=== PATIENT | male | born 1975 | race Caucasian/White ===

== ENCOUNTER 2023-03-25 08:48 | Inpatient (IN) ==
[~2023-03-25 08:48] MED LIST: Patient's ALLERGY Info needs ENTERED SCH
--- NOTE | 2023-03-25 09:29 | Emergency Department Note ---
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 Patient history is provided by [id number]. Patient had a care in [facility] for his brain cancer. He had surgical resection with almost complete resolution of his cancer. He had an MRI that showed a small spot that could been scarring versus nonmalignant lesion previously. He is not had a seizure in 2+ years and is not on any antiseizure medications. Today he had a 8-minute tonic-clonic seizure as per [id number] who has medical training. He is now somewhat postictal, confused, does not member had a seizure. Unwitnessed fall, on apixaban. ROS: See above HPI for pertinent positives & negatives. A total of 10 systems reviewed and were otherwise negative. PAST MEDICAL HISTORY: See Below PAST SURGICAL HISTORY: See Below FAMILY HISTORY: See Below SOCIAL HISTORY: See Below HOME MEDICATIONS: See Below ALLERGIES: See Below VITALS: See Below PHYSICAL EXAMINATION: General: resting comfortably in no acute distress Head: Normocephalic and atraumatic Eyes: Normal inspection, extraocular muscles intact Ear, nose, throat: Normal external exam Neck: Normal range of motion Respiratory: lungs clear to auscultation bilaterally Cardiovascular: Regular rate/rhythm, no murmur GI: soft, nontender, no guarding or rebound Extremities: nontender, moves all extremities Neuro: The patient awake and alert, appropriately conversive, no focal deficits, symmetric faces, cranial nerves II through XII intact, no dysmetria Skin: Warm, dry, and intact MEDICAL DECISION MAKING: This is a 47-year-old male history as above presenting for seizure. Will do screening blood work, COVID-19 test (patient has been negative for COVID-19 in the last 2 weeks but both his brother and [id number] were symptomatic), and MRI of the brain to assess for his anaplastic astrocytoma. -Lab review showed no leukocytosis or anemia, electrolytes within normal limits, slight anion gap with low CO2, likely from seizure causing lactic acidosis, COVID/flu negative -I was alerted that patient was having aura sensation with right eye blurred vision and doubling of patient's words -Previously this is how patient had seizures -Given 2 mg of IV Ativan -Due to patient's unwitnessed fall and blood thinners, stat CT of the head was done. Transfer the patient to CT to evaluate for clinical instability -Patient had no recurrent seizure -Upon my wet read, I see no intracranial hemorrhage or signs of skull fracture -CT of the head reveals no acute cranial process on official radiology read -Patient loaded with 2 g of IV Keppra -Upon evaluation patient is much less confused, having no new neurodeficits -Patient will require admission at this time for medication management, further seizures/brain mass workup including MRI Differential diagnosis: Seizure, intracranial hemorrhage, brain mass ER treatment provided: See below Diagnostics interpreted by me: ECG: ECG independently interpreted by me with normal sinus rhythm, rate of 73, normal axis, normal MD, normal QRS, normal QTc, no ST segment elevations consistent with STEMI criteria Cardiac Monitoring: An order was placed for continuous cardiac monitoring. The monitor shows a rate of 74 with sinus rhythm. Laboratory studies: As stated above and show below. Imaging studies: See below. Critical Care Note: I have personally spent 30 minutes of critical care time in the direct management of this patient. This includes bedside care, interpretation of diagnostic studies, and testing, discussion with consultants, patient, and family members, and other required patient management activities. This 30 minutes is in excess of all separately billable procedures Past Med/Surg History Medical History (Updated 03/25/23 @ 16:44 by Le Ruth MD) History of pulmonary embolus (PE) Hyperlipidemia Tonic-clonic seizure Social History Smoking Status: Former smoker Preferred Language: Indian Beliefs That Will Affect Care: Hoahaoism Feels Safe at Home: Yes Allergies Allergies Allergy/AdvReac Type Severity Reaction Status Date / Time No Known Allergies Allergy Unverified 03/25/23 14:08 Home Meds Home Medications Medication Instructions Recorded Confirmed apixaban 5 mg tablet 5 mg PO BID 03/25/23 03/25/23 atorvastatin 10 mg tablet 10 mg PO HS 03/25/23 03/25/23 Results & Data (ED) Vital Signs Vital Signs - 24 hr 03/25/23 08:43 03/25/23 08:52 03/25/23 08:55 Temperature 36.6 C Temperature Source Oral Pulse Rate 97 H 92 H Pulse Rate from SpO2 Sensor Respiratory Rate 16 Blood Pressure 89/67 L Blood Pressure [Left Arm] Blood Pressure Mean 74 Blood Pressure Mean [Left Arm] Pulse Oximetry 96 Oxygen Delivery Method Room Air Sepsis Recent Fever Within 48 Hours No Sepsis New/Unexplained Change in Mental Status N/A Sepsis Action Taken by Nursing No Action Required 03/25/23 09:15 03/25/23 10:57 03/25/23 11:01 Temperature Temperature Source Pulse Rate 83 85 Pulse Rate from SpO2 Sensor 84 Respiratory Rate 15 15 Blood Pressure 140/80 137/86 Blood Pressure [Left Arm] 124/86 Blood Pressure Mean 100 103 Blood Pressure Mean [Left Arm] 98 Pulse Oximetry 94 94 Oxygen Delivery Method Room Air Sepsis Recent Fever Within 48 Hours Sepsis New/Unexplained Change in Mental Status Sepsis Action Taken by Nursing 03/25/23 11:30 Temperature Temperature Source Pulse Rate 86 Pulse Rate from SpO2 Sensor Respiratory Rate 24 Blood Pressure 125/95 Blood Pressure [Left Arm] Blood Pressure Mean 105 Blood Pressure Mean [Left Arm] Pulse Oximetry Oxygen Delivery Method Sepsis Recent Fever Within 48 Hours Sepsis New/Unexplained Change in Mental Status Sepsis Action Taken by Nursing Laboratory Data 03/25/23 09:03 03/25/23 09:03 Lab Results 03/25/23 03/25/23 03/25/23 Range/Units 09:03 09:09 09:25 WBC 8.73 (4.8-10.8) K/ul RBC 5.23 (4.70-6.10) M/uL Hgb 15.4 (14.0-18.0) g/dl POC Hgb 15.6 (14.0-18.0) g/dl Hct 46.7 (42.0-52.0) % POC Hct 46 (42-52) % MCV 89.3 (80.0-100.0) fL MCH 29.4 (25.0-34.0) pg MCHC 33.0 (32.0-36.0) g/dL RDW Std Deviation 42.2 (36.4-46.3) fL RDW Coeff of Aj 12.8 (11.5-14.5) % Plt Count 285 (130-400) K/uL MPV 9.7 (9.4-12.4) fL Immature Gran % (Auto) 0.2 % Neut % (Auto) 43.1 % Lymph % (Auto) 44.3 % [place] % (Auto) 9.2 % Eos % (Auto) 2.6 % Baso % (Auto) 0.6 % Neut # (Auto) 3.76 (1.40-6.50) K/uL Lymph # (Auto) 3.87 H (1.20-3.40) K/uL [place] # (Auto) 0.80 H (0.11-0.59) K/uL Eos # (Auto) 0.23 (0.00-0.50) K/uL Baso # (Auto) 0.05 (0.00-0.20) K/uL Immature Gran # (Auto) 0.02 (0.01-0.20) K/uL POC Sodium 140 (135-144) mmol/L Sodium 140 (136-145) mmol/L POC Potassium 3.8 (3.3-5.0) mmol/L Potassium 3.9 (3.5-5.1) mmol/L POC Chloride 103 (101-112) mmol/L Chloride 103 (98-107) mmol/L Carbon Dioxide 21 (21-32) mmol/L POC Total CO2 20 L (24-31) mmol/L Anion Gap 16 H (3-11) POC Anion Gap 22.0 (16-25) mmol/L POC BUN 14 (7-18) mg/dl BUN 15 (6-23) mg/dl Creatinine 0.88 (0.6-1.4) mg/dl POC Creatinine 0.9 (0.6-1.3) mg/dl Est Cr Clr Drug Dosing 132.5 ml/min Est GFR ( Amer) 117.7 ml/min Est GFR (Non-Af Amer) 101.6 ml/min BUN/Creatinine Ratio 17.0 (10-20) Glucose 128 H (70-99(Fasting)) mg/dl POC Glucose (other) 121 H (70-99) mg/dl Calcium 9.5 (8.6-10.3) mg/dl POC Ioniz Calcium Jignesh 1.21 (1.12-1.32) mmol/l Magnesium 2.0 (1.7-2.4) mg/dl Total Bilirubin 0.9 (0.2-1.0) mg/dl AST 16 (13-39) U/L ALT 22 (7-52) U/L Alkaline Phosphatase 50 (34-104) U/L Total Protein 6.9 (6.0-8.3) gm/dl Albumin 4.5 (3.4-5.0) gm/dl Globulin 2.4 L (2.5-4.0) gm/dl Albumin/Globulin Ratio 1.9 (0.9-2) SARS-CoV-2 (PCR) NEGATIVE (Negative) Influenza Type A (PCR) Negative (Neg) Influenza Type B (PCR) Negative (Neg) RSV (RT-PCR) Negative (Neg) Administered Medications Lorazepam 2 mg/ Syringe 2 mls @ 2 mls/min IV Q5M PRN PRN Reason: seizure Last Admin: 03/25/23 13:31 Dose: 2 mls/min Documented By: CPB Discontinued Medications Gadobutrol (Gadobutrol 30ml Vial) 10 ml IV ONCE ONE Stop: 03/25/23 14:30 Last Admin: 03/25/23 14:29 Dose: 10 ml Documented By: TONY Levetiracetam 2,000 mg/ Sodium (Chloride) 270 mls @ 999 mls/hr IV NOW STA Stop: 03/25/23 11:19 Last Infusion: 03/25/23 11:53 Dose: Infused Documented By: Admin: 03/25/23 11:26 Dose: 999 mls/hr Documented By: CPB Acetaminophen (Ofirmev) 1,000 mg in 100 mls @ 400 mls/hr IV NOW STA Stop: 03/25/23 14:18 Last Infusion: 03/25/23 15:08 Dose: Infused Documented By: Admin: 03/25/23 14:50 Dose: 400 mls/hr Documented By: CPB Lorazepam (Lorazepam 1 Mg/1 Ml Syr Ed Inj Use) Confirm Administered Dose 2 mg .ROUTE .STK-MED ONE Stop: 03/25/23 10:44 Last Admin: 03/25/23 10:59 Dose: 2 mg Documented By: ML Lorazepam (Lorazepam 1 Mg/1 Ml Syr Ed Inj Use) Confirm Administered Dose 2 mg .ROUTE .STK-MED ONE Stop: 03/25/23 13:28 Last Admin: 03/25/23 13:31 Dose: Not Given Documented By: CPB Imaging Data Radiologist's Impression: Brain MRI 03/25/23 09:19 MR brain wo/w con HISTORY: 47 years-old Male hx of anaplastic astrocytoma sx, now Seizure Acute seizure-like activity with prior intra-axial mass resection. COMPARISON: Head CT of same day. TECHNIQUE: Multiplanar and multisequence MRI of the brain was obtained both with and without the use of IV contrast. FINDINGS: Mildly motion degraded exam. Left parietal lobe of 4.5 cm resection cavity/encephalomalacia with adjacent craniotomy changes that are again noted. Punctate foci of susceptibility artifact are likely postsurgical. No acute or subacute infarct is identified. The midline structures appear unremarkable. There is no acute intracranial hemorrhage, midline shift, abnormal extra-axial collection or new intra-axial mass. There is a moderate amount of vasogenic edema within the left parietal lobe, which is most pronounced in the anterior and superior to the resection cavity with extension to the posterior corpus callosum. Within this distribution, there is no restricted diffusion, abnormal enhancement or discrete mass identified. No acute seizure focus is identified. No evidence of mesiotemporal sclerosis. The cerebral venous sinuses and major arterial flow voids appear patent. The skull, orbits and soft tissues are unremarkable. Minimal mucosal thickening of the paranasal sinuses. IMPRESSION: 1. No acute intracranial abnormality. No acute or subacute infarct. 2. No acute seizure focus or evidence of mesiotemporal sclerosis. 3. Left parietal lobe resection with craniotomy. Vasogenic edema within the left parietal lobe surrounding the resection cavity is nonspecific and may be on a post-treatment related basis. 4. No midline shift or hydrocephalus. ACT 112: Negative or not required by law. The above report was generated using voice recognition software. It may contain grammatical, syntax or spelling errors. Dictated: 03/25/2023 2:43 PM Transcribed: 03/25/2023 2:57 PM Matthew [id number] [email or web address] Electronically signed by: Nik Huddleston M.D. 03/25/2023 4:[address] 03/25/23 10:46 CT head/brain wo con CLINICAL HISTORY: 47 years-old Male with Seizure. Acute seizure like activity with altered mental status TECHNIQUE: Multiple axial CT images of the head were obtained without contrast. A dose lowering technique was utilized adhering to the principles of ALARA. CT DOSE: 625.8 mGy.cm COMPARISON: None. FINDINGS: No acute intracranial hemorrhage, midline shift, intracranial mass, hydrocephalus, territorial ischemia or abnormal extra-axial collection. 3.3 cm hypodense left periventricular parietal focus of encephalomalacia is noted with left parieto-occipital craniotomy. Additionally, there is a 1.3 cm hypodensity within the right lentiform nucleus/external capsule distribution. A well-defined low density within the left parietal white matter anterior to the focus of encephalomalacia is noted with preserved weston-white differentiation, likely posttreatment related basis. The calvarium is intact. Right optic nerve drusen. The paranasal sinuses, mastoid air cells, and middle ear cavities are clear. IMPRESSION: 1. No acute intracranial hemorrhage, midline shift or hydrocephalus. 2. Left parietal encephalomalacia with adjacent craniotomy changes. 3. Probable chronic lacunar infarct within the right lentiform nucleus/external capsule distribution. ACT 112: Negative or not required by law. The above report was generated using voice recognition software. It may contain grammatical, syntax or spelling errors. Electronically signed by: Nik Huddleston M.D. 03/25/2023 11:00 AM Discharge Plan Visit Data Chief Complaint: Seizure Stated Complaint: seizure ED Provider: Le Ruth Discharge Problem: Seizure Patient Disposition: Admitted As Inpatient Discharge Instructions Interventions: ED Discharge Assessment Last Done: 03/25/23 14:25
[2023-03-25 09:38] LABS: Basophils # (auto) 0.05 K/uL (0.00-0.20); Basophils % (auto) 0.6 %; Eosinophils # (auto) 0.23 K/uL (0.00-0.50); Eosinophils % (auto) 2.6 %; Hematocrit (blood only) 46.7 % (42.0-52.0); Hemoglobin 15.4 g/dl (14.0-18.0); Immature Granulocytes # (auto) 0.02 K/uL (0.01-0.20); Immature Granulocytes % (auto) 0.2 %; Lymphocytes # (auto) 3.87 K/uL (1.20-3.40); Lymphocytes % (auto) 44.3 %; Mean Corpuscular Hemoglobin 29.4 pg (25.0-34.0); Mean Corpuscular Volume 89.3 fL (80.0-100.0); Mean Platelet Volume 9.7 fL (9.4-12.4); Monocytes % (auto) 9.2 %; Neutrophils # (auto) 3.76 K/uL (1.40-6.50); Neutrophils % (auto) 43.1 %; Platelet Count 285 K/uL (130-400); RDW Coefficient of Variation 12.8 % (11.5-14.5); RDW Standard Deviation 42.2 fL (36.4-46.3); Red Blood Count 5.23 M/uL (4.70-6.10); White Blood Count 8.73 K/ul (4.8-10.8)
[2023-03-25 09:47] LABS: Albumin Globulin Ratio 1.9 (0.9-2); Albumin Level 4.5 gm/dl (3.4-5.0); Bilirubin,Total 0.9 mg/dl (0.2-1.0); Calcium 9.5 mg/dl (8.6-10.3); Creatinine Clr Calc Pharmacy 132.5 ml/min; Est GFR (African American) 117.7 ml/min; Est GFR (Non-African American) 101.6 ml/min; Globulin 2.4 gm/dl (2.5-4.0); Potassium 3.9 mmol/L (3.5-5.1); Total Protein 6.9 gm/dl (6.0-8.3)
--- OUTSIDE RECORDS SUMMARY | 2023-03-25 09:55 | External Medical Summary | Continuity of Care Document ---
Author Name Unknown Organization [facility] [place] [address] [place] [phone] Care Team Providers Care Landscape Manager Name Role Phone Lesley Melgoza Primary Care Physicia n [phone] [id number] Date(s): 03/17/[facility] - [facility]/17/[facility] [address] [place] [address] [place] [address] [phone] Encounter Diagnosis Encounter to establish care(Discharge Diagnosis) - 03/16/23 Annual physical exam(Discharge Diagnosis) - 03/16/23 Astrocytoma(Discharge Diagnosis) - 03/17/23 Memory impairment(Discharge Diagnosis) - 03/17/23 Urinary dysfunction(Discharge Diagnosis) - 03/17/23 Pre-diabetes(Discharge Diagnosis) - 03/17/23 Hyperlipidemia(Discharge Diagnosis) - 03/17/23 H/O blood clots(Discharge Diagnosis) - 03/17/23 Screening for colon cancer(Discharge Diagnosis) - 03/17/23 Discharge Disposition: Home or Self Care Attending Physician: DO Melgoza Gretchen Elizabeth Allergies, Adverse Reactions, Alerts No Known Allergies Medications atorvastatin 10 mg oral tablet Start: 09/28/21 13:13:00 EDT, 1 tab, PO, qhs Start Date: 09/28/21 Status: Ordered Eliquis 5 mg oral tablet Start: 02/02/21 8:23:00 EST, 1 tab, PO, bid Start Date: 02/02/21 Status: Ordered Medical Marijuana Start: 06/25/21 10:15:00 EDT, 1 inh, inhaled Start Date: 06/25/21 Status: Ordered Pepcid Start: 09/18/21 14:30:00 EDT Start Date: 09/18/21 Status: Ordered Tylenol Start: 04/10/20 14:14:00 EST, 1,000 mg =, PO, q8h, as needed, PRN: fever/mild pain Start Date: 04/10/20 Status: Ordered Vitamin B1 Start: 11/18/21 8:02:00 EDT, See Instructions Start Date: 11/18/21 Status: Ordered Vitamin D3 2000 intl units (50 mcg) oral capsule Start: 09/15/20 13:14:00 EDT, 1 cap, PO, Daily Start Date: 09/15/20 Status: Ordered Mental Status 03/17/23 Barriers to Learning one year None evide nt Mandatory Health Literacy Documentation Yes Health Literacy Communication Barriers N ever Primary Language Georgian Problem List Condition Confirmation Course Effective Dates Status H ealth Status Informant Carpal tunnel syndrome Confirmed Active Astrocytoma Confirmed Active H/O blood clots Confirmed Active Hyperlipidemia Confirmed Active Brain lesion Confirmed Active Pre-diabetes Confirmed Active Thyroid nodule Confirmed Active Diagnosis Diagnosis Type Effective Dates Health Status Clinical Service Informant Annual physical exam Discharge Diagnosis 03/16/23 Encounter to establish care Discharge Diagnosis 03/16/23 Astrocytoma Discharge Diagnosis 03/17/23 Memory impairment Discharge Diagnosis 03/17/23 Pre-diabetes Discharge Diagnosis 03/17/23 H/O blood clots Discharge Diagnosis 03/17/23 Urinary dysfunction Discharge Diagnosis 03/17/23 Hyperlipidemia Discharge Diagnosis 03/17/23 Screening for colon cancer Discharge Diagnosis 03/17/23 Non-Specified Procedures Procedure Date Related Diagnosis Body Site Status CTR - carpal tunnel release 1 05/2021 Completed Craniotomy 2 04/15/20 Completed fatty Lipoma removal from le ft shoulder surgery 2016 Completed 1Bilateral 2with tumor removal Vital Signs Most recent to oldest [Reference Range]: 1 Height 185 cm (03/17/23 12:50 PM) Patient Weight 103.9 kg (03/17/23 12:50 PM) Body Mass Index 30.36 kg/m2 (03/17/23 12:50 PM) Temperature [36.5-37.9 DegC] 36.6 DegC (03/17/23 12:50 PM) Respiratory Rate 18 br/min (03/17/23 12:50 PM) Blood Pressure 118/86mmHg (03/17/23 12:50 PM) Cuff Pulse Pressure 32 mmHg (03/17/23 12:50 PM) BP Location # 1 Left Arm (03/17/23 12:50 PM) Social History Social History Type Response Tobacco Former smoker, Cigar ettes Smoking Status Never smoked cigaret mita Sex Male Implantable Device List Procedure Provider Procedure Date Device Type Site Unknown Unknown 04/15/20 Unknown Unknown Device Identifier Serial Number Lot or Batch Number Manufacturing Date Expiration Date Distinct Identification Code MRI Safety Implantable Status Assigning Authority Unknown Unknown [id number] Unknown 11/04/22 Unknown Unknown Active Unk nown Unknown Unknown na Unknown Unknown Unknown Unknown Active Unkn own Unknown Unknown na Unknown Unknown Unknown Unknown Active Unkn own Unknown Unknown na Unknown Unknown Unknown Unknown Active Unkn own Patient Care team information Care Team Personnel Name: MD Shaheen, Herrera Cazares Position: Physician - Neurosurgery Member Role: Lifetime Relationship Address: Address: [address] [place] [address] [place] Name: West Reveles Kayla Position: Pharmacist Member Role: Pharmacy - Lifetime Name: DAIANA King Ashley Position: Physician Nailhead Puncher - Neurosurgery Member Role: Lifetime Relationship Address: Address: [address] [place] [address] [place] Name: MD Lucy, Timmy Shore Position: Resident Member Role: Lifetime Relationship Address: Address: [address] [place] [address] Name: DO Melgoza Gretchen Elizabeth Position: Physician - Family Med Member Role: Primary Care Provider Address: Address: [address] [place] [address] [place] Name: West Pool Jennifer Position: Pharmacist Driver Education Instructor Member Role: Pharmacy - Lifetime Name: West Glynn Kyle Position: Pharmacist Member Role: Pharmacy - Lifetime Address: Address: [address] [place] [address] [place] Care Team Related Persons Name: ISABEL CARRASCO Address: [place] Address: home [address] [facility], [place] [id number]
--- OUTSIDE RECORDS SUMMARY | 2023-03-25 09:55 | External Medical Summary | Continuity of Care Document ---
Author Name Unknown Organization [facility] [address] Address [address] [facility] [place] [id number] Care Team Providers Care Silviculture Professor Name Role Phone Lesley Melgoza Primary Care Physicia n [phone] En[facility] [id number] Date(s): 03/18/23 - 03/18/23 [facility] [address] [facility] [address], [address] [place], [place] [phone] Encounter Diagnosis Hyperlipidemia, unspecified(Final) - Prediabetes(Final) - Other difficulties with micturition(Final) - Discharge Disposition: Home or Self Care Attending Physician: DO Melgoza Gretchen Elizabeth Referring Physician: DO Melgoza Gretchen Elizabeth Allergies, Adverse [...] PO, Daily Start Date: 09/15/20 Status: Ordered Problem List Condition Confirmation Course Effective Dates Status H ealth Status Informant Carpal tunnel syndrome Confirmed Active Astrocytoma Confirmed Active H/O blood clots Confirmed Active Hyperlipidemia Confirmed Active Brain lesion Confirmed Active Pre-diabetes Confirmed Active Thyroid nodule Confirmed Active Procedures Procedure Date Related Diagnosis Body Site Status CTR - carpal tunnel release 1 05/2021 Completed Craniotomy 2 04/15/20 Completed fatty Lipoma removal from le ft shoulder surgery 2016 Completed 1Bilateral 2with tumor removal Results Laboratory List Name Date Comprehensive Metabolic Panel (COMP META B PANEL) 03/18/23 Hemoglobin A1C (HEMOGLOBIN, A1C) 03/18/23 Lipid Profile (LIPOPROTEINS) 03/18/23 PSA Reflex to FREE PSA (PSA REFLEX TO FR EEPSA) 03/18/23 Most recent to oldest [Reference Range]: 1 eGFR CKD-EPI [>60 mL/min/1.73 m2] >90 mL /min/1.73 m2 1 (03/18/23 9:34 AM) Estimated Average Glucose 117 mg/dL 2 (03/18/23 9:34 AM) Non-HDL 114 mg/dL 3 (03/18/23 9:34 AM) PSA Screen [<2.51 ng/mL] 0.54 ng/mL (03/18/23 9:34 AM) Estimated CrCl 142.59 mL/min (03/18/23 10:04 AM) Anion Gap [5-14 mmol/L] 6 mmol/L (03/18/23 9:34 AM) Alb [3.5-5.0 g/dL] 4.3 g/dL (03/18/23 9:34 AM) Alk Phos [38-126 unit/L] 42 unit/L (03/18/23 9:34 AM) ALT [<50 unit/L] 32 unit/L (03/18/23 9:34 AM) AST [15-46 unit/L] 23 unit/L (03/18/23 9:34 AM) BUN [7-20 mg/dL] 16 mg/dL (03/18/23 9:34 AM) Ca [8.4-10.2 mg/dL] 9.4 mg/dL (03/18/23 9:34 AM) Chol/HDL 3 (03/18/23 9:34 AM) Chol [125-200 mg/dL] 165 mg/dL (03/18/23 9:34 AM) Cl- [96-107 mmol/L] 103 mmol/L (03/18/23 9:34 AM) HCO3 [22-30 mmol/L] 30 mmol/L (03/18/23 9:34 AM) Cret [0.70-1.30 mg/dL] 0.80 mg/dL (03/18/23 9:34 AM) HbA1c [4.0-6.0 %] 5.7 % (03/18/23 9:34 AM) Glu [74-106 mg/dL] 98 mg/dL (03/18/23 9:34 AM) HDL [>35 mg/dL] 51 mg/dL (03/18/23 9:34 AM) K [3.5-5.1 mmol/L] 4.4 mmol/L (03/18/23 9:34 AM) LDL Chol, Calculated [50-130 mg/dL] 96 m g/dL (03/18/23 9:34 AM) Na [137-145 mmol/L] 139 mmol/L (03/18/23 9:34 AM) T Bili [0.2-1.3 mg/dL] 1.0 mg/dL (03/18/23 9:34 AM) Prot [6.3-8.2 g/dL] 7.1 g/dL (03/18/23 9:34 AM) TG [<200 mg/dL] 92 mg/dL (03/18/23 9:34 AM) 1Result Comment: Testing Performed By: Dept of Pathology [facility] [address], [address], [place] [address] 2Result Comment: Testing Performed By: Dept of Pathology [facility] [address], [address], [place] [address] 3Result Comment: Testing Performed By: Dept of Pathology [facility] [address], [address], [place] [address] Social History Social History Type Response Tobacco Former smoker, Cigar ettes Smoking Status Never smoked cigaret mita Sex Male Implantable Device List Procedure Provider Procedure Date Device Type Site Unknown Unknown 04/15/20 Unknown Unknown Device Identifier Serial Number Lot or Batch Number Manufacturing Date Expiration Date Distinct Identification Code MRI Safety Implantable Status Assigning Authority Unknown Unknown [id number] Unknown 11/04/22 Unknown Unknown Active Unk nown Unknown Unknown na Unknown Unknown Unknown Unknown Active Unkn own Unknown Unknown na Unknown Unknown Unknown Unknown Active Unkn own Unknown Unknown na Unknown Unknown Unknown Unknown Active Unkn own Patient Care team information Care Team Personnel Name: MD Shaheen, Herrera Cazares Position: Physician - Neurosurgery Member Role: Lifetime Relationship Address: Address: [address] [place] [address] [place] Name: West Reveles Kayla Position: Pharmacist Member Role: Pharmacy - Lifetime Name: DAIANA King Ashley Position: Physician Surveyor Hydrographic - Neurosurgery Member Role: Lifetime Relationship Address: Address: [address] [place] [address] [place] Name: MD Lucy, Timmy Shore Position: Resident Member Role: Lifetime Relationship Address: Address: [address] [place] [address] [place] Name: DO Melgoza Gretchen Elizabeth Position: Physician - Family Med Member Role: Primary Care Provider Address: Address: [address] [place] [id number] [place] Name: West Pool Jennifer Position: Pharmacist Management Manager Member Role: Pharmacy - Lifetime Name: West Glynn Kyle Position: Pharmacist Member Role: Pharmacy - Lifetime Address: Address: [address] [place] [address] Care Team Related Persons Name: ISABEL CARRASCO Address: [place] Address: home [address] [place], [place] [id number]
[2023-03-25 10:13] LABS: Influenza A virus by PCR Negative (Neg); Influenza B virus by PCR Negative (Neg); RSV by PCR Negative (Neg); SARS CoV2 RNA(COVID-19) Ceph NEGATIVE (Negative)
[2023-03-25] MEDS ORDERED: LORazepam 1 MG/1 ML SYR ED Inj Use ONE ×2 (10:43→13:27)
--- NOTE | 2023-03-25 11:02 | CT Scan Report ---
CT head/brain wo con CLINICAL HISTORY: 47 years-old Male with Seizure. Acute seizure like activity with altered mental st atus TECHNIQUE: Multiple axial CT images of the head were obtained without contrast. A dose lowering tech nique was utilized adhering to the principles of ALARA. CT DOSE: 625.8 mGy.cm COMPARISON: None. FINDINGS: No acute intracranial hemorrhage, midline shift, intracranial mass, hydrocephalus, territorial ischem ia or abnormal extra-axial collection. 3.3 cm hypodense left periventricular parietal focus of enceph alomalacia is noted with left parieto-occipital craniotomy. Additionally, there is a 1.3 cm hypodensi ty within the right lentiform nucleus/external capsule distribution. A well-defined low density withi n the left parietal white matter anterior to the focus of encephalomalacia is noted with preserved gr ay-white differentiation, likely posttreatment related basis. The calvarium is intact. Right optic nerve drusen. The paranasal sinuses, mastoid air cells, and midd le ear cavities are clear. IMPRESSION: 1. No acute intracranial hemorrhage, midline shift or hydrocephalus. 2. Left parietal encephalomalacia with adjacent craniotomy changes. 3. Probable chronic lacunar infarct within the right lentiform nucleus/external capsule distribution. ACT 112: Negative or not required by law. The above report was generated using voice recognition software. It may contain grammatical, syntax o r spelling errors. Electronically signed by: Nik Huddleston M.D. 03/25/2023 11:00 AM
--- NOTE | 2023-03-25 11:20 | History & Physical Report ---
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; patient had previously been on carbamazepine, which was discontinued over a year ago, and patient patient has not experienced a seizure since that time Head CT revealed no acute intracranial hemorrhage, but noted left parietal encephalomalacia, and chronic lacunar infarct within the right lentiform nucleus EKG NSR at 73 bpm; QTc 434 Patient received 2 mg Ativan and 2000 mg loading dose of Keppra in the ED No leukocytosis; afebrile COVID, flu, RSV negative Glucose WNL at 128 on arrival Elevated anion gap at 16 Seizure precautions Pad railing on the bed Fall precautions Neurochecks q4h Continuous telemetry monitoring Ativan 2mg IV q5m as needed for seizures x 3 max doses Keppra 750 mg p.o. BID while inpatient Neurology consulted to determine future course of antiepileptic treatment A.m. 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 Jamison) in February 2023 with repeat MRI with no new findings Brain MRI ordered, pending (3) Palliative care by specialist: Plan: Establish care with [facility] palliative care medicine in February 2023 (4) Hyperlipidemia: Plan: Continue atorvastatin (5) History of pulmonary embolus (PE): Plan: Hx of saddle PE in 2020 while undergoing chemotherapy (may also have been secondary to COVID at the time) Fam hx of PEs Continue apixaban Plan Disposition: Admit to PCU telemetry Full code Keep n.p.o. for now until patient becomes more oriented, then advance to regular diet as tolerated VTE PPx: On Eliquis History of Present Illness Chief Complaint: Seizure Primary Care Provider: NO PCP Talib is a 47-year-old male with PMH of anaplastic astrocytoma and tonic- clonic seizures. He presented via EMS for an 8-10 minute generalized tonic- clonic seizure on 03/25/2023. Seizure was witnessed by the patient's ygswmn-kh-cbs (Betty), who is at the bedside and provides most of the history. Gybngw-jx-scn reports that it was a normal morning, and that the patient had just awoken, grabbed coffee, and was sitting down to watch TV, and he fell from a seated position and began convulsing. Full LOC. Patient reported visual auras and spots just before seizing. According to hcirxh-mh-nqc, he was diaphoretic, cyanotic, and gasping for air, and the limzum-oi-ava rolled the patient onto his left side. Patient bit his tongue. No loss of urinary continence, however he had just use the bathroom beforehand. Patient reportedly hit his left forehead on the carpet just before seizing. Postictal state and amnesia following the event. Patient is on Eliquis for history of a saddle PE in 2020 while undergoing chemotherapy (likely secondary to COVID at the time). Kssemp-rv-cgh reports that he did not take his regular medication this morning, and that there have been no recent changes in medicine. He was previously on carbamazepine 300 mg, but was taken off of all seizure medications just over a year ago as he had not had any seizures in a couple years. No recent injuries/trauma to the head or neck. No slurred speech or unilateral deficits prior to event. 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 Patient denies recent smoking, tobacco use. Endorses mild social alcohol use. Patient lives with his brother/POA, Reid Gomez, who is also our [facility] rating specialist. Vital stable at time of admission. ED course: Ativan 2 mg injection Keppra 2000 mg IV Unable to obtain ROS given patient's current postictal state Home Medications Medication Instructions Recorded Confirmed Type apixaban 5 mg tablet 5 mg PO BID 03/25/23 03/25/23 History atorvastatin 10 mg tablet 10 mg PO HS 03/25/23 03/25/23 History Past Med/Surg History Medical History (Updated 03/25/23 @ 12:50 by Kaz Agarwal PA-C) History of pulmonary embolus (PE) Hyperlipidemia Tonic-clonic seizure Social History Smoking Status: Former smoker Preferred Language: Kyrgyz Beliefs That Will Affect Care: Mormonism Feels Safe at Home: Yes Review of Systems Review of Systems: See HPI above Physical Exam Physical Exam: General: no acute distress; lethargic; dazed; non-toxic appearing; well- nourished; cooperative HEENT: Superficial, erythematous, brush burn on the left forehead; no scleral icterus; PERRLA w/ EOMs intact; moist mucus membrane; dried blood surrounding the tongue; vision and hearing intact; negative hemotympanum b/l Neck: supple; no lymphadenopathy; trachea midline Skin: warm, dry without signs of tenting; no cyanosis; no rashes, bruising, les ions, or erythema noted CV: chest wall NTP; RRR; S1/S2 normal; no murmurs/rubs/gallops; pulses intact and symmetric at radial, DP, and PT Lungs: no acute respiratory distress; symmetrical chest wall expansion; clear breath sounds across all lung wade w/o adventitious sounds; no wheezing ABD: Soft, NTP; BS present; no rebound/guarding; no distention MSK: no tics or fasciculations; no edema noted in the LEs b/l, nonerythematous; 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; no unilateral deficits appreciated on exam Neuro: Patient is oriented to name/, not oriented to month or location; lethargic; flat mood and affect; fluent speech - no slurred speech; patient reports that sensation is intact in the LEs B/L Results & Data Results & Data Vital Signs (Past 12 Hours) Vital Signs Temp Pulse Resp BP BP Pulse Ox O2 Del Method 03/25/23 10:57 83 15 140/80 94 03/25/23 09:15 124/86 03/25/23 08:55 Room Air 03/25/23 08:52 92 H 03/25/23 08:43 36.6 C 97 H 16 89/67 L 96 Laboratory Results Abnormal lab results 03/25/23 Range/Units 09:03 Lymph # (Auto) 3.87 H (1.20-3.40) K/uL Archer # (Auto) 0.80 H (0.11-0.59) K/uL Anion Gap 16 H (3-11) Glucose 128 H (70-99(Fasting)) mg/dl Globulin 2.4 L (2.5-4.0) gm/dl Diagnostic Findings Head CT 03/25/23 10:46 CT head/brain wo con CLINICAL HISTORY: 47 years-old Male with Seizure. Acute seizure like activity with altered mental status TECHNIQUE: Multiple axial CT images of the head were obtained without contrast. A dose lowering technique was utilized adhering to the principles of ALARA. CT DOSE: 625.8 mGy.cm COMPARISON: None. FINDINGS: No acute intracranial hemorrhage, midline shift, intracranial mass, hydrocephalus, territorial ischemia or abnormal extra-axial collection. 3.3 cm hypodense left periventricular parietal focus of encephalomalacia is noted with left parieto-occipital craniotomy. Additionally, there is a 1.3 cm hypodensity within the right lentiform nucleus/external capsule distribution. A well-defined low density within the left parietal white matter anterior to the focus of encephalomalacia is noted with preserved weston-white differentiation, likely posttreatment related basis. The calvarium is intact. Right optic nerve drusen. The paranasal sinuses, mastoid air cells, and middle ear cavities are clear. IMPRESSION: 1. No acute intracranial hemorrhage, midline shift or hydrocephalus. 2. Left parietal encephalomalacia with adjacent craniotomy changes. 3. Probable chronic lacunar infarct within the right lentiform nucleus/external capsule distribution. ACT 112: Negative or not required by law. The above report was generated using voice recognition software. It may contain grammatical, syntax or spelling errors. Electronically signed by: Nik Huddleston M.D. 03/25/2023 11:00 AM Code Status & VTE Plan Code Status Full code VTE Prophylaxis Plan VTE Prophylaxis will be ordered: Yes Supervising Physician Co-Signing Physician Notes Talib is a 47-year-old male with a past medical history of anaplastic as trocytoma s/p surgical resection 04/15/2020, radiation and low-dose temozolomide treatment completed 07/03/2020, and adjuvant temozolomide completed 09/2021 who was previously on carbamazepine for seizure prophylaxis which was discontinued more than a year ago who presents with his first episode of seizure activity in the last 2 years. 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 He did not have any home abortive seizure medication and was brought to the ER. Patient received Ativan in the ER, and appeared postictal without focal weakness. He did have tongue lesions, he had used the bathroom shortly prior to his episode but did not have any bowel or bladder incontinence. At time of assessment he fatigues easily and has 4/5 strength in upper and lower extremities bilaterally without asymmetry with sensation soft touch intact in hands and feet. He is oriented to name but is disoriented to date and place and appears postictal but nontoxic. Last short interval MRI December 2022 with punctate area of new enhancement, patient was pending surveillance follow-[place] [facility] [place] and repeat serial imaging Family reports that he was recently on a cruise and returned last week. Family has been positive for COVID however they have been diligent with mask wearing and wiping down surfaces, patient has had several COVID tests including day of admission (flu/COVID/RSV quad screen (which is negative. He has not had any GI symptoms. Following development of second episode of aura concerning for seizure prodrome patient was loaded with Keppra in the ER. CThead is with chronic lacunar stroke, postsurgical changes, and no acute findings or changes. No evidence of intracranial bleed is present. Patient is on Eliquis for history of DVT/PE. Has a family history of thromboembolism, and patient developed a saddle PE in the setting of both COVID and chemotherapy in the past. Malignancy history: Anaplastic astrocytoma, grade 3 Resection 2020 Radiation and low-dose temozolomide completed 07/03/2020 Adjuvant temozolomide completed 09/2021. [place] [facility] [place], Dr. Jamison Last short interval MRI per [facility] [place] 12/2022 with a punctate new area of enhancement, patient was pending 2-month surveillance with follow-up in Keppra loaded, neuroconsulted. Keppra twice daily 750 continued for stroke prophylaxis, appreciate recommendations. no bleeding is appreciated, patient has high DVT/PE risk and can continue eliquis. Agree with assessment and management above PG Care Time/CCT Total # of Minutes Spent Total Time Spent with Patient: Total time spent is greater than 50% in coordination of care (as documented) at patient's floor/unit and/or counseling patient: [place] [address] INT INP/OBS CARE 3/75MIN Patient Type New Medical Decision Making High Complexity Diagnoses Tonic-clonic seizure G40.409 Anaplastic astrocytoma C71.9 Palliative care by specialist Z51.5 Hyperlipidemia E78.5 History of pulmonary embolus (PE) Z86.711
[2023-03-25] MEDS ORDERED: LORazepam 2 MG in SYRINGE 1 ML IV PRN (11:45)
[2023-03-25 12:00] LABS: iSTAT Creatinine 0.9 mg/dl (0.6-1.3); iSTAT Hemoglobin 15.6 g/dl (14.0-18.0); iSTAT Ionized Calcium 1.21 mmol/l (1.12-1.32); iSTAT Potassium 3.8 mmol/L (3.3-5.0)
[2023-03-25] MEDS ORDERED: ACETAMINOPHEN 1,000 MG/100 ML VIAL IV PRN (14:04)
[2023-03-25] MEDS ORDERED: ACETAMINOPHEN 1,000 MG/100 ML VIAL IV STA (14:04)
[2023-03-25] MEDS ORDERED: ONDANSETRON INJ 2 MG/ML 2 ML VIAL IV PRN (14:25)
[2023-03-25] MEDS ORDERED: GADOBUTROL 30ML VIAL IV ONE (14:29)
--- NOTE | 2023-03-25 16:14 | Magnetic Resonance Report ---
MR brain wo/w con HISTORY: 47 years-old Male hx of anaplastic astrocytoma sx, now Seizure Acute seizure-like activity with prior intra-axial mass resection. COMPARISON: Head CT of same day. TECHNIQUE: Multiplanar and multisequence MRI of the brain was obtained both with and without the use of IV contrast. FINDINGS: Mildly motion degraded exam. Left parietal lobe of 4.5 cm resection cavity/encephalomalacia with garland cent craniotomy changes that are again noted. Punctate foci of susceptibility artifact are likely pos tsurgical. No acute or subacute infarct is identified. The midline structures appear unremarkable. Th ere is no acute intracranial hemorrhage, midline shift, abnormal extra-axial collection or new intra- axial mass. There is a moderate amount of vasogenic edema within the left parietal lobe, which is mos t pronounced in the anterior and superior to the resection cavity with extension to the posterior cor pus callosum. Within this distribution, there is no restricted diffusion, abnormal enhancement or dis crete mass identified. No acute seizure focus is identified. No evidence of mesiotemporal sclerosis. The cerebral venous sinuses and major arterial flow voids appear patent. The skull, orbits and soft t issues are unremarkable. Minimal mucosal thickening of the paranasal sinuses. IMPRESSION: 1. No acute intracranial abnormality. No acute or subacute infarct. 2. No acute seizure focus or evidence of mesiotemporal sclerosis. 3. Left parietal lobe resection with craniotomy. Vasogenic edema within the left parietal lobe surrou nding the resection cavity is nonspecific and may be on a post-treatment related basis. 4. No midline shift or hydrocephalus. ACT 112: Negative or not required by law. The above report was generated using voice recognition software. It may contain grammatical, syntax o r spelling errors. Dictated: 03/25/2023 2:43 PM Transcribed: 03/25/2023 2:57 PM Matthew [id number] [email or web address] Electronically signed by: Nik Huddleston M.D. 03/25/2023 4:13 PM
--- NOTE | 2023-03-25 19:11 | Electrocardiogram Report ---
Test Reason : Blood Pressure : / mmHG Vent. Rate : 073 BPM Atrial Rate : 073 BPM P-R Int : 150 ms QRS Dur : 100 ms QT Int : 394 ms P-R-T Axes : 010 061 034 degrees QTc Int : 434 ms Normal sinus rhythm with sinus arrhythmia Normal ECG No previous ECGs available Confirmed by Bari Stark ([id number]) on 03/25/2023 7:11:06 PM Referred By: Confirmed By:Bari Stark
[2023-03-25] MEDS: ACETAMINOPHEN 325 MG TAB PO PRN (19:40)
[2023-03-25] MEDS: ATORVASTATIN 10 MG TAB PO SCH (19:40)
[2023-03-25] MEDS: APIXABAN 5 MG TABLET PO SCH (19:40)
--- NOTE | 2023-03-26 07:25 | Hospitalist Progress Note ---
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 BID while inpatient, continue as recommended by Neurology Neurology was consulted, recommendations as stated above CT-Brain, MRI-brain: consistent w/ left parietal lobe encephalomalacia, chronic lacunar infarct noted in r. lentiform nucleus CBC, BMP, mag AM labs Neurosurgery at [facility] contacted and awaiting their input (2) Anaplastic astrocytoma: Grade 3 S/p resection, chemo, and radiation in 2020 Initial dx in February 2020 after a GTC seizure Patient saw [facility] neurosurgery (Dr. Jamison) in February 2023 with repeat MRI with no new findings Brain MRI ordered, pending (3) Palliative care by specialist: Established care with [facility] palliative care medicine in February 2023 (4) Hyperlipidemia: Continue atorvastatin (5) History of pulmonary embolus (PE): Hx of saddle PE in 2020 while undergoing chemotherapy, while still with cancer and w/ COVID+ Dx at the time) Fam hx of PEs Continue apixaban Disposition: Admit to PCU telemetry Code status: Full code FEN/GI: Keep n.p.o. for now until patient becomes more oriented, then advance to regular diet as tolerated VTE PPx: On Eliquis Admission and Anticipated Discharge Date Admission Date: March 25, 2023 Supervising Physician Co-Signing Physician Notes I personally examined the patient and verified all torres points of history and exam, discussed case, and agree with decision making with Dr Butcher feeling better now no further seizures. d/w pt and family in depth. vitals noted nad heent nc at mmm breathing unlabored no accessory muscles good effort skin no rashes no pallor or icterus seizure - keppra. neuro eval -> low likelihood of anything beyond scar tissue. pt/family would much prefer we close the loop with his neurosurgeon at [facility] as well -> he is not command and control this weekend; given the value of peace of mind p articularly given such a delicate and concerning situation - will watch into tuesday, push images to [facility], contact neurosurgeon otherwise as above Subjective Talib is a 47-year-old male with PMH of anaplastic astrocytoma and tonic- clonic seizures. He presented via EMS for an 8-10 minute generalized tonic- clonic seizure on 03/25/2023. Seizure was witnessed by the patient's mzpjwu-pb-tgb (Betty), who is at the bedside and provides most of the history. Xcwyxh-cv-ajh reports that it was a normal morning, and that the patient had just awoken, grabbed coffee, and was sitting down to watch TV, and he fell from a seated position and began convulsing. Full LOC. Patient reported visual auras and spots just before seizing. According to ottqby-yr-kjk, he was diaphoretic, cyanotic, and gasping for air, and the mauasg-fv-ztf rolled the patient onto his left side. Patient bit his tongue. No loss of urinary continence, however he had just use the bathroom beforehand. Patient reportedly hit his left forehead on the carpet just before seizing. Postictal state and amnesia following the event. Patient is on Eliquis for history of a saddle PE in 2020 while undergoing chemotherapy (likely secondary to COVID at the time). Itxctn-yg-vlc reports that he did not take his regular medication this morning, and that there have been no recent changes in medicine. He was previously on carbamazepine 300 mg, but was taken off of all seizure medications just over a year ago as he had not had any seizures in a couple years. No recent injuries /trauma to the head or neck. No slurred speech or unilateral deficits prior to event. 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 Patient denies recent smoking, tobacco use. Endorses mild social alcohol use. 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 Vital stable at time of admission. ED course: Ativan 2 mg injection Keppra 2000 mg IV Review of Systems Constitutional: + fatigue; no fever and no chills Eyes: no diplopia, no eye pain, not seeing flashes (has not seen colored spots in peripheral vision since yesterday's seizure) and no worsening vision Ear, Nose, Mouth, Throat: + dizziness; no ear pain, no sore throat , no dysphagia and no pain with swallowing Respiratory: no cough and no dyspnea Cardiovascular: no chest pain and no palpitations Gastrointestinal: no abdominal pain, no nausea, no vomiting, no constipation and no diarrhea/loose stools Genitourinary: no difficulty urinating or no urinary hesitancy (patient has appt w urology for Sx of BPH) Musculoskeletal: no myalgia Neurologic: + headache(s); no localized weakness, no tingling, no numbness, no seizure-like activity (none since admission ), no abnormal speech and no confusion Physical Exam Constitutional: well nourished, cooperative, comfortable and + overweight Eyes: PERRL, conjunctivae normal, anicteric sclerae ENMT: Mouth: + tongue abnormality (evidence of recent tongue bite--anterior and l. lateral) Respiratory: normal respiratory effort, lungs clear to auscultation Cardiovascular: RRR, no murmur, no edema Gastrointestinal (Abdomen): normal bowel sounds, soft, nontender, no hepatosplenomegaly Neurologic: CN's II-XI intact bilaterally Speech / Cognition: normal speech and normal cognition Motor/Sensory: + abnormal movement; no sensory deficit Cranial Nerves: PERRL, normal accommodation, EOM intact bilaterally, normal facial strength, tongue midline, normal hearing, able to elevate shoulders bilaterally, no nystagmus and symmetric palate elevation Coordination: + abnormal bywyhj-ty-uwpl test (very slow, patient loses coordination when asked to speed up) Psychiatric: A+Ox3, euthymic affect Results & Data Results & Data Vital Signs (Past 12 Hours) Vital Signs Temp Pulse Pulse Resp BP BP Pulse Ox 03/26/23 03:34 36.6 C 76 18 108/71 95 03/25/23 22:43 37.1 C 94 H 18 128/92 98 03/25/23 21:58 72 03/25/23 20:00 03/25/23 19:59 37.1 C 83 18 136/88 97 O2 Del Method 03/26/23 03:34 Room Air 03/25/23 22:43 Room Air 03/25/23 21:58 03/25/23 20:00 Room Air 03/25/23 19:59 Room Air
[2023-03-26 08:04] LABS: Basophils # (auto) 0.02 K/uL (0.00-0.20); Basophils % (auto) 0.2 %; Eosinophils # (auto) 0.08 K/uL (0.00-0.50); Eosinophils % (auto) 0.8 %; Hemoglobin 13.9 g/dl (14.0-18.0); Immature Granulocytes # (auto) 0.03 K/uL (0.01-0.20); Immature Granulocytes % (auto) 0.3 %; Lymphocytes # (auto) 1.75 K/uL (1.20-3.40); Lymphocytes % (auto) 17.6 %; Mean Corpuscular Hemoglobin 29.9 pg (25.0-34.0); Mean Corpuscular Hgb Conc 34.8 g/dL (32.0-36.0); Mean Platelet Volume 9.5 fL (9.4-12.4); Monocytes # (auto) 1.04 K/uL (0.11-0.59); Monocytes % (auto) 10.4 %; Neutrophils # (auto) 7.05 K/uL (1.40-6.50); Neutrophils % (auto) 70.7 %; Platelet Count 251 K/uL (130-400); RDW Coefficient of Variation 12.6 % (11.5-14.5); RDW Standard Deviation 39.4 fL (36.4-46.3); Red Blood Count 4.65 M/uL (4.70-6.10); White Blood Count 9.97 K/ul (4.8-10.8)
[2023-03-26 08:13] LABS: BUN Creatinine Ratio 14.7 (10-20); Calcium 9.2 mg/dl (8.6-10.3); Creatinine Clr Calc Pharmacy 156.8 ml/min; Est GFR (African American) 125.7 ml/min; Est GFR (Non-African American) 108.5 ml/min; Magnesium 1.9 mg/dl (1.7-2.4); Potassium 3.5 mmol/L (3.5-5.1)
[2023-03-26] MEDS: ACETAMINOPHEN 325 MG TAB PO PRN (10:02)
[2023-03-26] MEDS: APIXABAN 5 MG TABLET PO SCH ×2 (10:02→19:26)
[2023-03-26] MEDS: levETIRAcetam 250 MG TAB PO SCH ×2 (10:02→19:25)
--- NOTE | 2023-03-26 10:08 | Neurology Consultation ---
Date of Consultation March 26, 2023 Assessment & Plan (1) Seizure: (2) Anaplastic astrocytoma: Plan 47-year-old male with a history of left posterior parietal anaplastic astrocytoma diagnosed in 2019, presenting with a new onset seizure, followed by surgical resection, radiation treatments, and chemotherapy. Patient had been treated with carbamazepine although was clinically stable and discontinued his antiseizure medication just over 1 year ago. He continues to follow periodically with his specialists at [facility], no tumor recurrence. He now presents with a second generalized tonic-clonic seizure, very similar to the first episode, preceded by an aura of flashing colored lights to the periphery of the far right visual field. He did bite the left lateral aspect of his tongue with this episode. He is currently neurologically intact although I do detect a subtle visual field deficit to the far right with confrontation testing. His speech is also somewhat slow although he is not aphasic. He does not have a hemiparesis or hemisensory deficit or sensory neglect syndrome. Patient's recent up-to-date imaging, MRI and CT of the brain did not reveal any evidence of tumor recurrence. There are chronic post treatment changes within the posterior left parietal lobe. There is no midline shift or mass effect. There is a prominent perivascular space within the right lentiform nucleus. Patient was given 2 g loading dose of Keppra during his initial emergency department evaluation. Would continue with Keppra 750 mg twice daily going forward. Does not require an EEG at this time. The patient informs me that he does not drive. He recently moved to the area to live with family. Patient may follow-up in neurology clinic. He will continue to follow with his oncology rep specialist at [facility] as well. History of Present Illness Reason for Consultation: seizure Requesting Physician: Stefano Attending Physician: Az Farias DO History of Present Illness The patient is a 47-year-old right-handed male with a history of of anaplastic astrocytoma within the left posterior parietal lobe diagnosed in 2019 in the context of a new onset seizure that had been preceded by persistent progressive headache for several months. Patient recalls that his initial seizure was characterized by an episode of flashing lights to the far right of the peripheral visual field, followed by loss of awareness/consciousness, and generalized tonic-clonic seizure, associated amnesia. He underwent surgical resection and has received radiation treatments and chemotherapy, follows with neurosurgery and oncology at [facility]. He was treated with carbamazepine for a while but had no further seizures and discontinued this treatment within a year or so. He continues to follow regularly with his specialist at [facility], his imaging has been stable. The patient presented to the emergency department yesterday morning after a witnessed generalized tonic-clonic seizure. He was sitting watching television when he again perceived flashing colored lights in the periphery of his right visual field. He collapsed and had a generalized tonic-clonic seizure at that time, he did bite the left side of his tongue. Patient is amnestic for these events, recalls awakening in the emergency department. He has been taking Eliquis in light of a history of pulmonary embolism diagnosed in 2020 in the context of COVID infection while receiving chemotherapy. A brain MRI was completed yesterday, I independently reviewed these images. No acute process. No mesial temporal sclerosis. Postsurgical changes within the left posterior parietal lobe noted with associated postsurgical change, element of vasogenic edema. No abnormal postcontrast enhancement or evidence of tumor recurrence. No midline shift or mass effect. Currently, the patient complains of a low-grade headache. Allergies Allergy/AdvReac Type Severity Reaction Status Date / Time No Known Allergies Allergy Unverified 03/25/23 14:08 Home Medications Medication Instructions Recorded Confirmed Type apixaban 5 mg tablet 5 mg PO BID 03/25/23 03/25/23 History atorvastatin 10 mg tablet 10 mg PO HS 03/25/23 03/25/23 History Patient History Medical History History of pulmonary embolus (PE) Hyperlipidemia Tonic-clonic seizure Social History Smoking Status: Former smoker Hx Alcohol Use: No Hx Substance Use: No Preferred Language: Cameroonian Communication Ability: Effective Windshield Technician Required: No Beliefs That Will Affect Care: Jew Feels Safe at Home: Yes Review of Systems Constitutional: no fever and no chills Eyes: as per Subjective / HPI; no blind spots and no diplopia Ear, Nose, Mouth, Throat: no hearing loss Respiratory: no cough and no dyspnea Cardiovascular: no chest pain and no palpitations Gastrointestinal: no nausea and no vomiting Genitourinary: no dysuria Musculoskeletal: no back pain, no neck pain and no myalgia Integumentary: no rash and no lesions Neurologic: as per Subjective / HPI and + headache(s); no localized weakness, no loss of sensation, no lack of coordination, no tremor(s) and no abnormal speech Psychiatric: no depression and no anxiety Hematologic / Lymphatic: no easy bleeding and no easy bruising Exam (Neuro) Constitutional: well developed and well nourished; no acute distress Eyes: PERRL and EOM intact bilaterally; + abnormal visual field confrontation (Mild visual field loss to the far right visual field with confrontation mita) and no nystagmus Neurologic: Oriented to:: Person, Place and Time Memory: Short Term Intact and Remote Intact Attention: Span Intact and Concentration Intact Speech Fluency: Slowed; negative Dysarthria or Dysfluency Speech Aphasia: negative Aphasia Fund of Knowledge: Current Events, Past History and Vocabulary Cranial Nerves: Normal III, IV, , V, VII, VIII, IX, X, XI and XII; Abnorm II Motor Strength: Normal Lower Extremities and Normal Upper Extremities Motor Tone: Normal Lower Extremities and Normal Upper Extremities Muscle Bulk/Involuntary Movements: No Involuntary Movements; negative Muscle Atrophy Sensation: Light Touch Intact, Pain/Temperature Intact and Proprioception Intact Coordination: Normal; negative Dysdiadochokinesia, Finger-Nose Abnormal or Heel-Baker Abnormal Deep Tendon Reflexes: Rt Triceps: 2+, Lt Triceps: 2+, Rt Biceps: 2+, Lt Biceps: 2+, Rt Brachioradialis: 2+, Lt Brachioradialis: 2+, Rt Patellar: 2+, Lt Patellar: 2+, Rt Ankle: 2+ and Lt Ankle: 2+ Special Tests: negative Babinski Present Details: Gait not tested, seizure precautions in place Results & Data Vital Signs (Past 12 Hours) Vital Signs Temp Pulse Pulse Resp BP BP Pulse Ox 03/26/23 08:33 70 03/26/23 07:40 36.5 C 77 18 116/72 94 03/26/23 07:22 03/26/23 03:34 36.6 C 76 18 108/71 95 03/25/23 22:43 37.1 C 94 H 18 128/92 98 03/25/23 21:58 72 O2 Del Method 03/26/23 08:33 03/26/23 07:40 Room Air 03/26/23 07:22 Room Air 03/26/23 03:34 Room Air 03/25/23 22:43 Room Air 03/25/23 21:58 Laboratory Results WBC 9.97, hemoglobin 13.9, hematocrit 40.0, platelet count 251, sodium 139, potassium 3.5, BUN 11, creatinine 0.75, glucose 98, calcium 9.2, magnesium 1.9, AST 16, ALT 22 Diagnostic Findings Brain MRI is as described in the HPI. Patient also had a CT of the head completed, no hemorrhage or acute process. There is a prominent perivascular space within the right lentiform nucleus. This finding was observed on the above brain MRI as well, there is no associated surrounding gliosis making a chronic lacunar infarct less likely. Electrocardiogram completed March 25, 2023 revealed a normal sinus rhythm, sinus arrhythmia, 73 bpm. Coding Level of Care Code 33894 INT INP/OBS CARE 3/75MIN Diagnoses Seizure R56.9 Anaplastic astrocytoma C71.9 Time Spent (min) 80
--- NOTE | 2023-03-26 16:48 | Billing Data ---
Date of Service March 26, 2023 Coding Level of Care Code 11103 SUB INP/OBS CARE MIN
[2023-03-26] MEDS: ATORVASTATIN 10 MG TAB PO SCH (19:26)
--- NOTE | 2023-03-27 07:01 | Hospitalist Progress Note ---
Date of Service March 27, 2023 Assessment & Plan (1) Seizure: (2) Anaplastic astrocytoma: (3) Tonic-clonic seizure: (4) Palliative care by specialist: Plan (1) Tonic-clonic seizure: Witnessed 8-min tonic-clonic seizure after falling on 03/25/2023 Postictal state in the ED with right eye blurriness, confusion, and memory lapses Hx of anaplastic astrocytoma 2 years ago with resection; patient had previously been on carbamazepine, which was discontinued over a year ago, and patient patient has not experienced a seizure since that time EKG NSR at 73 bpm; QTc 434 Patient received 2 mg Ativan and 2000 mg loading dose of Keppra in the ED No leukocytosis; afebrile; COVID, flu, RSV negative Glucose WNL at 128 on arrival, Elevated anion gap at 16 Seizure precautions, Pad railing on the bed, Fall precautions Neurochecks, daily; Continuous telemetry monitoring Ativan 2mg IV q5m as needed for seizures x 3 max doses Keppra 750 mg p.o. BID while inpatient, continue as recommended by Neurology Neurology was consulted, recommendations as stated above CT-Brain, MRI-brain: consistent w/ left parietal lobe encephalomalacia, chronic lacunar infarct noted in r. lentiform nucleus CBC, BMP, mag AM labs Neurosurgery at [facility] contacted and awaiting their input (2) Anaplastic astrocytoma: Grade 3 S/p resection, chemo, and radiation in 2020 Initial dx in February 2020 after a GTC seizure Patient saw [facility] neurosurgery (Dr. Jamison) in February 2023 with repeat MRI with no new findings Brain MRI: consistent w/ left parietal lobe encephalomalacia, chronic lacunar infarct noted in r. lentiform nucleus (3) Palliative care by specialist: Established care with [facility] palliative care medicine in February 2023 (4) Hyperlipidemia: Continue atorvastatin (5) History of pulmonary embolus (PE): Hx of saddle PE in 2020 while undergoing chemotherapy, while still with cancer and w/ COVID+ Dx at the time) Fam hx of PEs Continue apixaban Disposition: Admit to PCU telemetry Code status: Full code FEN/GI: Keep n.p.o. for now until patient becomes more oriented, then advance to regular diet as tolerated VTE PPx: On Eliquis Admission and Anticipated Discharge Date Admission Date: March 25, 2023 Supervising Physician Co-Signing Physician Notes I personally examined the patient and verified all torres points of history and exam, discussed case, and agree with decision making with Dr Butcher feels good. d/w pt and family in depth. vitals noted nad heent nc at mmm breathing unlabored no accessory muscles good effort skin no rashes no pallor or icterus seizure - keppra. neuro eval -> low likelihood of anything beyond scar tissue. pt/family would much prefer we close the loop with his neurosurgeon at [facility] as well -> he is not airways control specialist this weekend; given the value of peace of mind particularly given such a delicate and concerning situation - will watch into tuesday, push images to [facility] (done today), contact neurosurgeon tomorrow to get his input - then as long as no further testing/w/u warranted by neurosurgeon - then home tomorrow otherwise as above Subjective Talib is a 47-year-old male with PMHx of anaplastic astrocytoma and tonic- clonic seizures. He presented via EMS for an 8-10 minute generalized tonic- clonic seizure on 03/25/2023. Seizure was witnessed by the patient's tuhesk-kc-byk (Betty), who was at bedside and provided most of history. Uxyjwo-ew-dni reported that it was normal morning, patient had just awoken, grabbed coffee, sat down to watch TV, fell from a seated position and began convulsing. Full LOC. Patient reported visual auras and spots just before seizing. [id number] stated he was diaphoretic, cyanotic, and gasping for air; she rolled the patient onto his left side. Patient bit his tongue. No loss of urinary continence, however he had just use the bathroom beforehand. Patient reportedly hit his left forehead on the carpet just before seizing. Postictal state and amnesia following the event. Patient on Eliquis for history of a saddle PE in 2020 while undergoing chemotherapy and temporarily COVID+. He was previously on carbamazepine 300 mg, but was taken off of all seizure medications just over a year ago as he had not had any seizures in a couple years. No recent injuries/trauma to the head or neck. No slurred speech or unilateral deficits prior to event. 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 Patient denies recent smoking, tobacco use. Endorses mild social alcohol use. Patient lives with his brother/POA, Reid Gomez, who is also our [facility] freedom of information officer. Vitals stable at time of admission. This morning patient is feeling much better on this second day, post-seizure. Decreased headache, feels more alert, cognitive status closer to baseline, talking at more normal, conversational pace. Patient performing exam, following commands of exam at faster pace compared to yesterday; does not need anything repeated. Patient feels almost back to baseline and would be amenable to discharge when it's felt that he's medically ready. ED course: Ativan 2 mg injection Keppra 2000 mg IV Review of Systems Constitutional: + fatigue; no fever and no chills Eyes: no diplopia, no eye pain, not seeing flashes (has not seen colored spots in peripheral vision since yesterday's seizure) and no worsening vision Ear, Nose, Mouth, Throat: + dizziness; no ear pain, no sore throat , no dysphagia and no pain with swallowing Respiratory: no cough and no dyspnea Cardiovascular: no chest pain and no palpitations Gastrointestinal: no abdominal pain, no nausea, no vomiting, no constipation and no diarrhea/loose stools Genitourinary: no difficulty urinating or no urinary hesitancy (patient has appt w urology for Sx of BPH) Musculoskeletal: no myalgia Neurologic: no localized weakness, no tingling, no numbness, no seizure-like activity (none since admission ), no abnormal speech and no confusion Physical Exam Constitutional: well nourished, + obese, cooperative, comfortable and + overweight ENMT: Mouth: + tongue abnormality (evidence of recent tongue bite--anterior and l. lateral) Respiratory: normal respiratory effort, lungs clear to auscultation Cardiovascular: RRR, no murmur, no edema Gastrointestinal (Abdomen): normal bowel sounds, soft, nontender, no hepatosplenomegaly Neurologic: CN's II-XI intact bilaterally Speech / Cognition: normal speech and normal cognition Motor/Sensory: + abnormal movement; no sensory deficit Cranial Nerves: PERRL, normal accommodation, EOM intact bilaterally, normal facial strength, tongue midline, normal hearing, able to elevate shoulders bilaterally, no nystagmus and symmetric palate elevation Coordination: normal [id number] test and normal [id number]-jp-[id number] test Psychiatric: A+Ox3, euthymic affect Results & Data Results & Data Vital Signs (Past 12 Hours) Vital Signs Temp Pulse Pulse Resp BP BP Pulse Ox 03/27/23 03:11 36.7 C 56 L 18 103/69 96 03/26/23 23:34 58 L 03/26/23 22:15 36.7 C 54 L 18 108/70 96 03/26/23 19:14 36.8 C 60 18 110/72 97 O2 Del Method 03/27/23 03:11 Room Air 03/26/23 23:34 03/26/23 22:15 Room Air 03/26/23 19:14 Room Air Resident Activity Tracking Resident Involvement: Resident Care Provided Care Provided: Adult Hospital Medicine
[2023-03-27] MEDS: APIXABAN 5 MG TABLET PO SCH ×2 (07:37→19:53)
[2023-03-27] MEDS: levETIRAcetam 250 MG TAB PO SCH ×2 (07:37→19:53)
[2023-03-27 07:42] LABS: Basophils # (auto) 0.04 K/uL (0.00-0.20); Basophils % (auto) 0.6 %; Eosinophils # (auto) 0.18 K/uL (0.00-0.50); Eosinophils % (auto) 2.7 %; Hemoglobin 13.9 g/dl (14.0-18.0); Immature Granulocytes # (auto) 0.02 K/uL (0.01-0.20); Immature Granulocytes % (auto) 0.3 %; Lymphocytes # (auto) 2.62 K/uL (1.20-3.40); Lymphocytes % (auto) 39.9 %; Mean Corpuscular Hgb Conc 34.8 g/dL (32.0-36.0); Mean Corpuscular Volume 86.4 fL (80.0-100.0); Mean Platelet Volume 9.6 fL (9.4-12.4); Monocytes # (auto) 0.79 K/uL (0.11-0.59); Neutrophils # (auto) 2.91 K/uL (1.40-6.50); Neutrophils % (auto) 44.5 %; Platelet Count 243 K/uL (130-400); RDW Coefficient of Variation 12.8 % (11.5-14.5); RDW Standard Deviation 40.2 fL (36.4-46.3); Red Blood Count 4.63 M/uL (4.70-6.10); White Blood Count 6.56 K/ul (4.8-10.8)
[2023-03-27 07:51] LABS: BUN Creatinine Ratio 17.1 (10-20); Calcium 9.4 mg/dl (8.6-10.3); Creatinine Clr Calc Pharmacy 142.7 ml/min; Est GFR (African American) 121.2 ml/min; Est GFR (Non-African American) 104.6 ml/min; Potassium 4.1 mmol/L (3.5-5.1)
--- NOTE | 2023-03-27 18:43 | Billing Data ---
Date of Service March 27, 2023 Coding Level of Care Code 40807 SUB INP/OBS CARE
[2023-03-27] MEDS: ATORVASTATIN 10 MG TAB PO SCH (19:53)
[2023-03-28 06:57] LABS: Basophils # (auto) 0.04 K/uL (0.00-0.20); Basophils % (auto) 0.6 %; Eosinophils # (auto) 0.19 K/uL (0.00-0.50); Hematocrit (blood only) 42.7 % (42.0-52.0); Hemoglobin 14.8 g/dl (14.0-18.0); Immature Granulocytes # (auto) 0.03 K/uL (0.01-0.20); Immature Granulocytes % (auto) 0.5 %; Lymphocytes # (auto) 2.01 K/uL (1.20-3.40); Lymphocytes % (auto) 31.3 %; Mean Corpuscular Hemoglobin 29.8 pg (25.0-34.0); Mean Corpuscular Hgb Conc 34.7 g/dL (32.0-36.0); Mean Corpuscular Volume 86.1 fL (80.0-100.0); Monocytes # (auto) 0.66 K/uL (0.11-0.59); Monocytes % (auto) 10.3 %; Neutrophils % (auto) 54.3 %; Platelet Count 248 K/uL (130-400); RDW Coefficient of Variation 12.6 % (11.5-14.5); RDW Standard Deviation 39.8 fL (36.4-46.3); Red Blood Count 4.96 M/uL (4.70-6.10); White Blood Count 6.43 K/ul (4.8-10.8)
[2023-03-28 07:20] LABS: BUN Creatinine Ratio 17.6 (10-20); Calcium 9.7 mg/dl (8.6-10.3); Creatinine Clr Calc Pharmacy 137.1 ml/min; Est GFR (African American) 119.4 ml/min; Potassium 4.2 mmol/L (3.5-5.1)
[2023-03-28] MEDS: levETIRAcetam 250 MG TAB PO SCH (07:59)
[2023-03-28] MEDS: APIXABAN 5 MG TABLET PO SCH (07:59)
--- NOTE | 2023-03-28 08:21 | Hospitalist Progress Note ---
Date of Service March 28, 2023 Assessment & Plan (1) Seizure: (2) Anaplastic astrocytoma: (3) Tonic-clonic seizure: (4) Palliative care by specialist: Plan (1) Tonic-clonic seizure: Witnessed 8-min tonic-clonic seizure after falling on 03/25/2023 Postictal state in the ED with right eye blurriness, confusion, and memory lapses Hx of anaplastic astrocytoma 2 years ago with resection; patient had previously been on carbamazepine, which was discontinued over a year ago, and patient patient has not experienced a seizure since that time EKG NSR at 73 bpm; QTc 434 Patient received 2 mg Ativan and 2000 mg loading dose of Keppra in the ED No leukocytosis; afebrile; COVID, flu, RSV negative Glucose WNL at 128 on arrival, Elevated anion gap at 16 Seizure precautions, Pad railing on the bed, Fall precautions Neurochecks, daily; Continuous telemetry monitoring Ativan 2mg IV q5m as needed for seizures x 3 max doses Keppra 750 mg p.o. BID while inpatient, continue as recommended by Neurology Neurology was consulted, recommendations as stated above CT-Brain, MRI-brain: consistent w/ left parietal lobe encephalomalacia, chronic lacunar infarct noted in r. lentiform nucleus CBC, BMP, mag AM labs Neurosurgery at [facility] contacted and awaiting their input (2) Anaplastic astrocytoma: Grade 3 S/p resection, chemo, and radiation in 2020 Initial dx in February 2020 after a GTC seizure Patient saw [facility] neurosurgery (Dr. Jamison) in February 2023 with repeat MRI with no new findings Brain MRI: consistent w/ left parietal lobe encephalomalacia, chronic lacunar infarct noted in r. lentiform nucleus (3) Palliative care by specialist: Established care with [facility] palliative care medicine in February 2023 (4) Hyperlipidemia: Continue atorvastatin (5) History of pulmonary embolus (PE): Hx of saddle PE in 2020 while undergoing chemotherapy, while still with cancer and w/ COVID+ Dx at the time) Fam hx of PEs Continue apixaban Disposition: Admit to PCU telemetry Code status: Full code FEN/GI: Keep n.p.o. for now until patient becomes more oriented, then advance to regular diet as tolerated VTE PPx: On Eliquis Admission and Anticipated Discharge Date Admission Date: March 25, 2023 Results & Data Results & Data Vital Signs (Past 12 Hours) Vital Signs Temp Pulse Pulse Resp BP Pulse Ox O2 Del Method 03/28/23 07:03 36.4 C L 57 L 17 104/69 95 Room Air 03/28/23 03:21 36.3 C L 62 16 108/73 94 Room Air 03/27/23 23:24 36.7 C 66 18 115/74 96 Room Air 03/27/23 23:18 65
--- NOTE | 2023-03-28 14:30 | Discharge Summary ---
Date of Service March 28, 2023 Admission HPI Per Admitting Provider Talib is a 47-year-old male with PMH of anaplastic astrocytoma and tonic- clonic seizures. He presented via EMS for an 8-10 minute generalized tonic- clonic seizure on 03/25/2023. Seizure was witnessed by the patient's [id number] (Betty), who is at the bedside and provides most of the history. Medxdi-sc-djt reports that it was a normal morning, and that the patient had just awoken, grabbed coffee, and was sitting down to watch TV, and he fell from a seated position and began convulsing. Full LOC. Patient reported visual auras and spots just before seizing. According to [id number]-nz-[id number], he was diaphoretic, cyanotic, and gasping for air, and the [id number]-[id number] rolled the patient onto his left side. Patient bit his tongue. No loss of urinary continence, however he had just use the bathroom beforehand. Patient reportedly hit his left forehead on the carpet just before seizing. Postictal state and amnesia following the event. Patient is on Eliquis for history of a saddle PE in 2020 while undergoing chemotherapy (likely secondary to COVID at the time). [id number] reports that he did not take his regular medication this morning, and that there have been no recent changes in medicine. He was previously on carbamazepine 300 mg, but was taken off of all seizure medications just over a year ago as he had not had any seizures in a couple years. No recent injuries/trauma to the head or neck. No slurred speech or unilateral deficits prior to event. 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 Patient denies recent smoking, tobacco use. Endorses mild social alcohol use. Patient lives with his brother/POA, Reid Gomez, who is also our [facility] courtroom deputy. Vital stable at time of admission. ED course: Ativan 2 mg injection Keppra 2000 mg IV Unable to obtain ROS given patient's current postictal state Admission Exam Per Admitting Provider General: no acute distress; lethargic; dazed; non-toxic appearing; well- nourished; cooperative HEENT: Superficial, erythematous, brush burn on the left forehead; no scleral icterus; PERRLA w/ EOMs intact; moist mucus membrane; dried blood surrounding the tongue; vision and hearing intact; negative hemotympanum b/l Neck: supple; no lymphadenopathy; trachea midline Skin: warm, dry without signs of tenting; no cyanosis; no rashes, bruising, lesions, or erythema noted CV: chest wall NTP; RRR; S1/S2 normal; no murmurs/rubs/gallops; pulses intact and symmetric at radial, DP, and PT Lungs: no acute respiratory distress; symmetrical chest wall expansion; clear breath sounds across all lung wade w/o adventitious sounds; no wheezing ABD: Soft, NTP; BS present; no rebound/guarding; no distention MSK: no tics or fasciculations; no edema noted in the LEs b/l, nonerythematous; 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 Skin: warm, dry, intact HEENT: NC/AT, anicteric sclera, conjunctiva without injection, moist mucus membranes Heart: +S1/S2, regular, no m/r/g Lungs: equal air entry bilaterally, no rales/rhonchi/wheezes Abd: +BS, soft, NT/ND Ext: warm, no clubbing/cyanosis or edema Neuro: nonfocal, speech intact, no facial droop, moving all extremities on command. Discharge Data Allergies Allergy/AdvReac Type Severity Reaction Status Date / Time No Known Allergies Allergy Unverified 03/25/23 14:08 Consultations 03/25/23 11:21 ED Decision to Admit Stat 03/25/23 14:25 Consult Neurology Routine Ordered Studies 03/25/23 09:19 MRI Brain [MR brain wo/w con] Stat 03/25/23 10:46 CT head/brain wo con Stat Hospital Course (1) Seizure: (2) Anaplastic astrocytoma: (3) Tonic-clonic seizure: (4) Palliative care by specialist: Plan (1) Tonic-clonic seizure: Witnessed 8-min tonic-clonic seizure after falling on 03/25/2023 Postictal state in the ED with right eye blurriness, confusion, and memory lapses Hx of anaplastic astrocytoma 2 years ago with resection; patient had previously been on carbamazepine, which was discontinued over a year ago, and patient patient has not experienced a seizure since that time EKG NSR at 73 bpm; QTc 434 Patient received 2 mg Ativan and 2000 mg loading dose of Keppra in the ED No leukocytosis; afebrile; COVID, flu, RSV negative Glucose WNL at 128 on arrival, Elevated anion gap at 16 Seizure precautions, Pad railing on the bed, Fall precautions Neurochecks, daily; Continuous telemetry monitoring Ativan 2mg IV q5m as needed for seizures x 3 max doses Lacosamide 50mg BID Repeat MRI brain w/wo contrast in 8 weeks Neurology was consulted, recommendations as stated above CT-Brain, MRI-brain: consistent w/ left parietal lobe encephalomalacia, chronic lacunar infarct noted in r. lentiform nucleus CBC, BMP, mag AM labs Neurosurgery at [facility] contacted and awaiting their input (2) Anaplastic astrocytoma: Grade 3 S/p resection, chemo, and radiation in 2020 Initial dx in February 2020 after a GTC seizure Patient saw [facility] neurosurgery (Dr. Jamison) in February 2023 with repeat MRI with no new findings Brain MRI: consistent w/ left parietal lobe encephalomalacia, chronic lacunar infarct noted in r. lentiform nucleus (3) Palliative care by specialist: Established care with [facility] palliative care medicine in February 2023 (4) Hyperlipidemia: Continue atorvastatin (5) History of pulmonary embolus (PE): Hx of saddle PE in 2020 while undergoing chemotherapy, while still with cancer and w/ COVID+ Dx at the time) Fam hx of PEs Continue apixaban Disposition: Admit to PCU telemetry Code status: Full code FEN/GI: Keep n.p.o. for now until patient becomes more oriented, then advance to regular diet as tolerated VTE PPx: On Eliquis Total Time Total Time Spent Total Time Spent (In Minutes): see attending attestation Discharge Plan Discharge Items Patient Disposition: Home - Self-Care Reason For Visit: SEIZURE Discharge Diagnosis: Seizure Activity: Resume your previous activity Non-emergency contact: Primary Care Provider and Neurologist Call non-emergency contact if: you have any medication questions and your symptoms worsen Follow-up/Referrals: Amari Ayon DO [Resident] - 04/04/23 7:45 am () Diet: Regular Addtl Attending Provider Instructions: You were admitted to the hospital for seizures. You were treated with anti- seizure medications and monitored to be sure you did not have any more seizures. We talked to your neurosurgeon in [place] who made recommendations for medication management. Neurosurgery also recommended a follow up MRI in 8 weeks. A discharge summary will be sent to your primary care physician to ensure continuity of care. Please bring this discharge summary with you to your next office appointment so that your provider can review it at that time. Medications: Your medication list has been reviewed and reconciled upon discharge to ensure accuracy and continuity of care. An updated list of all your medications is included with your hospital discharge paperwork. Please review this list closely and make note of any changes to your medications. Lacosamide (Vimpat) 50mg twice daily Follow up appointments: - Make a follow up appointment with your PCP within the next week. It is very important that you follow up with them shortly after discharge from the hospital. - Keep all of your follow up appointments as already scheduled. If you cannot make an appointment, notify your provider. CONTACT YOUR PRIMARY CARE PROVIDER if you experience any of the following: -any further seizure-like activity - Difficulty following your treatment plan - Difficulty taking any of your medications CALL 911 OR GO TO THE EMERGENCY DEPARTMENT if you experience any of the following: - [related to reason for admission] - Sudden, severe abdominal pain or nausea/vomiting - Severe chest pain or chest pain that radiates to your jaw or arm - Sudden, severe shortness of breath or difficulty breathing Pending Studies at Discharge: Yes Studies:: Repeat MRI Brain w/&w/o Stand-Alone Forms: My [facility] [employer] Medications and DC Order Prescriptions: New lacosamide 50 mg tablet 50 mg PO BID 30 Days Qty: 60 0RF Continued atorvastatin 10 mg Tablet 10 mg PO HS apixaban 5 mg Tablet 5 mg PO BID Discharge Orders: Discharge Order (Routine); Ordered 03/28/23 Ordered By: Gilson Fraser Admission Data Admit Date/Time: 03/25/23 12:25 Attending Provider: Marvin Woodit Provider: Jose Manuel Longo Primary Care Provider: Lesley Melgoza Other Providers: Jose Manuel Longo; Silas Monterroso Other Interventions: Discharge Summary Assessment (RN) Last Done: 03/28/23 13:27 Supervising Physician Co-Signing Physician Notes Attending attestation Pt seen and examined in concert with Dr. Fraser. In agreement with the documented findings as noted in the resident documentation with any exceptions or additions as noted here. No acute complaints at this time, no repeat episodes. On examination, S1/S2 nl RRR no MCG. CTAB. Abd NT/ND BS+ve Tonic-clonic seizure w/ h/o anaplastic astrocytoma s/p resection/chemo/radiation - d/w neurosurgery and neurology today - will start Vimpat for prophylaxis and repeat MRI brain as noted. Else see resident documentation as noted. Total attending physician time spent with this patient's care on the day of discharge: 40 minutes.
[2023-03-28] MEDS ORDERED: LACOSAMIDE 50 MG TABLET PO SCH ×2 (21:00)
== END 2023-03-28 14:33 | disposition home or self-care (01) | DRG 101 ==
LOC: ED 08:48 → SUATTDRO 12:25 → EDINP 12:25 → 2S 17:02
DX: Z79.01 Long term (current) use of anticoagulants; G93.89 Other specified disorders of brain; Z92.21 Personal history of antineoplastic chemotherapy; R56.9 Unspecified convulsions; Z79.899 Other long term (current) drug therapy; Z87.891 Personal history of nicotine dependence; E87.20 Acidosis, unspecified; Z86.711 Personal history of pulmonary embolism; Z85.841 Personal history of malignant neoplasm of brain; Z20.822 Contact with and (suspected) exposure to COVID-19; Z86.73 Personal history of transient ischemic attack (TIA), and cerebral infarction without residual deficits; E78.5 Hyperlipidemia, unspecified; Z92.3 Personal history of irradiation

== ENCOUNTER 2023-10-13 15:20 | Inpatient (IN) ==
[2023-10-13] MEDS: OPTIRAY 320 125ml IV ONE (15:38)
--- NOTE | 2023-10-13 15:41 | Emergency Department Note ---
Impression & Plan Acute right-sided muscle weakness, Laceration of face, Fall, Brain mass, Cerebral edema ED Provider Note NAME: MARLEN CARRASCO AGE: 47 SEX: M : 1975 ARRIVES VIA: Walk-In INFORMANT: Patient ED PROVIDER(S): Az Kelsey DO CHIEF COMPLAINT: fall HPI: Patient is a 47-year-old male with a past medical history of anaplastic Desmond sarcoma with previous surgery at [facility] who presented here earlier today for possible seizures. He was discharged. He returns after getting out of the car to go to urinate and he fell to the ground. He did hit his head. He is taking apixaban. Patient complains of a right-sided headache. He denies any change or loss of vision. He notes his right arm and right leg do feel weak. This occurred just prior to arrival. No neck pain. No chest pain or shortness of breath. No dizziness or lightheadedness. ADDITIONAL HISTORY OBTAINED: Per HPI Chronic Medical/Social Conditions Affecting Care: Per HPI PAST MEDICAL HISTORY:See Below PAST SURGICAL HISTORY:See Below FAMILY HISTORY:See Below SOCIAL HISTORY:See Below HOME MEDICATIONS:See Below ALLERGIES:See Below VITALS:See Below PHYSICAL EXAMINATION: GENERAL: Sitting up in bed, alert, well appearing, well nourished, no distress, non-toxic HEAD: Contusion below right eyebrow with a small laceration 2 cm in length EYE EXAM: normal conjunctiva. PERRL and EOM's grossly intact. OROPHARYNX: no exudate, no erythema, lips, buccal mucosa, and tongue normal and mucous membranes are moist NECK: supple, no nuchal rigidity, no adenopathy, non-tender LUNGS: Clear to auscultation. Normal chest wall mechanics HEART: no murmurs, S1 normal and S2 normal ABDOMEN: abdomen soft, non-tender, normo-active bowel sounds, no masses, no rebound or guarding. UPPER EXTREMITIES: upper extremities are grossly normal. LOWER EXTREMITIES: No pitting edema. NEURO EXAM: Normal sensorium, cranial nerves II-XII intact, normal speech, weakness with grasp as well as flexion extension in the right upper extremity 4 out of 5. Right lower extremity was also weak 4 out of 5 with flexion extension of the right hip knee and ankle. No weakness throughout the left upper or left lower extremity. MEDICAL DECISION MAKING: Patient is a 47-year-old male who follows with [facility] neurosurgery and heme-onc who presents to the ER for his second visit today following having sudden onset of right upper and right lower extremity weakness. He did not pass out per the brother who is present at bedside. IV was established blood work was obtained. Trauma alert was called in triage due to the mechanism and the blood thinner. Upon my evaluation with the right-sided weakness a stroke alert was called. He is not a TNK candidate with the previous brain mass and apixaban but felt it was prudent to take him over as the weakness appears to have started before the fall. Labs show no significant leukocytosis or anemia. INR unremarkable. BMP low with LFTs bilirubin and troponin was negative. CT angios of the head neck and face show a new brain mass with vasogenic edema. This was reviewed and evaluated by [facility]. They recommended holding the blood thinner and did not believe that he need to be transferred down and could be managed here but recommended talking with neurosurgery after I requested. Spoke with neurosurgeon Dr. Hewitt following speaking with neurology Dr. Calderón. Dr. Hewitt after reviewing the images which were transferred down he offered to except the patient but if the patient preferred to stay at [facility] he felt that was very reasonable as the patient needs an MRI with and without high resolution and needs to be started on a Decadron taper of 4 mg every 6 x 24 hours, 3 mg 3 times daily x 26 hours, 2 mg 3 times daily x 24 hours and 2 mg twice daily. This was his recommended steroid taper following patient receiving Decadron 8 mg IV x 1 here in the ER. Patient already received 2 g of Keppra earlier today. Discussed with the patient and brother at bedside. He would prefer to stay here. Discussed with the hospitalist they were agreeable for admission. Her she would like to review the MRI once finished and that we will need to be transferred electronically for them and discussed with them. They will give any additional recommendations for steroids at that time if needed and any additional treatments. Again after discussion with neurosurgery they do not feel there is any added benefit to transferring to [facility] at this time and both patient and brother would prefer to stay here. Consults/Care Managements Discussions: Per MDM Triage Nursing notes reviewed. Limited review of prior medical records performed Vital Signs: reviewed and remarkable for no significant abnormalities Differential diagnosis: Differential Diagnosis includes but is not limited to ischemic Stroke, hemorrhagic stroke, bells palsy, mass, neoplasm, migraine headache, seizure, subarachnoid hemorrhage, TIA, and transient global amnesia. ER treatment provided: See below Diagnostics interpreted by me include EKG and cardiac monitoring as listed below: -Cardiac Monitoring: An order was placed for continuous cardiac monitoring. The monitor shows a rate of 60 with sinus rhythm. -ECG: Sinus rhythm rate 89 Normal axis No PVCs QTc 486 -Laboratory studies:Interpreted by me as stated above in MDM and shown below. Imaging studies: Xrays: As interpreted by me: Portable AP upright 1 view of the chest shows no focal M-Trate CTs show: CT images of the head and neck and face as described above showed recurrence of the mass with vasogenic edema Procedures: None Critical Care: I have personally spent 35 minutes of critical care time in the direct management of this patient. This includes bedside care, interpretation of diagnostic studies, and testing, discussion with consultants, patient, and family members, and other required patient management activities. This 35 minutes is in excess of all separately billable procedures. 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 treated at [facility] [place]. follows with Neurology at [facility] [place]. Hyperlipidemia no current medications Medical History (Updated 10/13/23 @ 19:17 by Az Kelsey DO) On anticoagulant therapy managed by pcp History of pulmonary embolus (PE) 2020 during chemotherapy and radiation treatments. no problems since starting anticoagulants. Tonic-clonic seizure last seizure was 03/25/23 (treated inpatient at [facility]) after having his seizure medication discontinued at the time. no problems since restarting medication. Surgical History History of carpal tunnel release bilateral S/P excision of lipoma History of craniotomy to resection brain tumor in 03/2020 at [facility] [place]. 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: No Beliefs That Will Affect Care: None Current Living Situation: Family Current Living Situation Comment: lives with brother Reid and sister in [place] Feels Safe at Home: Yes Assistive Devices: Glasses Allergies Allergies Allergy/AdvReac Type Severity Reaction Status Date / Time No Known Allergies Allergy Verified 10/13/23 16:16 Home Meds Home Medications Medication Instructions Recorded Confirmed apixaban 5 mg tablet 5 mg PO AMHS 03/25/23 10/13/23 Medical Thc 1 dose PO UD PRN Anxiety 04/12/23 10/13/23 multivitamin 1 tab PO QAM 04/12/23 10/13/23 atorvastatin 10 mg tablet 10 mg PO QAM 06/16/23 10/13/23 tamsulosin 0.4 mg capsule (Flomax) 0.4 mg PO QAM 06/16/23 10/13/23 divalproex 500 mg tablet,delayed 500 mg PO UD 10/13/23 10/13/23 release Previous Rx's Medication Instructions Recorded levetiracetam 750 mg tablet 750 mg PO BID #60 tabs 07/20/23 (Keppra) levetiracetam 1,000 mg tablet 1,000 mg PO BID #60 tabs 09/16/23 (Keppra) Results & Data (ED) Vital Signs Vital Signs - 24 hr 10/13/23 15:22 10/13/23 15:35 10/13/23 15:49 Temperature 36.4 C L Pulse Rate 61 66 90 Pulse Rate [Apical] Pulse Rhythm Regular Pulse Strength Normal Respiratory Rate 20 18 Respiratory Effort / Characteristics Non-Labored Spontaneous Respiratory Depth Normal Respiratory Pattern Regular Blood Pressure 157/73 H 171/114 H Blood Pressure [Right Arm] Blood Pressure Mean 101 Blood Pressure Mean [Right Arm] Blood Pressure Position Sitting Pulse Oximetry 95 95 Oxygen Delivery Method Room Air Room Air Sepsis Recent Fever Within 48 Hours No Sepsis New/Unexplained Change in Mental Status No Sepsis Action Taken by Nursing No Action Required 10/13/23 15:52 10/13/23 15:52 10/13/23 16:29 Temperature Pulse Rate Pulse Rate [Apical] 51 L 97 H Pulse Rhythm Pulse Strength Respiratory Rate 19 20 Respiratory Effort / Characteristics Respiratory Depth Respiratory Pattern Blood Pressure Blood Pressure [Right Arm] 150/92 H 118/66 Blood Pressure Mean Blood Pressure Mean [Right Arm] 111 83 Blood Pressure Position Pulse Oximetry 96 98 Oxygen Delivery Method Room Air Room Air Room Air Sepsis Recent Fever Within 48 Hours Sepsis New/Unexplained Change in Mental Status Sepsis Action Taken by Nursing 10/13/23 17:00 10/13/23 18:00 Temperature Pulse Rate Pulse Rate [Apical] 49 L 55 L Pulse Rhythm Pulse Strength Respiratory Rate 16 18 Respiratory Effort / Characteristics Respiratory Depth Respiratory Pattern Blood Pressure Blood Pressure [Right Arm] 118/66 127/78 Blood Pressure Mean Blood Pressure Mean [Right Arm] 83 94 Blood Pressure Position Pulse Oximetry 95 95 Oxygen Delivery Method Room Air Room Air Sepsis Recent Fever Within 48 Hours Sepsis New/Unexplained Change in Mental Status Sepsis Action Taken by Nursing Laboratory Data 10/13/23 15:35 10/13/23 15:35 Lab Results 10/13/23 10/13/23 Range/Units 15:35 15:40 WBC 9.65 (4.8-10.8) K/ul RBC 5.03 (4.70-6.10) M/uL Hgb 14.8 (14.0-18.0) g/dl POC Hgb 14.6 (14.0-18.0) g/dl Hct 44.9 (42.0-52.0) % POC Hct 43 (42-52) % MCV 89.3 (80.0-100.0) fL MCH 29.4 (25.0-34.0) pg MCHC 33.0 (32.0-36.0) g/dL RDW Std Deviation 42.5 (36.4-46.3) fL RDW Coeff of Aj 13.0 (11.5-14.5) % Plt Count 270 (130-400) K/uL MPV 9.6 (9.4-12.4) fL Immature Gran % (Auto) 0.3 % Neut % (Auto) 49.2 % Lymph % (Auto) 38.5 % [place] % (Auto) 9.4 % Eos % (Auto) 2.1 % Baso % (Auto) 0.5 % Neut # (Auto) 4.74 (1.40-6.50) K/uL Lymph # (Auto) 3.72 H (1.20-3.40) K/uL [place] # (Auto) 0.91 H (0.11-0.59) K/uL Eos # (Auto) 0.20 (0.00-0.50) K/uL Baso # (Auto) 0.05 (0.00-0.20) K/uL Immature Gran # (Auto) 0.03 (0.01-0.20) K/uL PT 11.1 (9.0-12.0) Seconds INR 1.0 (0.9-1.1) APTT 24 (21-31) Seconds PTT Ratio 0.9 POC Sodium 140 (135-144) mmol/L Sodium 139 (136-145) mmol/L POC Potassium 3.4 (3.3-5.0) mmol/L Potassium 3.5 (3.5-5.1) mmol/L POC Chloride 102 (101-112) mmol/L Chloride 103 (98-107) mmol/L Carbon Dioxide 28 (21-32) mmol/L POC Total CO2 26 (24-31) mmol/L Anion Gap 8 (3-11) POC Anion Gap 15.0 L (16-25) mmol/L POC BUN 14 (7-18) mg/dl BUN 16 (6-23) mg/dl Creatinine 0.65 (0.6-1.4) mg/dl POC Creatinine 0.8 (0.6-1.3) mg/dl Est Cr Clr Drug Dosing 177.2 ml/min Est GFR ( Amer) 133.3 ml/min Est GFR (Non-Af Amer) 115.0 ml/min BUN/Creatinine Ratio 24.6 H (10-20) Glucose 110 H (70-99(Fasting)) mg/dl POC Glucose (other) 105 H (70-99) mg/dl Estimat Average Glucose 111 mg/dl Hemoglobin A1c 5.5 (4.5-5.6) % Calcium 9.5 (8.6-10.3) mg/dl POC Ioniz Calcium Jignesh 1.19 (1.12-1.32) mmol/l Magnesium 1.7 (1.7-2.4) mg/dl Total Bilirubin 0.8 (0.2-1.0) mg/dl AST 17 (13-39) U/L ALT 21 (7-52) U/L Alkaline Phosphatase 44 (34-104) U/L Troponin I High Sens < 2.3 (0-20) pg/ml Total Protein 6.9 (6.0-8.3) gm/dl Albumin 4.4 (3.4-5.0) gm/dl Globulin 2.5 (2.5-4.0) gm/dl Albumin/Globulin Ratio 1.8 (0.9-2) Administered Medications Discontinued Medications Dexamethasone Sodium Phosphate (DexamethasonePf 10 Mg/Ml Vial) 8 mg IV NOW ONE Stop: 10/13/23 16:46 Last Admin: 10/13/23 16:56 Dose: 8 mg Documented By: SCOTT Ioversol (Optiray 320 125ml) 119 ml IV ONCE ONE Stop: 10/13/23 15:38 Last Admin: 10/13/23 15:38 Dose: 119 ml Documented By: ALYSA Lidocaine (Lidocaine/Epineph/Tetracaine 1 Ea Syr) 1 each EXT NOW STA Stop: 10/13/23 17:57 Last Admin: 10/13/23 18:34 Dose: Not Given Documented By: BRODIE Ondansetron HCl (Ondansetron Inj 2 Mg/Ml 2 Ml Vial) 4 mg IV NOW STA Stop: 10/13/23 15:47 Last Admin: 10/13/23 15:51 Dose: 4 mg Documented By: BRODIE Imaging Data Radiologist's Impression: Chest X-Ray 10/13/23 15:33 SINGLE VIEW CHEST CLINICAL HISTORY: Neurologic deficit. Stroke like symptoms. FINDINGS: An AP, portable, upright chest radiograph is obtained. No prior studies are available for comparison at the time of dictation. The cardiomediastinal silhouette is unremarkable. The lungs and pleural spaces are clear. No pneumothorax is seen. The bony thorax is grossly intact. IMPRESSION: No active disease in the chest. ACT 112: Negative or not required by law. Electronically signed by: Milad Rouse M.D. 10/13/2023 4:[address] 10/13/23 15:33 CT facial bones wo con CLINICAL HISTORY: fall hit faceeight sided weak TECHNIQUE: Multidetector row helical CT of the maxillofacial bones was performed without administration of intravenous contrast, and processed with bone and soft tissue algorithms. Coronal and sagittal reformations were obtained. Automated dose lowering techniques and/or adjustment according to patient size were utilized for this exam. Comparison: None available at the time of this dictation. FINDINGS: Nasal bones are normal. The mandible is intact. The temporomandibular joints are anatomically aligned. Pterygoid plates are intact. Zygomatic arches are intact. The globes are normal and symmetric, without proptosis, obvious disruption or lens dislocation. Soft tissue swelling is seen in the right periorbital region with some radiodensities noted. The orbital nuno are intact. The retrobulbar fat is without evidence of disruption. Extraocular muscles are normal and symmetric. Optic nerve sheath complexes are normal in course and caliber. Imaged portions of the paranasal sinuses and mastoid air cells are clear. IMPRESSION: Right periorbital soft tissue swelling is seen with some radiodensities which may represent foreign bodies. No evidence of acute fracture. ACT 112: Negative or not required by law. Electronically signed by: Jayce Joya M.D. 10/13/2023 3:[address] 10/13/23 15:33 CT OF THE HEAD WITHOUT CONTRAST CLINICAL HISTORY: neuro deficit, acute stroke suspected COMPARISON STUDY: Head CT and MRI of the brain March 25, 2023. MRI of the brain September 22, 2023. TECHNIQUE: Helical axial images of the head were obtained without IV contrast. Automated exposure control was utilized for the study. A dose lowering technique was utilized adhering to the principles of ALARA. FINDINGS: No acute intracranial hemorrhage is present. There are postoperative findings consistent with left parietal craniotomy. Left parietal volume loss was shown on prior exam. There is an adjacent left parietal 3.9 cm abnormality. This is centrally hypodense with peripheral hyperdensity. This has increased when compared to MRI of September 22, 2023. There is mild mass effect with minimal sulcal effacement. Adjacent hypodensity favors vasogenic edema. There is no evidence for herniation. Ventricular system is unremarkable. Basal cisterns are patent. There are no obstructive fluid collections. There are no calvarial fractures. IMPRESSION: 1. No acute intracranial hemorrhage. No CT evidence for acute infarct. 2. Status post left parietal craniotomy with redemonstration of a left parietal resection bed. Increase in an adjacent 3.9 cm abnormality within the left parietal lobe since MRI of September 22, 2023. 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 Adjacent vasogenic edema. ACT 112: Negative or not required by law. Electronically signed by: Aldo Candelaria M.D. 10/13/2023 4:16 PM Head CTA 10/13/23 15:33 CT ANGIOGRAM OF THE BRAIN CLINICAL HISTORY: Neurological deficit. Stroke like symptoms. History of astrocytoma. COMPARISON STUDY: Unenhanced CT of the brain performed concurrently on 10/13/2023. MRI of the brain dated 03/25/2023. TECHNIQUE: Following the IV administration of 118 cc of Optiray 320, CT angiogram of the brain was performed from the skull base to the vertex. Images are reviewed in the axial, sagittal, and coronal planes. 3-D MIPS images are created and assessed. IV contrast was administered without complication. A dose lowering technique was utilized adhering to the principles of ALARA. FINDINGS: Brain parenchyma: There is postsurgical change from left posterior parietal resection. There is a round 3 cm focus showing loss of weston-white matter differentiation in the left posterior parietal lobe on axial image #50 of 81. This does not show discernible postcontrast enhancement. There is no evidence of hemorrhage or midline shift. There is no evidence of acute territorial ischemia noting angiographic phase technique. No extra-axial fluid collection is seen. Ventricles, sulci, and cisterns: Normal in configuration. CT angiogram of the brain: The internal carotid arteries are widely patent, as are the anterior and middle cerebral arteries. The vertebrobasilar system and posterior cerebral arteries are widely patent. The right vertebral artery is dominant. There is a left posterior communicating artery. There is no aneurysm, high-grade stenosis, or focal vessel cutoff identified throughout the intracranial circulation. Dural sinuses: Clear as visualized. Orbits: The bony orbits are intact. The orbital contents are normal as visualized. Sinuses and mastoids: The paranasal sinuses are clear. The mastoid air cells are well pneumatized. Calvarium: There is postsurgical change from left posterior craniotomy. No destructive calvarial lesion is seen. IMPRESSION: 1. There is no evidence of hemorrhage, midline shift, or acute territorial ischemia noting angiographic phase technique. 2. There is postsurgical change from left parietal lobe resection. 3. There is an approximately 3 cm focus showing loss of weston-white matter differentiation in the left posterior parietal lobe in the region of the resection margin. This did not show discernible postcontrast enhancement. Although this could potentially represent a focus of ischemia, the appearance is more suspicious for recurrent/residual neoplasm. A contrast enhanced MRI of the brain is recommended for further assessment. 4. There is no aneurysm, high-grade stenosis or focal vessel cutoff seen throughout the intracranial circulation. ACT 112: Negative or not required by law. Electronically signed by: Milad Rouse M.D. 10/13/2023 4:21 PM Neck CTA 10/13/23 15:33 CT ANGIOGRAPHY OF THE NECK WITH CONTRAST CLINICAL HISTORY: neuro deficit, acute stroke suspected COMPARISON STUDY: None. Technique: CT angiography of the carotid and vertebral arteries was obtained using Optiray and 3D reconstruction on an independent workstation. NASCET criteria was utilized. Automated exposure control was utilized for the study. A dose lowering technique was utilized adhering to the principles of ALARA. CT DOSE: 2177.25 mGy.cm Findings: Visualized portions of the lung apices are unremarkable. Incidental note is made of a 6 x 3.6 cm heterogeneously enhancing right lobe thyroid nodule. There is no cervical lymphadenopathy. No cervical spinal fractures are present. The bilateral common carotid, cervical internal carotid and vertebral arteries are patent. There is no stenosis or dissection within the neck. There is no aneurysm within the neck. IMPRESSION: 1. No abnormalities within the bilateral common carotid, cervical internal carotid or vertebral arteries. 2. An indeterminate 6 x 3.6 cm right lobe thyroid nodule. ACT 112: Negative or not required by law. Electronically signed by: Aldo Candelaria M.D. 10/13/2023 4:23 PM Discharge Plan Visit Data Chief Complaint: Trauma Stated Complaint: SYNOCOPE ED Provider: Az Kelsey Discharge Problem: Acute right-sided muscle weakness, Laceration of face, Fall, Brain mass, Cerebral edema Patient Disposition: Transfer Acute Care Hospital Forms Stand Alone Forms: [facility] Prescriptions Prescriptions: No Action levetiracetam [Keppra] 1,000 mg tablet 1,000 mg PO BID Qty: 60 2RF atorvastatin 10 mg tablet 10 mg PO QAM tamsulosin [Flomax] 0.4 mg capsule 0.4 mg PO QAM levetiracetam [Keppra] 750 mg tablet 750 mg PO BID Qty: 60 3RF Medical Thc 1 dose PO UD PRN (Reason: Anxiety) multivitamin Tablet 1 tab PO QAM apixaban 5 mg Tablet 5 mg PO AMHS divalproex 500 mg tablet,delayed release (DR/EC) 500 mg PO UD Rx Instructions: pt is having trouble remembering dosage and times of taking this med Referrals Referrals: Lesley Melgoza, [Primary Care Provider] - Discharge Problem: Laceration of face Qualifiers: Encounter type: initial encounter Qualified Code(s): S01.81XA - Laceration without foreign body of other part of head, initial encounter Fall Qualifiers: Encounter type: initial encounter Qualified Code(s): W19.XXXA - Unspecified fall, initial encounter
[2023-10-13 15:46] LABS: Basophils # (auto) 0.05 K/uL (0.00-0.20); Basophils % (auto) 0.5 %; Eosinophils % (auto) 2.1 %; Hematocrit (blood only) 44.9 % (42.0-52.0); Hemoglobin 14.8 g/dl (14.0-18.0); Immature Granulocytes # (auto) 0.03 K/uL (0.01-0.20); Immature Granulocytes % (auto) 0.3 %; Lymphocytes # (auto) 3.72 K/uL (1.20-3.40); Lymphocytes % (auto) 38.5 %; Mean Corpuscular Hemoglobin 29.4 pg (25.0-34.0); Mean Corpuscular Volume 89.3 fL (80.0-100.0); Mean Platelet Volume 9.6 fL (9.4-12.4); Monocytes # (auto) 0.91 K/uL (0.11-0.59); Monocytes % (auto) 9.4 %; Neutrophils # (auto) 4.74 K/uL (1.40-6.50); Neutrophils % (auto) 49.2 %; Platelet Count 270 K/uL (130-400); RDW Standard Deviation 42.5 fL (36.4-46.3); Red Blood Count 5.03 M/uL (4.70-6.10); White Blood Count 9.65 K/ul (4.8-10.8)
[2023-10-13] MEDS: ONDANSETRON INJ 2 MG/ML 2 ML VIAL IV STA (15:51)
[2023-10-13 15:53] LABS: iSTAT Creatinine 0.8 mg/dl (0.6-1.3); iSTAT Hemoglobin 14.6 g/dl (14.0-18.0); iSTAT Ionized Calcium 1.19 mmol/l (1.12-1.32); iSTAT Potassium 3.4 mmol/L (3.3-5.0)
[2023-10-13 15:57] LABS: Partial Thromboplastin Ratio 0.9; Partial Thromboplastin Time 24 Seconds (21-31); Prothrombin Time 11.1 Seconds (9.0-12.0)
--- NOTE | 2023-10-13 15:59 | CT Scan Report ---
CT facial bones wo con CLINICAL HISTORY: fall hit faceeight sided weak TECHNIQUE: Multidetector row helical CT of the maxillofacial bones was performed without administrati on of intravenous contrast, and processed with bone and soft tissue algorithms. Coronal and sagittal reformations were obtained. Automated dose lowering techniques and/or adjustment according to patient size were utilized for this exam. Comparison: None available at the time of this dictation. FINDINGS: Nasal bones are normal. The mandible is intact. The temporomandibular joints are anatomically aligned . Pterygoid plates are intact. Zygomatic arches are intact. The globes are normal and symmetric, without proptosis, obvious disruption or lens dislocation. Soft tissue swelling is seen in the right periorbital region with some radiodensities noted. The orbital nuno are intact. The retrobulbar fat is without evidence of disruption. Extraocular muscles are nor mal and symmetric. Optic nerve sheath complexes are normal in course and caliber. Imaged portions of the paranasal sinuses and mastoid air cells are clear. IMPRESSION: Right periorbital soft tissue swelling is seen with some radiodensities which may represent foreign b odies. No evidence of acute fracture. ACT 112: Negative or not required by law. Electronically signed by: Jayec Joya M.D. 10/13/2023 3:57 PM
[2023-10-13 16:07] LABS: Alanine Aminotransferase 21 U/L (7-52); Albumin Globulin Ratio 1.8 (0.9-2); Albumin Level 4.4 gm/dl (3.4-5.0); Alkaline Phosphatase 44 U/L (34-104); Anion Gap 8 (3-11); Aspartate Aminotransferase 17 U/L (13-39); BUN Creatinine Ratio 24.6 (10-20); Bilirubin,Total 0.8 mg/dl (0.2-1.0); Blood Urea Nitrogen 16 mg/dl (6-23); Calcium 9.5 mg/dl (8.6-10.3); Carbon Dioxide 28 mmol/L (21-32); Chloride 103 mmol/L (98-107); Creatinine Clr Calc Pharmacy 177.2 ml/min; Est GFR (African American) 133.3 ml/min; Globulin 2.5 gm/dl (2.5-4.0); Glucose 110 mg/dl (70-99(Fasting)); Magnesium 1.7 mg/dl (1.7-2.4); Potassium 3.5 mmol/L (3.5-5.1); Sodium 139 mmol/L (136-145); Total Protein 6.9 gm/dl (6.0-8.3)
[2023-10-13 16:14] LABS: Troponin I High Sensitivity < 2.3 pg/ml (0-20)
--- NOTE | 2023-10-13 16:17 | CT Scan Report ---
CT OF THE HEAD WITHOUT CONTRAST CLINICAL HISTORY: neuro deficit, acute stroke suspected COMPARISON STUDY: Head CT and MRI of the brain March 25, 2023. MRI of the brain September 22, 2023. TECHNIQUE: Helical axial images of the head were obtained without IV contrast. Automated exposure con trol was utilized for the study. A dose lowering technique was utilized adhering to the principles o f ALARA. FINDINGS: No acute intracranial hemorrhage is present. There are postoperative findings consistent wi th left parietal craniotomy. Left parietal volume loss was shown on prior exam. There is an adjacent left parietal 3.9 cm abnormality. This is centrally hypodense with peripheral hyperdensity. This has increased when compared to MRI of September 22, 2023. There is mild mass effect with minimal sulcal efface ment. Adjacent hypodensity favors vasogenic edema. There is no evidence for herniation. Ventricular s ystem is unremarkable. Basal cisterns are patent. There are no obstructive fluid collections. There a re no calvarial fractures. IMPRESSION: 1. No acute intracranial hemorrhage. No CT evidence for acute infarct. 2. Status post left parietal craniotomy with redemonstration of a left parietal resection bed. Increa se in an adjacent 3.9 cm abnormality within the left parietal lobe since MRI of September 22, 2023. 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 Adjacent vasogenic edema. ACT 112: Negative or not required by law. Electronically signed by: Aldo Candelaria M.D. 10/13/2023 4:16 PM
--- NOTE | 2023-10-13 16:22 | CT Scan Report ---
CT ANGIOGRAM OF THE BRAIN CLINICAL HISTORY: Neurological deficit. Stroke like symptoms. History of astrocytoma. COMPARISON STUDY: Unenhanced CT of the brain performed concurrently on 10/13/2023. MRI of the brain da dillon 03/25/2023. TECHNIQUE: Following the IV administration of 118 cc of Optiray 320, CT angiogram of the brain was pe rformed from the skull base to the vertex. Images are reviewed in the axial, sagittal, and coronal pl anes. 3-D MIPS images are created and assessed. IV contrast was administered without complication. A dose lowering technique was utilized adhering to the principles of ALARA. FINDINGS: Brain parenchyma: There is postsurgical change from left posterior parietal resection. There is a rou nd 3 cm focus showing loss of weston-white matter differentiation in the left posterior parietal lobe o n axial image #50 of 81. This does not show discernible postcontrast enhancement. There is no evidenc e of hemorrhage or midline shift. There is no evidence of acute territorial ischemia noting angiograp hic phase technique. No extra-axial fluid collection is seen. Ventricles, sulci, and cisterns: Normal in configuration. CT angiogram of the brain: The internal carotid arteries are widely patent, as are the anterior and m iddle cerebral arteries. The vertebrobasilar system and posterior cerebral arteries are widely patent . The right vertebral artery is dominant. There is a left posterior communicating artery. There is no aneurysm, high-grade stenosis, or focal vessel cutoff identified throughout the intracranial circula tion. Dural sinuses: Clear as visualized. Orbits: The bony orbits are intact. The orbital contents are normal as visualized. Sinuses and mastoids: The paranasal sinuses are clear. The mastoid air cells are well pneumatized. Calvarium: There is postsurgical change from left posterior craniotomy. No destructive calvarial lesi on is seen. IMPRESSION: 1. There is no evidence of hemorrhage, midline shift, or acute territorial ischemia noting angiograph ic phase technique. 2. There is postsurgical change from left parietal lobe resection. 3. There is an approximately 3 cm focus showing loss of weston-white matter differentiation in the left posterior parietal lobe in the region of the resection margin. This did not show discernible postcon trast enhancement. Although this could potentially represent a focus of ischemia, the appearance is m ore suspicious for recurrent/residual neoplasm. A contrast enhanced MRI of the brain is recommended f or further assessment. 4. There is no aneurysm, high-grade stenosis or focal vessel cutoff seen throughout the intracranial circulation. ACT 112: Negative or not required by law. Electronically signed by: Milad Rouse M.D. 10/13/2023 4:21 PM
--- NOTE | 2023-10-13 16:24 | CT Scan Report ---
CT ANGIOGRAPHY OF THE NECK WITH CONTRAST CLINICAL HISTORY: neuro deficit, acute stroke suspected COMPARISON STUDY: None. Technique: CT angiography of the carotid and vertebral arteries was obtained using Optiray and 3D rec onstruction on an independent workstation. NASCET criteria was utilized. Automated exposure control was utilized for the study. A dose lowering technique was utilized adhering to the principles of ALA RA. CT DOSE: 2177.25 mGy.cm Findings: Visualized portions of the lung apices are unremarkable. Incidental note is made of a 6 x 3 .6 cm heterogeneously enhancing right lobe thyroid nodule. There is no cervical lymphadenopathy. No c ervical spinal fractures are present. The bilateral common carotid, cervical internal carotid and jose tebral arteries are patent. There is no stenosis or dissection within the neck. There is no aneurysm within the neck. IMPRESSION: 1. No abnormalities within the bilateral common carotid, cervical internal carotid or vertebral arter ies. 2. An indeterminate 6 x 3.6 cm right lobe thyroid nodule. ACT 112: Negative or not required by law. Electronically signed by: Aldo Candelaria M.D. 10/13/2023 4:23 PM
--- NOTE | 2023-10-13 16:36 | XRay Report ---
SINGLE VIEW CHEST CLINICAL HISTORY: Neurologic deficit. Stroke like symptoms. FINDINGS: An AP, portable, upright chest radiograph is obtained. No prior studies are available for c omparison at the time of dictation. The cardiomediastinal silhouette is unremarkable. The lungs and p leural spaces are clear. No pneumothorax is seen. The bony thorax is grossly intact. IMPRESSION: No active disease in the chest. ACT 112: Negative or not required by law. Electronically signed by: Milad Rouse M.D. 10/13/2023 4:35 PM
[2023-10-13] MEDS: dexAMETHasone**PF** 10 MG/ML VIAL IV ONE (16:56)
[2023-10-13] MEDS: LIDOCAINE/EPINEPH/TETRACAINE 1 EA SYR EXT STA (18:34)
--- NOTE | 2023-10-13 18:35 | History & Physical Report ---
Date of Service October 13, 2023 Assessment & Plan (1) Anaplastic astrocytoma: Plan: Assessment: 1. 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 With surrounding vasogenic edema. [facility] neurology and neurosurgery were consulted via our ER provider. Recommendations for steroid taper to include Decadron 4 mg IV every 6 hours x 24 hours followed by 3 mg IV every 8 hours x 24 hours followed by 2 mg IV every 8 hours x 24 hours followed by 2 mg IV every 8 hours. Orders have been written as such. He received an additional dose of 8 mg of Decadron IV once in the ER. 2. 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 Seizure precautions ordered. He is on Keppra which was increased from 750 mg twice daily to 1000 mg twice daily today. In addition he is on valproic acid. Will do a valproic acid level. Neurology consulted locally here. The patient is well-known to their office. I spoke personally with them. 3. Multiple skin wounds from his fall. With a small laceration of the right eyebrow region/orbital region. We have consulted wound care nurse. In addition he is got some abrasions on his hands and right shoulder. 4. History of pulmonary embolism on chronic Eliquis therapy. Per the ER provider neurosurgery and neurology is recommending to hold Eliquis at this time. His pulmonary embolism was back in 2020. If the patient is going to be off his anticoagulation therapy it should be entertained for an IVC filter placement for PE protection. This will need to be addressed on day shift to see if this service can be provided locally and if indicated. 5. Dyslipidemia continue statin therapy. 6. History of BPH. 7. CTA of the neck today demonstrated a 6 x 3.6 right thyroid lobe nodule. This needs followed up on an outpatient basis per standard of care with ultrasound. Plan: As described above. Please refer to orders for further planning. History of Present Illness Chief Complaint: Seizure, fall Primary Care Provider: Lesley Melgoza, This is a pleasant 47-year-old gentleman has a known history of a anaplastic astrocytoma. And a history of a seizure disorder. Early in the day had a breakthrough seizure. He presented to the ER. He was treated and discharged to home. On the way home he pulled his car to the side of the road to urinate and had a fall outside his car and was brought in as a trauma alert back to the ER today. Upon representation to the ER the patient had a CT of his brain which was grossly abnormal. Interpreted is status postcraniotomy with redemonstration of left parietal resection bed. 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 We are initially contacted for admission here at [facility]. We recommended making contact with [facility] neurology and neurosurgery. The ER provider made contact with subspecialist there. They are recommending admit to [facility] with a steroid taper. We have consulted local neurology and we spoke with local neurology personally by phone who will see the patient on consultation while here. Allergies Allergy/AdvReac Type Severity Reaction Status Date / Time No Known Allergies Allergy Verified 10/13/23 16:16 Home Medications Medication Instructions Recorded Confirmed Type apixaban 5 mg tablet 5 mg PO AMHS 03/25/23 10/13/23 History Medical Thc 1 dose PO UD PRN Anxiety 04/12/23 10/13/23 History multivitamin 1 tab PO QAM 04/12/23 10/13/23 History atorvastatin 10 mg tablet 10 mg PO QAM 06/16/23 10/13/23 History tamsulosin 0.4 mg capsule (Flomax) 0.4 mg PO QAM 06/16/23 10/13/23 History levetiracetam 750 mg tablet 750 mg PO BID #60 tabs 07/20/23 10/13/23 Rx (Keppra) levetiracetam 1,000 mg tablet 1,000 mg PO BID #60 tabs 09/16/23 10/13/23 Rx (Keppra) divalproex 500 mg tablet,delayed 500 mg PO UD 10/13/23 10/13/23 History release Past Med/Surg History Problem List (Updated 10/13/23 @ 14:02 by Le Ruth MD) Encounter for pre-operative examination Seizure (Acute) Visual changes Fatigue 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 treated at [facility]. follows with Neurology at [facility]. Hyperlipidemia no current medications Medical History (Updated 10/13/23 @ 14:02 by Le Ruth MD) On anticoagulant therapy managed by pcp History of pulmonary embolus (PE) 2020 during chemotherapy and radiation treatments. no problems since starting anticoagulants. Tonic-clonic seizure last seizure was 03/25/23 (treated inpatient at [facility]) after having his seizure medication discontinued at the time. no problems since restarting medication. Surgical History History of carpal tunnel release bilateral S/P excision of lipoma History of craniotomy to resection brain tumor in 03/2020 at [facility]. Family History Other No family history of adverse response to anesthesia Social History Smoking Status: Never smoker Tobacco Type: Cigarettes Second Hand Exposure: No; Do You Dip or Chew Tobacco: No; Hx Alcohol Use: Yes Alcohol type: beer and hard liquor Hx Substance Use: Yes (medical cannabis) Last Used Substance Other:: 04/13/23 Preferred Language: Lao Communication Ability: Effective Handicapper [employer] Required: No Beliefs That Will Affect Care: None Current Living Situation: Family Current Living Situation Comment: lives with brother Reid and sister in [place] Feels Safe at Home: Yes Assistive Devices: Glasses Review of Systems Review of Systems: A 10 point review of system was obtained and unless otherwise stated here or in history of present illness are negative and noncontributory to chief complaint. Physical Exam Physical Exam: In General: In general she is a pleasant 47-year-old gentleman. He is tired. But he interacts appropriately. He continues to have he is drained physically and emotionally from the day he has had. 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 The patient has no complaints except weakness. HEENT: Normocephalic. The patient does have a small skin laceration in the superior lateral orbit region on the right. With some surrounding edema. His pupils are equal round and react light bilaterally extraocular muscle intact bilaterally no scleral icterus. No conjunctival injection. NECK: Supple no rigidity no lymphadenopathy no thyromegaly no carotid bruits no JVD no masses. HEART: Regular rate and rhythm I do not appreciate any ectopy or rub. No murmur. LUNGS: Clear to auscultation bilaterally and anteriorly with no evidence of adventitious sounds/wheezes rales or rhonchi. ABDOMEN: Soft nontender, no rebound, no peritoneal signs, positive bowel sounds, no appreciable organomegaly. EXTREMITIES: Intact, no peripheral cyanosis, clubbing or edema. Strength is 5 out of 5 in extremities x4. The patient has abrasions over his hands on the palmar surfaces as well on his right shoulder region. NEUROLOGICAL: Grossly intact currently with no focal deficit on examination. Results & Data Results & Data Vital Signs (Past 12 Hours) Vital Signs Temp Pulse Pulse Resp BP BP Pulse Ox 10/13/23 17:00 49 L 16 118/66 95 10/13/23 16:29 97 H 20 118/66 98 10/13/23 15:52 51 L 19 150/92 H 96 10/13/23 15:52 10/13/23 15:49 36.4 C L 90 18 171/114 H 95 10/13/23 15:35 66 10/13/23 15:22 61 20 157/73 H 95 O2 Del Method 10/13/23 17:00 Room Air 10/13/23 16:29 Room Air 10/13/23 15:52 Room Air 10/13/23 15:52 Room Air 10/13/23 15:49 Room Air 10/13/23 15:35 10/13/23 15:22 Room Air Code Status & VTE Plan Code Status Full code. I personally discussed with patient at the bedside today as well as with his brother who is power of privacy attorney at the bedside. VTE Prophylaxis Plan VTE Prophylaxis will be ordered: Yes PG Care Time/CCT Total # of Minutes Spent Total Time Spent with Patient: Total time spent is greater than 50% in coordination of care (as documented) at patient's floor/unit and/or counseling patient: Coding Level of Care Code 21080 INT INP/OBS CARE 3/75MIN Diagnoses Anaplastic astrocytoma C71.9
[2023-10-13 18:52] LABS: Estimated Average Glucose 111 mg/dl; Hemoglobin A1C 5.5 % (4.5-5.6)
--- NOTE | 2023-10-13 19:11 | Emergency Department Note ---
ED Visit Note Laceration repair performed by myself Location: Just inferior to right eyebrow Description: Slightly irregular horizontal laceration extending just into the subcutaneous tissue. Minimal capillary bleeding Procedure: Wound was anesthetized with 2 mL lidocaine 1% with epinephrine. Copiously irrigated with sterile saline. Repaired with 4, 5-0 nylon simple interrupted sutures. Dressed with bacitracin ointment. Total laceration length 2 cm. - Education provided to patient and brother to keep a thin layer of bacitracin ointment applied to the wound until the sutures are removed in 5 to 6 days which can be performed by primary care or return to the emergency department if the patient is discharged by then. .
[2023-10-13] MEDS: LIDOCAINE 1%/EPINEPHRINE 1:100,000 50 ML VIAL INFIL ONE (19:20)
[2023-10-13] MEDS: levETIRAcetam 500 MG TAB PO SCH (21:21)
[2023-10-13] MEDS: ACETAMINOPHEN 325 MG TAB PO PRN (21:21)
[2023-10-13] MEDS: DIVALPROEX DELAY RELEASE 500 MG TAB PO SCH (21:22)
[2023-10-13] MEDS: dexAMETHasone 4 MG in SYRINGE 0 ML IV SCH (22:56)
[2023-10-14 05:23] LABS: Basophils # (auto) 0.01 K/uL (0.00-0.20); Basophils % (auto) 0.1 %; Hematocrit (blood only) 43.8 % (42.0-52.0); Hemoglobin 14.9 g/dl (14.0-18.0); Immature Granulocytes # (auto) 0.02 K/uL (0.01-0.20); Immature Granulocytes % (auto) 0.3 %; Lymphocytes # (auto) 1.13 K/uL (1.20-3.40); Lymphocytes % (auto) 14.3 %; Mean Corpuscular Volume 85.2 fL (80.0-100.0); Mean Platelet Volume 9.9 fL (9.4-12.4); Monocytes # (auto) 0.29 K/uL (0.11-0.59); Monocytes % (auto) 3.7 %; Neutrophils # (auto) 6.45 K/uL (1.40-6.50); Neutrophils % (auto) 81.6 %; Platelet Count 287 K/uL (130-400); RDW Coefficient of Variation 12.5 % (11.5-14.5); Red Blood Count 5.14 M/uL (4.70-6.10)
[2023-10-14 05:26] LABS: Albumin Globulin Ratio 1.9 (0.9-2); Albumin Level 4.4 gm/dl (3.4-5.0); BUN Creatinine Ratio 22.4 (10-20); Bilirubin,Total 0.8 mg/dl (0.2-1.0); Calcium 9.5 mg/dl (8.6-10.3); Creatinine Clr Calc Pharmacy 198.5 ml/min; Est GFR (African American) 139.7 ml/min; Est GFR (Non-African American) 120.6 ml/min; Globulin 2.3 gm/dl (2.5-4.0); Magnesium 1.7 mg/dl (1.7-2.4); Potassium 4.1 mmol/L (3.5-5.1); Total Protein 6.7 gm/dl (6.0-8.3)
[2023-10-14 05:39] LABS: Thyroid Stimulating Hormone 0.371 uIu/ml (0.300-4.500)
[2023-10-14] MEDS ORDERED: LORazepam 1 MG in SYRINGE 0.5 ML IV PRN (07:23)
[2023-10-14] MEDS: TAMSULOSIN HCL 0.4 MG CAP PO SCH (08:05)
[2023-10-14] MEDS: ATORVASTATIN 10 MG TAB PO SCH (08:05)
[2023-10-14] MEDS: GADOBUTROL 65ML VIAL IV ONE (09:27)
--- NOTE | 2023-10-14 09:36 | Neurology Consultation ---
Date of Consultation October 14, 2023 Assessment & Plan (1) Brain mass: (2) Seizure: History of Present Illness Attending Physician: Stefania Tamez MD History of Present Illness pt in Mri this morning. saw pt after the mri. noted for recurrence of his tumor and edema on left side and likely infiltration/edema to rt side also. pt is fully alert and doing ok without seizure. only mild headache this morning. talking well. coherent. admission HPI: This is a pleasant 47-year-old gentleman has a known history of a anaplastic astrocytoma. And a history of a seizure disorder. Early in the day had a breakthrough seizure. He presented to the ER. He was treated and discharged to home. On the way home he pulled his car to the side of the road to urinate and had a fall outside his car and was brought in as a trauma alert back to the ER today. Upon representation to the ER the patient had a CT of his brain which was grossly abnormal. Interpreted is status postcraniotomy with redemonstration of left parietal resection bed. 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 We are initially contacted for admission here at [facility]. We recommended making contact with [facility] neurology and neurosurgery. The ER provider made contact with subspecialist there. They are recommending admit to [facility] with a steroid taper. We have consulted local neurology and we spoke with local neurology personally by phone who will see the patient on consultation while here. Allergies Allergy/AdvReac Type Severity Reaction Status Date / Time No Known Allergies Allergy Verified 10/13/23 16:16 Home Medications Medication Instructions Recorded Confirmed Type apixaban 5 mg tablet 5 mg PO AMHS 03/25/23 10/13/23 History Medical Thc 1 dose PO UD PRN Anxiety 04/12/23 10/13/23 History multivitamin 1 tab PO QAM 04/12/23 10/13/23 History atorvastatin 10 mg tablet 10 mg PO QAM 06/16/23 10/13/23 History tamsulosin 0.4 mg capsule (Flomax) 0.4 mg PO QAM 06/16/23 10/13/23 History levetiracetam 750 mg tablet 750 mg PO BID #60 tabs 07/20/23 10/13/23 Rx (Keppra) levetiracetam 1,000 mg tablet 1,000 mg PO BID #60 tabs 09/16/23 10/13/23 Rx (Keppra) divalproex 500 mg tablet,delayed 500 mg PO UD 10/13/23 10/13/23 History release Patient History Medical History (Updated 10/13/23 @ 19:17 by Az Kelsey DO) On anticoagulant therapy managed by pcp History of pulmonary embolus (PE) 2020 during chemotherapy and radiation treatments. no problems since starting anticoagulants. Tonic-clonic seizure last seizure was 03/25/23 (treated inpatient at [facility]) after having his seizure medication discontinued at the time. no problems since restarting medication. Surgical History History of carpal tunnel release bilateral S/P excision of lipoma History of craniotomy to resection brain tumor in 03/2020 at [facility] [place]. Family History Other No family history of adverse response to anesthesia Social History Smoking Status: Former smoker Tobacco Type: Cigarettes Second Hand Exposure: No; Do You Dip or Chew Tobacco: No; Hx Alcohol Use: No Hx Substance Use: Yes Last Used Substance Other:: 04/13/23 Substance Use Type Other:: medical [facility] Preferred Language: Honduran Communication Ability: Effective Hot Saw Operator Required: No Beliefs That Will Affect Care: Synagogue Current Living Situation: Alone Current Living Situation Comment: pt states he plans to move in w/ his brother to assist w/ healthcare needs Feels Safe at Home: Yes Assistive Devices: Glasses Exam (Neuro) Physical Exam: Neuro: Mental: AOx4, fluent speech, normal comprehension, no apraxia, no L/R confusion, mild double simultagnosia. CN: PERRL, Full EOM, symmetric face, midline T/U/P, grossly full ROM neck Motor: No abnormal movements, normal tone, 5/5 t/o bilaterally Sens: intact to touch b/l grossly Coord: mild dysmetria with rt hand FNF. normal left FNF. DTR: 2+ sym b/l gait deferred. 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 He had mri done 09/22/2023, comparison appears there is progression of his edema (noted similar enhancing lesions that was noted last month). pt on decadron. His neurosurgeon from [facility] (Dr. Hewitt) accepted pt but he preferred to stay here at [facility]. pt known to neurology clinic, Dr. Monterroso (and our PA Jenna). Recommendations: continue decadron as planned. consider further discussion with his neurosurgeon at [facility] to consider transfer to [facility] for further definite care plan if pt declines. Pt wants to stay here for now. I had long discussion with his POA, , about the mri and pt's condition and prognosis. Pt has expressed in the past about not having further surgery/chemo if his tumor returns. pt currently intubate only code status. consider palliative care consult here. plan at this point is to finish the steroid and if he is well enough for discharge, have close f/u with [facility] neursurgery/oncology for future planning as outpt. continue increased dose of keppra 1000mg bid and depakote 500mg bid (level 49) as now. close eval for infection (check UA also) avoid hyponatremia and hypotonic solutions (try to keep sodium above 145) keep head of bed at 30 degree no need for EEG continue supportive care as now. Chart reviewed I have spent more than 50% educating patient about potential diagnosis and neurological evaluation and coordinating care with patient's treatment team. Total time spent (including chart review and coordination of care): 80 min (this includes chart review). Results & Data Vital Signs (Past 12 Hours) Vital Signs Temp Pulse Pulse Pulse Resp BP BP 10/14/23 08:08 71 18 132/76 10/14/23 07:57 64 10/14/23 02:47 36.8 C 66 16 103/62 10/13/23 23:00 36.5 C 61 18 117/70 10/13/23 21:57 67 Pulse Ox O2 Del Method 10/14/23 08:08 95 Room Air 10/14/23 07:57 10/14/23 02:47 94 Room Air 10/13/23 23:00 95 Room Air 10/13/23 21:57 PG Care Time/CCT Total # of Minutes Spent Total Time Spent with Patient: Total time spent is greater than 50% in coordination of care (as documented) at patient's floor/unit and/or counseling patient: Coding Level of Care Code 45183 IN/OBS CONSULT LVL 5,80M Diagnoses Brain mass G93.89 Seizure R56.9
--- NOTE | 2023-10-14 09:56 | Electrocardiogram Report ---
Test Reason : Blood Pressure : */* mmHG Vent. Rate : 89 BPM Atrial Rate : 89 BPM P-R Int : 172 ms QRS Dur : 102 ms QT Int : 400 ms P-R-T Axes : 50 50 4 degrees QTcB Int : 486 ms Normal sinus rhythm Prolonged QT Abnormal ECG When compared with ECG of 13-Oct-2023 11:33, Vent. rate has increased by 35 bpm Nonspecific T wave abnormality, improved in Anterior leads QT has lengthened Confirmed by Marvin Howard ([id number]) on 10/14/2023 9:55:59 AM Referred By: REFERRED SELF Confirmed By: Marvin Howard
--- NOTE | 2023-10-14 10:02 | Magnetic Resonance Report ---
MRI OF THE BRAIN COMBO CLINICAL HISTORY: Astrocytoma status post resection. COMPARISON STUDY: CT of the brain dated 10/13/2023. MRI of the brain dated 03/25/2023. TECHNIQUE: MRI of the brain was performed utilizing various T1 and T2-weighted sequences in the axial , sagittal, and coronal planes. Contrast-enhanced sequences were acquired following the administratio n of 10 cc of Gadavist. FINDINGS: Brain parenchyma: Left posterior parietal encephalomalacia is consistent with a site of prior surgica l resection. There is edema centered within the left posterior parietal lobe which contains 2 periphe ral enhancing lesions. The larger lesion measures 1.8 cm as seen on coronal postcontrast image #20 an d the smaller lesion measures 0.7 cm seen on coronal image #19. These findings are highly suggestive of tumor recurrence. There is extensive surrounding abnormal signal on the FLAIR sequences which cros ses the corpus callosum and also involves the right posterior parietal cortex. The overall region of edema within the left posterior hemisphere measures approximately 8 cm and extends into the temporal an occipital lobes. There is mild effacement of the overlying cortical sulci. No midline shift is obs erved. No hemorrhage is seen. There is no restricted diffusion typical for acute ischemia. Subcentime ter foci of faintly restricted diffusion within the region of edema are likely related to tumor. No e xtra-axial fluid collection is seen. The cerebellar tonsils are normal in configuration. Ventricles, sulci, and cisterns: Normal in configuration. See above. Pituitary and sella: Unremarkable. Intracranial vasculature: Normal flow voids are maintained at the skull base. Orbits: The bony orbits are grossly intact. Orbital contents are normal in appearance. Sinuses and mastoids: Clear. Calvarium: There is postsurgical change from left posterior parietal craniotomy. No destructive jeane rial lesion is seen. Cervical cord: Partially visualized cervical spinal cord is normal in morphology and signal intensity . IMPRESSION: 1. There is no hemorrhage, midline shift, or evidence of acute ischemia. 2. There is extensive signal abnormality and edema centered in the left posterior parietal lobe blair ex adjacent to the resection margin with 2 peripherally enhancing lesions identified. This is highly suggestive of tumor recurrence, and abnormal FLAIR signal involves the left temporal and occipital lo bes, and also involves/crosses the corpus callosum to involve the right parietal cortex. This likely represents diffuse infiltrative tumor. ACT 112: Negative or not required by law. Electronically signed by: Milad Rouse M.D. 10/14/2023 10:01 AM
--- NOTE | 2023-10-14 10:44 | Ultrasound Report ---
ULTRASOUND BILATERAL LOWER EXTREMITY VENOUS CLINICAL HISTORY: Cancer history. History of deep venous thrombosis. COMPARISON STUDY: No priors. TECHNIQUE: Real-time, grayscale, and color Doppler sonography of the deep veins of the right and left lower extremity was performed from the inguinal crease to the calf. Compression and augmentation wer e utilized. FINDINGS: Right lower extremity: There is no sonographic evidence of deep venous thrombosis in the right lower extremity. The common femoral, superficial femoral, and popliteal veins are patent and normally compr essible. The greater saphenous vein and the profunda femoris vein at the junction with the common fem oral vein are clear. The visualized calf veins are patent. There is age indeterminant nonocclusive mcghee perficial venous thrombosis in the profunda femoris vein extending from the mid thigh to the knee. Ag e indeterminate newly occlusive superficial thrombus is also seen in the lesser saphenous vein extend ing from the posterior knee to the mid calf. Left lower extremity: There is no sonographic evidence of deep venous thrombosis in the left lower ex tremity. The common femoral, superficial femoral, and popliteal veins are patent and normally hesham sible. The greater saphenous vein and the profunda femoris vein at the junction with the common femor al vein are clear. The visualized calf veins are patent. IMPRESSION: 1. There is no sonographic evidence of deep venous thrombosis in the right or left lower extremity. 2. There are long segments of age indeterminant superficial venous thrombosis in the right lower extr emity as above. ACT 112: Negative or not required by law. Electronically signed by: Milad Rouse M.D. 10/14/2023 10:43 AM
[2023-10-14] MEDS: BACITRACIN OINT 14 GM TUBE EXT SCH (13:56)
[2023-10-14 15:13] LABS: Appearance Urine Clear (Clear); Bilirubin Urine Negative (Negative); Blood Urine Negative (Negative); Color Urine Yellow; Glucose Urine UA Negative (Negative); Ketones Urine Trace (Negative); Leukocyte Esterase Urine Negative (Negative); Nitrite Urine Negative (Negative); Protein Urine Negative (Negative); Urobilinogen Urine Negative (Negative)
--- NOTE | 2023-10-14 17:10 | Hospitalist Progress Note ---
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 This would be the provoking factor for his increased seizures. [facility] neurology and neurosurgery were consulted via our ER provider. Recommendations for steroid taper, brain MRI - continue Decadron taper as ordered - seems improved with this he is alert and oriented to at least basic situation time and place today - obtained brain MRI with and without contrast, highly concerning for progression of astrocytoma - consulted palliative care - Dr. Garcia follows him in the office. in the past Talib has not wanted additional surgery or radiation. He met with Dr. Garcia from palliative care today who knows him well, his concerns are loss of functional status so he may be willing to consider further treatment depending on the expected quality of life following proposed treatments, he is willing for transfer to [place] at this time if that is necessary. transferring out of the local area does make it more difficult for his family to support him - discussed with neurosurgeon Dr. Hewitt at [place]. Dr Jamison also aware of situation - pushed to PACS images of brain MRI, he will review and let me know if there are any surgical options (2) Seizure: Plan: Recurrent seizures secondary to vasogenic edema and brain tumor. Seizure precautions ordered. He is on Keppra which was increased from 750 mg twice daily to 1000 mg twice daily today - his surgeon reports that he tolerates increased Keppra poorly and has anger and other side effects - if no other further seizures we can try decreasing his Keppra back to baseline dosing, after expected improvement in vasogenic edema from the Decadron continue valproic acid, with low therapeutic level - appreciate neurology consultation by Dr. Brady. reviewed recommendations, ordered UA which is negative for UTI (3) History of pulmonary embolus (PE): Plan: he had a PE in 2020 when he was under chemo therapy and radiation for his astrocytoma apixaban was held on advice of neurosurgery at [facility] no signs or symptoms of DVT or PE at this time, obtained a lower extremity duplex which shows no active DVTs there are some superficial venous thrombosis with chronicity - potentially may need IVC filter however, it is safe to defer this for this weekend and reassess once the treatment plan and goals of care become more clarified Plan right forehead lacerationlateral eyebrow sutures placed in ED on 10/12, remove in 5 days ordered bacitracin daily to suture line Multiple skin wounds from his fall. We have consulted wound care nurse. Dyslipidemia continue statin therapy. History of BPH - cont tamsulosin CTA of the neck demonstrated a 6 x 3.6 right thyroid lobe nodule. This needs followed up on an outpatient basis per standard of care with ultrasound. DVT prophylaxis: See above, apixaban held because of brain tumor, will start DVT prophylaxis with enoxaparin Admission and Anticipated Discharge Date Admission Date: October 13, 2023 Subjective Talib is awake and alert this morning he is oriented to his situation he knows he is in the hospital after seizures and a fall he cannot remember much from yesterday no further seizures overnight Physical Exam 2 Physical Exam: PHYSICAL EXAMINATION Last 24h vital signs reviewed, see documentation in flowsheet General: comfortable appearing, no distress, eating breakfast HEENT: Normocephalic, atraumatic, pupils round and equal, sclerae anicteric, no conjunctival injection, moist mucus membranes laceration right lateral eyebrow with sutures in place well opposed no drainage Lungs: Normal respiratory effort. Clear to auscultation bilaterally. No RRW Heart: Regular rate and rhythm, no murmurs. No JVD Abdomen: Soft, nontender, nondistended. Bowel sounds present. Extremities: Warm, dry, well-perfused. No extremity edema. Neuro: Alert and oriented x 4, face symmetric, moves 4 extremities well, right upper extremity and right lower extremity weakness. baseline right visual field deficit Psych: Normal affect and behavior Results & Data Results & Data Vital Signs (Past 12 Hours) Vital Signs Temp Pulse Pulse Resp BP Pulse Ox O2 Del Method 10/14/23 16:01 36.4 C L 78 18 122/70 95 Room Air 10/14/23 13:52 86 10/14/23 11:41 36.4 C L 77 20 122/82 95 Room Air 10/14/23 08:08 71 18 132/76 95 Room Air 10/14/23 07:57 64 Laboratory Results 10/14/23 04:37 10/14/23 04:37 I reviewed all the labs which are not very remarkable. Valproic acid level is 49 very low end of therapeutic range. Urinalysis was negative for infection only trace ketones Diagnostic Findings Brain MRI 10/14/23 08:16 MRI OF THE BRAIN COMBO CLINICAL HISTORY: Astrocytoma status post resection. COMPARISON STUDY: CT of the brain dated 10/13/2023. MRI of the brain dated 03/25/2023. TECHNIQUE: MRI of the brain was performed utilizing various T1 and T2-weighted sequences in the axial, sagittal, and coronal planes. Contrast-enhanced sequences were acquired following the administration of 10 cc of Gadavist. FINDINGS: Brain parenchyma: Left posterior parietal encephalomalacia is consistent with a site of prior surgical resection. There is edema centered within the left posterior parietal lobe which contains 2 peripheral enhancing lesions. The larger lesion measures 1.8 cm as seen on coronal postcontrast image #20 and the smaller lesion measures 0.7 cm seen on coronal image #19. These findings are highly suggestive of tumor recurrence. There is extensive surrounding abnormal signal on the FLAIR sequences which crosses the corpus callosum and also involves the right posterior parietal cortex. The overall region of edema within the left posterior hemisphere measures approximately 8 cm and extends into the temporal an occipital lobes. There is mild effacement of the overlying cortical sulci. No midline shift is observed. No hemorrhage is seen. There is no restricted diffusion typical for acute ischemia. Subcentimeter foci of faintly restricted diffusion within the region of edema are likely related to tumor. No extra-axial fluid collection is seen. The cerebellar tonsils are normal in configuration. Ventricles, sulci, and cisterns: Normal in configuration. See above. Pituitary and sella: Unremarkable. Intracranial vasculature: Normal flow voids are maintained at the skull base. Orbits: The bony orbits are grossly intact. Orbital contents are normal in appearance. Sinuses and mastoids: Clear. Calvarium: There is postsurgical change from left posterior parietal craniotomy. No destructive calvarial lesion is seen. Cervical cord: Partially visualized cervical spinal cord is normal in morphology and signal intensity. IMPRESSION: 1. There is no hemorrhage, midline shift, or evidence of acute ischemia. 2. There is extensive signal abnormality and edema centered in the left posterior parietal lobe cortex adjacent to the resection margin with 2 peripherally enhancing lesions identified. This is highly suggestive of tumor recurrence, and abnormal FLAIR signal involves the left temporal and occipital lobes, and also involves/crosses the corpus callosum to involve the right parietal cortex. This likely represents diffuse infiltrative tumor. ACT 112: Negative or not required by law. Electronically signed by: Milad Rouse M.D. 10/14/2023 10:01 AM Venous Doppler Study 10/14/23 08:16 ULTRASOUND BILATERAL LOWER EXTREMITY VENOUS CLINICAL HISTORY: Cancer history. History of deep venous thrombosis. COMPARISON STUDY: No priors. TECHNIQUE: Real-time, grayscale, and color Doppler sonography of the deep veins of the right and left lower extremity was performed from the inguinal crease to the calf. Compression and augmentation were utilized. FINDINGS: Right lower extremity: There is no sonographic evidence of deep venous thrombosis in the right lower extremity. The common femoral, superficial femoral, and popliteal veins are patent and normally compressible. The greater saphenous vein and the profunda femoris vein at the junction with the common femoral vein are clear. The visualized calf veins are patent. There is age indeterminant nonocclusive superficial venous thrombosis in the profunda femoris vein extending from the mid thigh to the knee. Age indeterminate newly occlusive superficial thrombus is also seen in the lesser saphenous vein extending from the posterior knee to the mid calf. Left lower extremity: There is no sonographic evidence of deep venous thrombosis in the left lower extremity. The common femoral, superficial femoral, and popliteal veins are patent and normally compressible. The greater saphenous vein and the profunda femoris vein at the junction with the common femoral vein are clear. The visualized calf veins are patent. IMPRESSION: 1. There is no sonographic evidence of deep venous thrombosis in the right or left lower extremity. 2. There are long segments of age indeterminant superficial venous thrombosis in the right lower extremity as above. ACT 112: Negative or not required by law. Electronically signed by: Milad Rouse M.D. 10/14/2023 10:43 AM PG Care Time/CCT Total # of Minutes Spent Total Time Spent with Patient: I personally spent: 55 minutes today on clinical care activities including: reviewing chart notes and vital signs reviewing labs reviewing studies discussion with internet marketing consultant(s) examining and counseling the patient contacting his neurosurgery team at [facility] writing orders documentation Coding Level of Care Code 12220 SUB INP/OBS CARE 3/50MIN Diagnoses Anaplastic astrocytoma C71.9 Seizure R56.9 History of pulmonary embolus (PE) Z86.711
--- NOTE | 2023-10-14 19:11 | Palliative Care Consultation ---
Date of Consultation October 14, 2023 Assessment & Plan (1) Fatigue: Fatigue type: chronic, unspecified Qualified Code(s): R53.82 - Chronic fatigue, unspecified (2) Fall: Encounter type: initial encounter Qualified Code(s): W19.XXXA - Unspecified fall, initial encounter (3) Palliative care by specialist: (4) Advanced care planning/counseling discussion: ACP meetings x 2 held with pt/brother Reid richmond patient for total ACP time of 45min Ernesto tells me he is aware of the findings,he knows that the brain cancer is back, multiple lesions and causing swelling and for this he has been started on steroids. He wants to know what options he may have. He has reconnected with his sons and daughter though he tearfully states the relationship with daughter is "complicated by my ex who hates me" He wants to consider options that may offer him more QOL and time with family but he is clear he does not want to risk losing more of his cognitive ability or memories. He is firm on not wanting to lose memories, shefali of his children. Imaging dropped to PACS for [facility] neuro-onc team to review They will contact primary team with recc/?decision for transfer Ernesto states he would accept transfer if that is fastest way to get the care he needs and not risk losing his cognitive and memory function. There is some family disagreement re goals noted but this can be further explored once we have formal reccs from [place] Plan As above Await [facility] Neuro Onc feedback from Doug Jamison and Kash Thank you for allowing us to participate in the ongoing care of this patient. Please page with any additional concerns. Ammon Garcia DNP Director, Palliative Medicine History of Present Illness Reason for Consultation: ongoing care Attending Physician: Stefania Tamez MD History of Present Illness Mukund is a 47yo male with a recurrent anaplastic astrocytoma. and seizure disorder. ADmitted from home with report of breakthrough seizure s/p fall outside his car and was brought in as a trauma alert back to the ER. 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 Ernesto is well known to me from OP Pall med clinic. He is the brother of our [facility] Pharmacy Grad Intern Reid Gomez who is also pt's POA Ernesto recently returned from a trip to [place] to visit his brother and consider options to relocate there to be closer to 3 of his 4 children While in [place], he had 2 grand mal seizures and was admitted to ICU He chose to return to [place] by train then had another seizure within a day of his return He si seen today at bedside with his brother Reid present Allergies Allergy/AdvReac Type Severity Reaction Status Date / Time No Known Allergies Allergy Verified 10/13/23 16:16 Home Medications Medication Instructions Recorded Confirmed Type apixaban 5 mg tablet 5 mg PO AMHS 03/25/23 10/13/23 History Medical Thc 1 dose PO UD PRN Anxiety 04/12/23 10/13/23 History multivitamin 1 tab PO QAM 04/12/23 10/13/23 History atorvastatin 10 mg tablet 10 mg PO QAM 06/16/23 10/13/23 History tamsulosin 0.4 mg capsule (Flomax) 0.4 mg PO QAM 06/16/23 10/13/23 History levetiracetam 750 mg tablet 750 mg PO BID #60 tabs 07/20/23 10/13/23 Rx (Keppra) levetiracetam 1,000 mg tablet 1,000 mg PO BID #60 tabs 09/16/23 10/13/23 Rx (Keppra) divalproex 500 mg tablet,delayed 500 mg PO UD 10/13/23 10/13/23 History release Patient History Medical History (Updated 10/14/23 @ 19:18 by Christina Garcia DNP) On anticoagulant therapy managed by pcp History of pulmonary embolus (PE) 2020 during chemotherapy and radiation treatments. no problems since starting anticoagulants. Tonic-clonic seizure last seizure was 03/25/23 (treated inpatient at [facility]) after having his seizure medication discontinued at the time. no problems since restarting medication. Surgical History History of carpal tunnel release bilateral S/P excision of lipoma History of craniotomy to resection brain tumor in 03/2020 at [facility] [place]. Family History Other No family history of adverse response to anesthesia Social History Smoking Status: Former smoker Tobacco Type: Cigarettes Second Hand Exposure: No; Do You Dip or Chew Tobacco: No; Hx Alcohol Use: No Hx Substance Use: Yes Last Used Substance Other:: 04/13/23 Substance Use Type Other:: medical [facility] Preferred Language: Cymro Communication Ability: Effective [employer] Supervisor Required: No Beliefs That Will Affect Care: Gnosticist Current Living Situation: Alone Current Living Situation Comment: pt states he plans to move in w/ his brother to assist w/ healthcare needs Feels Safe at Home: Yes Assistive Devices: None Review of Systems Review of Systems: All systems reviewed & are unremarkable except as noted in Subjective Physical Exam Physical Exam: chronically ill appearing laceration above right eye mild bitemp wasting, healed crani scar AAOx3 able to follow simple commands neck supple no stridor resp even no wheeze or rales abd soft, NTP, BS+ strength mild diminished overall following commands Delirium screen is negative Alert to person, place and time (year = 2023) Results & Data Vital Signs (Past 12 Hours) Vital Signs Temp Pulse Pulse Resp BP Pulse Ox O2 Del Method 10/14/23 16:01 36.4 C L 78 18 122/70 95 Room Air 10/14/23 13:52 86 10/14/23 11:41 36.4 C L 77 20 122/82 95 Room Air 10/14/23 08:08 71 18 132/76 95 Room Air 10/14/23 07:57 64 Laboratory Results 10/14/23 10/14/23 10/13/23 Range/Units Unknown 04:37 19:18 WBC 7.90 (4.8-10.8) K/ul RBC 5.14 (4.70-6.10) M/uL Hgb 14.9 (14.0-18.0) g/dl POC Hgb (14.0-18.0) g/dl Hct 43.8 (42.0-52.0) % POC Hct (42-52) % MCV 85.2 (80.0-100.0) fL MCH 29.0 (25.0-34.0) pg MCHC 34.0 (32.0-36.0) g/dL RDW Std Deviation 39.0 (36.4-46.3) fL RDW Coeff of Aj 12.5 (11.5-14.5) % Plt Count 287 (130-400) K/uL MPV 9.9 (9.4-12.4) fL Immature Gran % (Auto) 0.3 % Neut % (Auto) 81.6 % Lymph % (Auto) 14.3 % Lawrence % (Auto) 3.7 % Eos % (Auto) 0.0 % Baso % (Auto) 0.1 % Neut # (Auto) 6.45 (1.40-6.50) K/uL Lymph # (Auto) 1.13 L (1.20-3.40) K/uL Lawrence # (Auto) 0.29 (0.11-0.59) K/uL Eos # (Auto) 0.00 (0.00-0.50) K/uL Baso # (Auto) 0.01 (0.00-0.20) K/uL Immature Gran # (Auto) 0.02 (0.01-0.20) K/uL PT (9.0-12.0) Seconds INR (0.9-1.1) APTT (21-31) Seconds PTT Ratio POC Sodium (135-144) mmol/L Sodium 137 (136-145) mmol/L POC Potassium (3.3-5.0) mmol/L Potassium 4.1 (3.5-5.1) mmol/L POC Chloride (101-112) mmol/L Chloride 103 (98-107) mmol/L Carbon Dioxide 25 (21-32) mmol/L POC Total CO2 (24-31) mmol/L Anion Gap 9 (3-11) POC Anion Gap (16-25) mmol/L POC BUN (7-18) mg/dl BUN 13 (6-23) mg/dl Creatinine 0.58 L (0.6-1.4) mg/dl POC Creatinine (0.6-1.3) mg/dl Est Cr Clr Drug Dosing 198.5 ml/min Est GFR ( Amer) 139.7 ml/min Est GFR (Non-Af Amer) 120.6 ml/min BUN/Creatinine Ratio 22.4 H (10-20) Glucose 142 H (70-99(Fasting)) mg/dl POC Glucose (other) (70-99) mg/dl Estimat Average Glucose mg/dl Hemoglobin A1c (4.5-5.6) % Calcium 9.5 (8.6-10.3) mg/dl POC Ioniz Calcium Jignesh (1.12-1.32) mmol/l Magnesium 1.7 (1.7-2.4) mg/dl Total Bilirubin 0.8 (0.2-1.0) mg/dl AST 15 (13-39) U/L ALT 18 (7-52) U/L Alkaline Phosphatase 46 (34-104) U/L Troponin I High Sens (0-20) pg/ml Total Protein 6.7 (6.0-8.3) gm/dl Albumin 4.4 (3.4-5.0) gm/dl Globulin 2.3 L (2.5-4.0) gm/dl Albumin/Globulin Ratio 1.9 (0.9-2) Triglycerides 58 (0-150) mg/dl Cholesterol 181 (0-200) mg/dl LDL Cholesterol, Calc 109 mg/dl VLDL Cholesterol, Calc 12 (0-30) mg/dl HDL Cholesterol 60 mg/dl Cholesterol/HDL Ratio 3.0 (0-5) TSH 0.371 (0.300-4.500) uIu/ml Urine Color Yellow Urine Appearance Clear (Clear) Urine pH 6.0 (4.5-7.5) Ur Specific Bro[place] 1.010 (1.000-1.030) Urine Protein Negative (Negative) Urine Glucose (UA) Negative (Negative) Urine Ketones Trace H (Negative) Urine Blood Negative (Negative) Urine Nitrite Negative (Negative) Urine Bilirubin Negative (Negative) Urine Urobilinogen Negative (Negative) Ur Leukocyte Esterase Negative (Negative) Valproic Acid 49 L (50-100) mcg/ml 10/13/23 10/13/23 Range/Units 15:40 15:35 WBC 9.65 (4.8-10.8) K/ul RBC 5.03 (4.70-6.10) M/uL Hgb 14.8 (14.0-18.0) g/dl POC Hgb 14.6 (14.0-18.0) g/dl Hct 44.9 (42.0-52.0) % POC Hct 43 (42-52) % MCV 89.3 (80.0-100.0) fL MCH 29.4 (25.0-34.0) pg MCHC 33.0 (32.0-36.0) g/dL RDW Std Deviation 42.5 (36.4-46.3) fL RDW Coeff of Aj 13.0 (11.5-14.5) % Plt Count 270 (130-400) K/uL MPV 9.6 (9.4-12.4) fL Immature Gran % (Auto) 0.3 % Neut % (Auto) 49.2 % Lymph % (Auto) 38.5 % Lawrence % (Auto) 9.4 % Eos % (Auto) 2.1 % Baso % (Auto) 0.5 % Neut # (Auto) 4.74 (1.40-6.50) K/uL Lymph # (Auto) 3.72 H (1.20-3.40) K/uL Lawrence # (Auto) 0.91 H (0.11-0.59) K/uL Eos # (Auto) 0.20 (0.00-0.50) K/uL Baso # (Auto) 0.05 (0.00-0.20) K/uL Immature Gran # (Auto) 0.03 (0.01-0.20) K/uL PT 11.1 (9.0-12.0) Seconds INR 1.0 (0.9-1.1) APTT 24 (21-31) Seconds PTT Ratio 0.9 POC Sodium 140 (135-144) mmol/L Sodium 139 (136-145) mmol/L POC Potassium 3.4 (3.3-5.0) mmol/L Potassium 3.5 (3.5-5.1) mmol/L POC Chloride 102 (101-112) mmol/L Chloride 103 (98-107) mmol/L Carbon Dioxide 28 (21-32) mmol/L POC Total CO2 26 (24-31) mmol/L Anion Gap 8 (3-11) POC Anion Gap 15.0 L (16-25) mmol/L POC BUN 14 (7-18) mg/dl BUN 16 (6-23) mg/dl Creatinine 0.65 (0.6-1.4) mg/dl POC Creatinine 0.8 (0.6-1.3) mg/dl Est Cr Clr Drug Dosing 177.2 ml/min Est GFR ( Amer) 133.3 ml/min Est GFR (Non-Af Amer) 115.0 ml/min BUN/Creatinine Ratio 24.6 H (10-20) Glucose 110 H (70-99(Fasting)) mg/dl POC Glucose (other) 105 H (70-99) mg/dl Estimat Average Glucose 111 mg/dl Hemoglobin A1c 5.5 (4.5-5.6) % Calcium 9.5 (8.6-10.3) mg/dl POC Ioniz Calcium Jignesh 1.19 (1.12-1.32) mmol/l Magnesium 1.7 (1.7-2.4) mg/dl Total Bilirubin 0.8 (0.2-1.0) mg/dl AST 17 (13-39) U/L ALT 21 (7-52) U/L Alkaline Phosphatase 44 (34-104) U/L Troponin I High Sens < 2.3 (0-20) pg/ml Total Protein 6.9 (6.0-8.3) gm/dl Albumin 4.4 (3.4-5.0) gm/dl Globulin 2.5 (2.5-4.0) gm/dl Albumin/Globulin Ratio 1.8 (0.9-2) Triglycerides (0-150) mg/dl Cholesterol (0-200) mg/dl LDL Cholesterol, Calc mg/dl VLDL Cholesterol, Calc (0-30) mg/dl HDL Cholesterol mg/dl Cholesterol/HDL Ratio (0-5) TSH (0.300-4.500) uIu/ml Urine Color Urine Appearance (Clear) Urine pH (4.5-7.5) Ur Specific Brokaw (1.000-1.030) Urine Protein (Negative) Urine Glucose (UA) (Negative) Urine Ketones (Negative) Urine Blood (Negative) Urine Nitrite (Negative) Urine Bilirubin (Negative) Urine Urobilinogen (Negative) Ur Leukocyte Esterase (Negative) Valproic Acid (50-100) mcg/ml Diagnostic Findings Chest X-Ray 10/13/23 15:33 SINGLE VIEW CHEST CLINICAL HISTORY: Neurologic deficit. Stroke like symptoms. FINDINGS: An AP, portable, upright chest radiograph is obtained. No prior studies are available for comparison at the time of dictation. The cardiomediastinal silhouette is unremarkable. The lungs and pleural spaces are clear. No pneumothorax is seen. The bony thorax is grossly intact. IMPRESSION: No active disease in the chest. ACT 112: Negative or not required by law. Electronically signed by: Milad Rouse M.D. 10/13/2023 4:[address] 10/13/23 15:33 CT facial bones wo con CLINICAL HISTORY: fall hit faceeight sided weak TECHNIQUE: Multidetector row helical CT of the maxillofacial bones was performed without administration of intravenous contrast, and processed with bone and soft tissue algorithms. Coronal and sagittal reformations were obtained. Automated dose lowering techniques and/or adjustment according to patient size were utilized for this exam. Comparison: None available at the time of this dictation. FINDINGS: Nasal bones are normal. The mandible is intact. The temporomandibular joints are anatomically aligned. Pterygoid plates are intact. Zygomatic arches are intact. The globes are normal and symmetric, without proptosis, obvious disruption or lens dislocation. Soft tissue swelling is seen in the right periorbital region with some radiodensities noted. The orbital nuno are intact. The retrobulbar fat is without evidence of disruption. Extraocular muscles are normal and symmetric. Optic nerve sheath complexes are normal in course and caliber. Imaged portions of the paranasal sinuses and mastoid air cells are clear. IMPRESSION: Right periorbital soft tissue swelling is seen with some radiodensities which may represent foreign bodies. No evidence of acute fracture. ACT 112: Negative or not required by law. Electronically signed by: Jayce Joya M.D. 10/13/2023 3:[address] 10/13/23 15:33 CT OF THE HEAD WITHOUT CONTRAST CLINICAL HISTORY: neuro deficit, acute stroke suspected COMPARISON STUDY: Head CT and MRI of the brain March 25, 2023. MRI of the brain September 22, 2023. TECHNIQUE: Helical axial images of the head were obtained without IV contrast. Automated exposure control was utilized for the study. A dose lowering technique was utilized adhering to the principles of ALARA. FINDINGS: No acute intracranial hemorrhage is present. There are postoperative findings consistent with left parietal craniotomy. Left parietal volume loss was shown on prior exam. There is an adjacent left parietal 3.9 cm abnormality. This is centrally hypodense with peripheral hyperdensity. This has increased when compared to MRI of September 22, 2023. There is mild mass effect with minimal sulcal effacement. Adjacent hypodensity favors vasogenic edema. There is no evidence for herniation. Ventricular system is unremarkable. Basal cisterns are patent. There are no obstructive fluid collections. There are no calvarial fractures. IMPRESSION: 1. No acute intracranial hemorrhage. No CT evidence for acute infarct. 2. Status post left parietal craniotomy with redemonstration of a left parietal resection bed. Increase in an adjacent 3.9 cm abnormality within the left parietal lobe since MRI of September 22, 2023. 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 Adjacent vasogenic edema. ACT 112: Negative or not required by law. Electronically signed by: Aldo Candelaria M.D. 10/13/2023 4:16 PM Head CTA 10/13/23 15:33 CT ANGIOGRAM OF THE BRAIN CLINICAL HISTORY: Neurological deficit. Stroke like symptoms. History of astrocytoma. COMPARISON STUDY: Unenhanced CT of the brain performed concurrently on 10/13/2023. MRI of the brain dated 03/25/2023. TECHNIQUE: Following the IV administration of 118 cc of Optiray 320, CT jovani ogram of the brain was performed from the skull base to the vertex. Images are reviewed in the axial, sagittal, and coronal planes. 3-D MIPS images are created and assessed. IV contrast was administered without complication. A dose lowering technique was utilized adhering to the principles of ALARA. FINDINGS: Brain parenchyma: There is postsurgical change from left posterior parietal resection. There is a round 3 cm focus showing loss of weston-white matter differentiation in the left posterior parietal lobe on axial image #50 of 81. This does not show discernible postcontrast enhancement. There is no evidence of hemorrhage or midline shift. There is no evidence of acute territorial ischemia noting angiographic phase technique. No extra-axial fluid collection is seen. Ventricles, sulci, and cisterns: Normal in configuration. CT angiogram of the brain: The internal carotid arteries are widely patent, as are the anterior and middle cerebral arteries. The vertebrobasilar system and posterior cerebral arteries are widely patent. The right vertebral artery is dominant. There is a left posterior communicating artery. There is no aneurysm, high-grade stenosis, or focal vessel cutoff identified throughout the intracranial circulation. Dural sinuses: Clear as visualized. Orbits: The bony orbits are intact. The orbital contents are normal as visualized. Sinuses and mastoids: The paranasal sinuses are clear. The mastoid air cells are well pneumatized. Calvarium: There is postsurgical change from left posterior craniotomy. No destructive calvarial lesion is seen. IMPRESSION: 1. There is no evidence of hemorrhage, midline shift, or acute territorial ischemia noting angiographic phase technique. 2. There is postsurgical change from left parietal lobe resection. 3. There is an approximately 3 cm focus showing loss of weston-white matter differentiation in the left posterior parietal lobe in the region of the resection margin. This did not show discernible postcontrast enhancement. Although this could potentially represent a focus of ischemia, the appearance is more suspicious for recurrent/residual neoplasm. A contrast enhanced MRI of the brain is recommended for further assessment. 4. There is no aneurysm, high-grade stenosis or focal vessel cutoff seen throughout the intracranial circulation. ACT 112: Negative or not required by law. Electronically signed by: Milad Rouse M.D. 10/13/2023 4:21 PM Neck CTA 10/13/23 15:33 CT ANGIOGRAPHY OF THE NECK WITH CONTRAST CLINICAL HISTORY: neuro deficit, acute stroke suspected COMPARISON STUDY: None. Technique: CT angiography of the carotid and vertebral arteries was obtained using Optiray and 3D reconstruction on an independent workstation. NASCET criteria was utilized. Automated exposure control was utilized for the study. A dose lowering technique was utilized adhering to the principles of ALARA. CT DOSE: 2177.25 mGy.cm Findings: Visualized portions of the lung apices are unremarkable. Incidental note is made of a 6 x 3.6 cm heterogeneously enhancing right lobe thyroid nodule. There is no cervical lymphadenopathy. No cervical spinal fractures are present. The bilateral common carotid, cervical internal carotid and vertebral arteries are patent. There is no stenosis or dissection within the neck. There is no aneurysm within the neck. IMPRESSION: 1. No abnormalities within the bilateral common carotid, cervical internal carotid or vertebral arteries. 2. An indeterminate 6 x 3.6 cm right lobe thyroid nodule. ACT 112: Negative or not required by law. Electronically signed by: Aldo Candelaria M.D. 10/13/2023 4:23 PM Brain MRI 10/14/23 08:16 MRI OF THE BRAIN COMBO CLINICAL HISTORY: Astrocytoma status post resection. COMPARISON STUDY: CT of the brain dated 10/13/2023. MRI of the brain dated 03/25/2023. TECHNIQUE: MRI of the brain was performed utilizing various T1 and T2-weighted sequences in the axial, sagittal, and coronal planes. Contrast-enhanced sequences were acquired following the administration of 10 cc of Gadavist. FINDINGS: Brain parenchyma: Left posterior parietal encephalomalacia is consistent with a site of prior surgical resection. There is edema centered within the left posterior parietal lobe which contains 2 peripheral enhancing lesions. The la rger lesion measures 1.8 cm as seen on coronal postcontrast image #20 and the smaller lesion measures 0.7 cm seen on coronal image #19. These findings are highly suggestive of tumor recurrence. There is extensive surrounding abnormal signal on the FLAIR sequences which crosses the corpus callosum and also involves the right posterior parietal cortex. The overall region of edema within the left posterior hemisphere measures approximately 8 cm and extends into the temporal an occipital lobes. There is mild effacement of the overlying cortical sulci. No midline shift is observed. No hemorrhage is seen. There is no restricted diffusion typical for acute ischemia. Subcentimeter foci of faintly restricted diffusion within the region of edema are likely related to tumor. No extra-axial fluid collection is seen. The cerebellar tonsils are normal in configuration. Ventricles, sulci, and cisterns: Normal in configuration. See above. Pituitary and sella: Unremarkable. Intracranial vasculature: Normal flow voids are maintained at the skull base. Orbits: The bony orbits are grossly intact. Orbital contents are normal in appearance. Sinuses and mastoids: Clear. Calvarium: There is postsurgical change from left posterior parietal craniotomy. No destructive calvarial lesion is seen. Cervical cord: Partially visualized cervical spinal cord is normal in morphology and signal intensity. IMPRESSION: 1. There is no hemorrhage, midline shift, or evidence of acute ischemia. 2. There is extensive signal abnormality and edema centered in the left posterior parietal lobe cortex adjacent to the resection margin with 2 peripherally enhancing lesions identified. This is highly suggestive of tumor recurrence, and abnormal FLAIR signal involves the left temporal and occipital lobes, and also involves/crosses the corpus callosum to involve the right parietal cortex. This likely represents diffuse infiltrative tumor. ACT 112: Negative or not required by law. Electronically signed by: Milad Rouse M.D. 10/14/2023 10:01 AM Venous Doppler Study 10/14/23 08:16 ULTRASOUND BILATERAL LOWER EXTREMITY VENOUS CLINICAL HISTORY: Cancer history. History of deep venous thrombosis. COMPARISON STUDY: No priors. TECHNIQUE: Real-time, grayscale, and color Doppler sonography of the deep veins of the right and left lower extremity was performed from the inguinal crease to the calf. Compression and augmentation were utilized. FINDINGS: Right lower extremity: There is no sonographic evidence of deep venous thrombosis in the right lower extremity. The common femoral, superficial femoral, and popliteal veins are patent and normally compressible. The greater saphenous vein and the profunda femoris vein at the junction with the common femoral vein are clear. The visualized calf veins are patent. There is age indeterminant nonocclusive superficial venous thrombosis in the profunda femoris vein extending from the mid thigh to the knee. Age indeterminate newly occlusive superficial thrombus is also seen in the lesser saphenous vein extending from the posterior knee to the mid calf. Left lower extremity: There is no sonographic evidence of deep venous thrombosis in the left lower extremity. The common femoral, superficial femoral, and popliteal veins are patent and normally compressible. The greater saphenous vein and the profunda femoris vein at the junction with the common femoral vein are clear. The visualized calf veins are patent. IMPRESSION: 1. There is no sonographic evidence of deep venous thrombosis in the right or left lower extremity. 2. There are long segments of age indeterminant superficial venous thrombosis in the right lower extremity as above. ACT 112: Negative or not required by law. Electronically signed by: Milad Rouse M.D. 10/14/2023 10:43 AM PG Care Time/CCT Total # of Minutes Spent Total Time Spent with Patient: Total time spent is greater than 50% in coordination of care (as documented) at patient's floor/unit and/or counseling patient: I spent 135 minutes overall addressing this very complex case: 25 min in medical data review/discussion with referring provider(s) and/or preparation for the visit incl OSH data 25 min in direct interaction with the patient/exam 45 min in Advance Care Planning/Goals of Care discussions as detailed above in note (must be >16min) 15 min in subsequent review and synthesis of assessment and plan 25 min communicating with other providers regarding the patient's case: nursing, primary team, rad onc, PSH, POA Advanced Care Planning 09139 Advanced Care Planning 30 Min 88340 Advanced Care Planning Additional 30 [place] [address] IN/OBS CONSULT LVL 5,80M (25 - SIGNIFICANT, SEPARATELY IDENTIFIABLE ) Patient Type New Medical Decision Making High Complexity Diagnoses Chronic fatigue R53.82 Fatigue type: chronic, unspecified Fall W19.XXXA Encounter type: initial encounter Palliative care by specialist Z51.5 Advanced care planning/counseling discussion Z71.89 Additional Codes Advanced Care Planning - 71105 Advanced Care Planning 30 Min: 33384 Advanced Care Planning 30 Min ([id number]) Advanced Care Planning - 77649 Advanced Care Planning Additional 30 Min: 64469 Advanced Care Planning Additional 30 Min ([id number])
[2023-10-14] MEDS: dexAMETHasone 3 MG in SYRINGE 0 ML IV SCH (19:53)
--- NOTE | 2023-10-15 09:33 | Neurology Progress Note ---
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 no more headache. mood stable. Results & Data Vital Signs (Past 12 Hours) Vital Signs Temp Pulse Pulse Resp BP Pulse Ox O2 Del Method 10/15/23 08:00 59 L 10/15/23 07:00 36.9 C 60 16 119/76 95 Room Air 10/15/23 03:26 36.7 C 71 18 100/63 94 Room Air 10/14/23 23:49 36.8 C 85 18 112/71 95 Room Air 10/14/23 22:04 74 Exam (Neuro) Physical Exam: Neuro: Mental: AOx4, fluent speech, normal comprehension, no apraxia, no L/R confusion, mild double simultagnosia. mood much improved. CN: PERRL, Full EOM, symmetric face, Motor: No abnormal movements, Coord: mild dysmetria with rt hand FNF. normal left FNF. gait ; normal. 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 He had mri done 09/22/2023, comparison appears there is progression of his edema (noted similar enhancing lesions that was noted last month). pt on decadron tapering schedule. His neurosurgeon from [place] (Dr. Hewitt) accepted pt but he preferred to stay here at [facility]. pt overall doing better and stable. Recommendations: continue decadron as planned. continue increased dose of keppra 1000mg bid and depakote 500mg bid (level 49) as now. his Neurosurgeon mentioned that he has hx of being irritable on higher dose of keppra but currently pt doing well without side effect and also being on depakote likely helps with mood. At this point, no need to change med dosing. continue supportive care as now. Chart reviewed I have spent more than 50% educating patient about potential diagnosis and neurological evaluation and coordinating care with patient's treatment team. Total time spent (including chart review and coordination of care): 35 min (this includes chart review). PG Care Time/CCT Total # of Minutes Spent Total Time Spent with Patient: Total time spent is greater than 50% in coordination of care (as documented) at patient's floor/unit and/or counseling patient: Coding Level of Care Code 82230 SUB INP/OBS CARE MIN Diagnoses Anaplastic astrocytoma C71.9
--- NOTE | 2023-10-15 18:04 | Hospitalist Progress Note ---
Date of Service October 15, 2023 Assessment & Plan (1) Anaplastic astrocytoma: Plan: 47-year-old man with history of anaplastic astrocytoma and seizure disorder admitted with seizures and a fall. 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 This would be the provoking factor for his increased seizures. [facility] neurology and neurosurgery were consulted via our ER provider. Recommendations for steroid taper, brain MRI - continue Decadron taper as ordered - currently 2 mg IV every 8 hours, will reduce to every 12 hours tomorrow, seems he could transition to oral after that - cognition headache right-sided weakness all improved on dexamethasone - obtained brain MRI with and without contrast, highly concerning for progression of astrocytoma - consulted palliative care - Dr. Garcia follows him in the office. in the past Talib has not wanted additional surgery or radiation. He met with Dr. Guille sosa from palliative care today who knows him well, his concerns are loss of functional status so he may be willing to consider further treatment depending on the expected quality of life following proposed treatments, he is willing for transfer to [place] at this time if that is necessary. transferring out of the local area does make it more difficult for his family to support him - discussed with neurosurgeon Dr. Hewitt at [place]. Dr Jamison also aware of situation - pushed to PACS images of brain MRI, they will review and let me know if there are any surgical options - got messages from neurosurgery they are not able to see the images the images in their PACS, I called [place] transfer center RN today who was able to put me through to someone at [facility] radi[facility], the problem is the physicians on [facility] need to make a request with [facility]ology to bring our images into the [facility] PACS. This can be done with a phone call, I communicated the details to the neurosurgeon - went back for second visit with Charly terry and updated him and his family in the room (2) Seizure: Plan: Recurrent seizures secondary to vasogenic edema and brain tumor. Seizure precautions ordered. He is on Keppra which was increased from 750 mg twice daily to 1000 mg twice daily today - his surgeon reports that he tolerates increased Keppra poorly and has anger and other side effects - if no other further seizures we can try decreasing his Keppra back to baseline dosing, after expected improvement in vasogenic edema from the Decadron continue valproic acid, with low therapeutic level - appreciate neurology consultation by Dr. Brady. reviewed recommendations, ordered UA which is negative for UTI - continue same medications (3) History of pulmonary embolus (PE): Plan: he had a PE in 2020 when he was under chemo therapy and radiation for his astrocytoma apixaban was held on advice of neurosurgery at [facility] no signs or symptoms of DVT or PE at this time, obtained a lower extremity duplex which shows no active DVTs there are some superficial venous thrombosis with chronicity - potentially may need IVC filter however, it is safe to defer this for this weekend and reassess once the treatment plan and goals of care become more c larified Plan right forehead lacerationlateral eyebrow sutures placed in ED on 10/12, remove in 5 days ordered bacitracin daily to suture line Multiple skin wounds from his fall. We have consulted wound care nurse. Dyslipidemia continue statin therapy. History of BPH - cont tamsulosin CTA of the neck demonstrated a 6 x 3.6 right thyroid lobe nodule. This needs followed up on an outpatient basis per standard of care with ultrasound. DVT prophylaxis: See above, apixaban held because of brain tumor, cont DVT prophylaxis with enoxaparin Admission and Anticipated Discharge Date Admission Date: October 13, 2023 Subjective Talib is feeling better, he no longer has the pressure-like headache and his right-sided weakness has improved he has not really been out of bed to test it yet no further seizures seen in a.m. and again in afternoon, large family gathered at the bedside including his brother and [id number], 2 other brothers visiting from [place] Physical Exam Physical Exam: PHYSICAL EXAMINATION Last 24h vital signs reviewed, see documentation in flowsheet General: comfortable appearing, no distress, eating breakfast HEENT: mild periorbital ecchymosis on right with some eyelid puffiness pupils round and equal, sclerae anicteric, no conjunctival injection, moist mucus membranes laceration right lateral eyebrow with sutures in place well opposed no drainage - continues to look good Lungs: Normal respiratory effort. Clear to auscultation bilaterally. No RRW Heart: Regular rate and rhythm, no murmurs. No JVD Abdomen: Soft, nontender, nondistended. Bowel sounds present. Extremities: Warm, dry, well-perfused. No extremity edema. Neuro: Alert and oriented x 4, face symmetric, moves 4 extremities well, right upper extremity and right lower extremity weakness - subtle now 4/5. baseline right visual field deficit Psych: Normal affect and behavior Results & Data Results & Data Vital Signs (Past 12 Hours) Vital Signs Temp Pulse Pulse Resp BP BP Pulse Ox 10/15/23 14:56 36.6 C 67 18 122/78 95 10/15/23 14:42 77 10/15/23 11:00 36.4 C L 76 16 128/76 97 10/15/23 08:00 59 L 10/15/23 07:00 36.9 C 60 16 119/76 95 O2 Del Method 10/15/23 14:56 Room Air 10/15/23 14:42 10/15/23 11:00 Room Air 10/15/23 08:00 10/15/23 07:00 Room Air PG Care Time/CCT Total # of Minutes Spent Total Time Spent with Patient: I personally spent 35 minutes on clinical care today, I spent an additional 40 minutes on coordination of care including multiple conversations with staff at [facility] and updating Dwyer family Prolonged Care Time 40 minutes as above [id number] [place] [address] SUB INP/OBS CARE 2/35MIN Patient Type Established History Expanded Problem Focused Exam Expanded Problem Focused Medical Decision Making Moderate Complexity Diagnoses Anaplastic astrocytoma C71.9 Seizure R56.9 History of pulmonary embolus (PE) Z86.711
[2023-10-15] MEDS: dexAMETHasone 2 MG in SYRINGE 0 ML IV SCH (19:41)
--- NOTE | 2023-10-16 08:29 | Neurology Progress Note ---
Date of Service October 16, 2023 Assessment & Plan (1) Anaplastic astrocytoma: Admission and Anticipated Discharge Date Admission Date: October 13, 2023 Subjective pt this morning doing well. no headache. no new deficits. Results & Data Vital Signs (Past 12 Hours) Vital Signs Temp Pulse Pulse Resp BP Pulse Ox O2 Del Method 10/16/23 07:38 49 L 10/16/23 07:00 36.6 C 53 L 16 116/73 98 Room Air 10/16/23 03:05 36.8 C 50 L 18 102/63 96 Room Air 10/15/23 22:59 36.7 C 67 18 128/78 95 Room Air 10/15/23 21:47 90 Neuro: Mental: AOx4, fluent speech, normal comprehension, no apraxia, no L/R confusion, mild double simultagnosia. mood much improved. CN: Full EOM, symmetric face, Motor: No abnormal movements, Coord: mild dysmetria with rt hand FNF. normal left FNF. gait ; normal. 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 He had mri done 09/22/2023, comparison appears there is progression of his edema (noted similar enhancing lesions that was noted last month). pt on decadron tapering schedule and showing good response to it. His neurosurgeon from [place] (Dr. Hewitt) accepted pt but he preferred to stay here at [facility]. pt overall doing better and stable. Recommendations: continue decadron taper, i agree that after today, he can likely transition to oral steroid, prednisone, 80mg daily x3 days, 60mg daily x3 days, 40mg daily x 3 days, 20mg daily. he would need to discuss with [facility] oncology/neurosurgeon as to how long to continue steroid and will need repeat imaging near future. plan is to have him f/u with [facility] neurosurgeon as outpt when discharged. continue increased dose of keppra 1000mg bid and depakote 500mg bid (level 49) as now. his Neurosurgeon mentioned that he has hx of being irritable on higher dose of keppra but currently pt doing well without side effect and also being on depakote likely helps with mood. At this point, no need to change med dosing. continue supportive care as now. he can have routine f/u with Neurology clinic (Jenna and Dr. Monterroso). Chart reviewed I have spent more than 50% educating patient about potential diagnosis and neurological evaluation and coordinating care with patient's treatment team. Total time spent (including chart review and coordination of care): 35 min (this includes chart review). PG Care Time/CCT Total # of Minutes Spent Total Time Spent with Patient: Total time spent is greater than 50% in coordination of care (as documented) at patient's floor/unit and/or counseling patient: Coding Level of Care Code 53584 SUB INP/OBS CARE 2/35MIN Diagnoses Anaplastic astrocytoma C71.9
[2023-10-16 10:48] VITALS: RESP 18
--- NOTE | 2023-10-16 15:01 | Hospitalist Progress Note ---
Date of Service October 16, 2023 Assessment & Plan (1) Anaplastic astrocytoma: Plan: 47-year-old man with history of anaplastic astrocytoma and seizure disorder admitted with seizures and a fall. 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 This would be the provoking factor for his increased seizures. [facility] neurology and neurosurgery were consulted via our ER provider. Recommendations for steroid taper, brain MRI - continue Decadron taper as ordered - now down to 2 mg every 12 hours, discussed with neurology should be able to change on to oral - cognition headache right-sided weakness all improved on dexamethasone, no further seizures - obtained brain MRI with and without contrast, highly concerning for progression of astrocytoma - consulted palliative care - Dr. Garcia follows him in the office. in the past Talib has not wanted additional surgery or radiation. He met with Dr. Garcia from palliative care today who knows him well, his concerns are loss of functional status so he may be willing to consider further treatment depending on the expected quality of life following proposed treatments, he is willing for transfer to [place] at this time if that is necessary. transferring out of the local area does make it more difficult for his family to support him - will contact his neurosurgery team at [place] Dr. Hewitt, Dr Jamison tomorrow after weekend, I did not receive any updates today - same plan of care today, continue working on mobility (2) Seizure: Plan: Recurrent seizures secondary to vasogenic edema and brain tumor. Seizure precautions ordered. He is on Keppra which was increased from 750 mg twice daily to 1000 mg twice daily today - his surgeon reports that he tolerates increased Keppra poorly and has anger and other side effects - doing well so far continue valproic acid, with low therapeutic level - appreciate neurology consultation by Dr. Brady. reviewed recommendations, ordered UA which is negative for UTI - continue same medications (3) History of pulmonary embolus (PE): Plan: he had a PE in 2020 when he was under chemo therapy and radiation for his astrocytoma apixaban was held on advice of neurosurgery at [facility] no signs or symptoms of DVT or PE at this time, obtained a lower extremity duplex which shows no active DVTs there are some superficial venous thrombosis with chronicity - potentially may need IVC filter however, it is safe to defer this for this weekend and reassess once the treatment plan and goals of care become more clarified Plan right forehead lacerationlateral eyebrow sutures placed in ED on 10/12, has been 5 days May remove in next 24 hours ordered bacitracin daily to suture line Multiple skin wounds from his fall. We have consulted wound care nurse. Dyslipidemia continue statin therapy. History of BPH - cont tamsulosin CTA of the neck demonstrated a 6 x 3.6 right thyroid lobe nodule. This needs followed up on an outpatient basis per standard of care with ultrasound. DVT prophylaxis: See above, apixaban held because of brain tumor, cont DVT prophylaxis with enoxaparin Admission and Anticipated Discharge Date Admission Date: October 13, 2023 Subjective has continued to slowly improve no further headaches or head pressure right visual field deficit has improved probably back at baseline right-sided weakness has improved, he has been able to walk around and get in the chair no seizures since admission Physical Exam Physical Exam: PHYSICAL EXAMINATION Last 24h vital signs reviewed, see documentation in flowsheet General: sitting in bed awake HEENT: mild periorbital ecchymosis on right with some eyelid puffiness pupils round and equal, sclerae anicteric, no conjunctival injection, moist mucus membranes laceration right lateral eyebrow with sutures in place well opposed no drainage - unchanged Lungs: Normal respiratory effort. Heart: deferred Abdomen: nondistended Extremities: Warm, dry, well-perfused. No extremity edema. Neuro: Alert and oriented x 4, face symmetric, moves 4 extremities well, mild right-sided visual field deficit tested by confrontation, mild right upper extremity and right lower extremity weakness - both improved today. no pronator drift and no lower extremity drift Psych: Normal affect and behavior Results & Data Results & Data Vital Signs (Past 12 Hours) Vital Signs Temp Pulse Pulse Resp BP Pulse Ox O2 Del Method 10/16/23 14:34 36.6 C 56 L 18 123/74 96 Room Air 10/16/23 10:48 36.5 C 57 L 18 120/78 96 Room Air 10/16/23 07:38 49 L 10/16/23 07:00 36.6 C 53 L 16 116/73 98 Room Air 10/16/23 03:05 36.8 C 50 L 18 102/63 96 Room Air PG Care Time/CCT Total # of Minutes Spent Total Time Spent with Patient: Total time spent is greater than 50% in coordination of care (as documented) at patient's floor/unit and/or counseling patient: Coding Level of Care Code 76404 SUB INP/OBS CARE Diagnoses Anaplastic astrocytoma C71.9 Seizure R56.9 History of pulmonary embolus (PE) Z86.711
[2023-10-17] MEDS: dexAMETHasone 2 MG in SYRINGE 0 ML IV SCH (00:11)
[2023-10-17 07:27] VITALS: TEMP 97.7; O2SAT 99
[2023-10-17] MEDS: predniSONE 20 MG TAB PO SCH (08:44)
[2023-10-17 14:48] VITALS: BP 116/67; PULSE 61
--- NOTE | 2023-10-17 18:43 | Discharge Summary ---
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 This would be the provoking factor for his increased seizures. [facility] neurology and neurosurgery were consulted via our ER provider. Recommendations for steroid taper, brain MRI - obtained brain MRI with and without contrast, highly concerning for progression of astrocytoma - treated with Decadron IV tapering dosehad significant resolution of his symptoms with this. No further seizures after admission, right-sided weakness significantly improved now minimal, headache resolved, worsened right visual field deficit improved to previous baseline, cognition significantly improved - PT and OT in the hospital, independent at discharge without ongoing therapies needs - consulted palliative care - Dr. Garcia follows him in the office. in the past Talib has not wanted additional surgery or radiation. He met with Dr. Garcia from palliative care who knows him well, his concerns are loss of functional status so he may be willing to consider further treatment depending on the expected quality of life following proposed treatments - discussed with Dr. Jamison at [facility] today who had an opportunity to review the brain MRI films with the neurosurgeon. They propose minimally invasive t reatment with thermotherapy as well as biopsy to define future treatment options. They will schedule follow-up with him as outpatient. - recommended continuing oral dexamethasone 4 mg p.o. twice daily and not tapering further. They do prefer dexamethasone over other steroids. Discharged home with his family, he will stay at his brother's house temporarily and well and they are arranging his apartment to be moved to a ground-floor unit at his building. they are also obtaining a life alert which has the capability to detect seizures. he does not drive. (2) Seizure: Recurrent seizures secondary to vasogenic edema and brain tumor. Seizure precautions ordered. He is on Keppra which was increased from 750 mg twice daily to 1000 mg twice daily today - his surgeon reports that he tolerates increased Keppra poorly and has anger and other side effects - doing well so far, VPA recently started and will provide some mood stabilization continue valproic acid, with low therapeutic level - neurologist consulted this admission, he will continue to follow-up with [facility] [place] (3) History of pulmonary embolus (PE): he had a PE in 2020 when he was under chemo therapy and radiation for his astrocytoma apixaban was held on advice of neurosurgery at [facility] based on ED conversation no signs or symptoms of DVT or PE at this time, obtained a lower extremity duplex which shows no active DVTs there are some superficial venous thrombosis with chronicity -discussed with Dr. Jamison recommended resuming apixaban Plan right forehead lacerationlateral eyebrow sutures placed in ED on 10/12, has been 5 days healing well removed prior to discharge Dyslipidemia continue statin therapy. History of BPH - cont tamsulosin CTA of the neck demonstrated a 6 x 3.6 right thyroid lobe nodule. This needs followed up on an outpatient basis per standard of care with ultrasound. Notes For Next Care Provider [facility] will be contacting him to schedule follow up appointment for recurrent brain tumor CTA of the neck demonstrated a 6 x 3.6 right thyroid lobe nodule. This needs followed up on an outpatient basis per standard of care with ultrasound. Decision whether to pursue this based on overall prognosis. Medication Changes From Visit dexamethasone 4 mg po bid and increased dose of keppra Admission HPI Per Admitting Provider This is a pleasant 47-year-old gentleman has a known history of a anaplastic astrocytoma. And a history of a seizure disorder. Early in the day had a breakthrough seizure. He presented to the ER. He was treated and discharged to home. On the way home he pulled his car to the side of the road to urinate and had a fall outside his car and was brought in as a trauma alert back to the ER today. Upon representation to the ER the patient had a CT of his brain which was grossly abnormal. Interpreted is status postcraniotomy with redemonstration of left parietal resection bed. 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 We are initially contacted for admission here at [facility]. We recommended making contact with [facility] neurology and neurosurgery. The ER provider made contact with subspecialist there. They are recommending admit to [facility] with a steroid taper. We have consulted local neurology and we spoke with local neurology personally by phone who will see the patient on consultation while here. Discharge Exam PHYSICAL EXAMINATION Last 24h vital signs reviewed, see documentation in flowsheet General: sitting in bed awake HEENT: mild periorbital ecchymosis on right with some eyelid puffiness resolving, laceration healing well Lungs: Normal respiratory effort. Heart: deferred Abdomen: nondistended Extremities: Warm, dry, well-perfused. No extremity edema. Neuro: Alert and oriented x 4, face symmetric, moves 4 extremities well, detailed exam from 10/15: mild right-sided visual field deficit tested by confrontation, mild right upper extremity and right lower extremity weakness 4+/5. no pronator drift and no lower extremity drift Psych: Normal affect and behavior Updated Medication List Medication Instructions Recorded Confirmed Type apixaban 5 mg tablet 5 mg PO AMHS 03/25/23 10/13/23 History Medical Thc 1 dose PO UD PRN Anxiety 04/12/23 10/13/23 History multivitamin 1 tab PO QAM 04/12/23 10/13/23 History atorvastatin 10 mg tablet 10 mg PO QAM 06/16/23 10/13/23 History tamsulosin 0.4 mg capsule (Flomax) 0.4 mg PO QAM 06/16/23 10/13/23 History dexamethasone 4 mg tablet 4 mg PO BID17 #60 tabs 10/17/23 Rx divalproex 500 mg tablet,delayed 500 mg PO BID #0 tabs 10/17/23 10/13/23 Rx release levetiracetam 500 mg tablet 1,000 mg (2 x 500 mg) PO BID #120 10/17/23 Rx (Keppra) tabs Hospital Stay Data Consultations 10/13/23 17:26 ED Decision to Admit Stat 10/13/23 18:14 Consult Neurology Routine 10/13/23 20:08 Consult Palliative Care Stat Diagnostic Imagining Performed 10/13/23 15:33 CT angio head w con Stat CT angio neck with con Stat CT face [CT facial bones wo con] Stat CT head/brain wo con Stat 10/14/23 08:16 MRI Brain [MR brain wo/w con] Urgent US venous duplex leg [US venous doppler LE BI] Routine Chest X-Ray 10/13/23 15:33 SINGLE VIEW CHEST CLINICAL HISTORY: Neurologic deficit. Stroke like symptoms. FINDINGS: An AP, portable, upright chest radiograph is obtained. No prior studies are available for comparison at the time of dictation. The cardiomediastinal silhouette is unremarkable. The lungs and pleural spaces are clear. No pneumothorax is seen. The bony thorax is grossly intact. IMPRESSION: No active disease in the chest. ACT 112: Negative or not required by law. Electronically signed by: Milad Rouse M.D. 10/13/2023 4:[address] 10/13/23 15:33 CT facial bones wo con CLINICAL HISTORY: fall hit faceeight sided weak TECHNIQUE: Multidetector row helical CT of the maxillofacial bones was performed without administration of intravenous contrast, and processed with bone and soft tissue algorithms. Coronal and sagittal reformations were obtained. Automated dose lowering techniques and/or adjustment according to patient size were utilized for this exam. Comparison: None available at the time of this dictation. FINDINGS: Nasal bones are normal. The mandible is intact. The temporomandibular joints are anatomically aligned. Pterygoid plates are intact. Zygomatic arches are intact. The globes are normal and symmetric, without proptosis, obvious disruption or lens dislocation. Soft tissue swelling is seen in the right periorbital region with some radiodensities noted. The orbital nuno are intact. The retrobulbar fat is without evidence of disruption. Extraocular muscles are normal and symmetric. Optic nerve sheath complexes are normal in course and caliber. Imaged portions of the paranasal sinuses and mastoid air cells are clear. IMPRESSION: Right periorbital soft tissue swelling is seen with some radiodensities which may represent foreign bodies. No evidence of acute fracture. ACT 112: Negative or not required by law. Electronically signed by: Jayce Joya M.D. 10/13/2023 3:[address] 10/13/23 15:33 CT OF THE HEAD WITHOUT CONTRAST CLINICAL HISTORY: neuro deficit, acute stroke suspected COMPARISON STUDY: Head CT and MRI of the brain March 25, 2023. MRI of the brain September 22, 2023. TECHNIQUE: Helical axial images of the head were obtained without IV contrast. Automated exposure control was utilized for the study. A dose lowering technique was utilized adhering to the principles of ALARA. FINDINGS: No acute intracranial hemorrhage is present. There are postoperative findings consistent with left parietal craniotomy. Left parietal volume loss was shown on prior exam. There is an adjacent left parietal 3.9 cm abnormality. This is centrally hypodense with peripheral hyperdensity. This has increased when compared to MRI of September 22, 2023. There is mild mass effect with minimal sulcal effacement. Adjacent hypodensity favors vasogenic edema. There is no evidence for herniation. Ventricular system is unremarkable. Basal cisterns are patent. There are no obstructive fluid collections. There are no calvarial fractures. IMPRESSION: 1. No acute intracranial hemorrhage. No CT evidence for acute infarct. 2. Status post left parietal craniotomy with redemonstration of a left parietal resection bed. Increase in an adjacent 3.9 cm abnormality within the left parietal lobe since MRI of September 22, 2023. 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 Adjacent vasogenic edema. ACT 112: Negative or not required by law. Electronically signed by: Aldo Candelaria M.D. 10/13/2023 4:16 PM Head CTA 10/13/23 15:33 CT ANGIOGRAM OF THE BRAIN CLINICAL HISTORY: Neurological deficit. Stroke like symptoms. History of astrocytoma. COMPARISON STUDY: Unenhanced CT of the brain performed concurrently on 10/13/2023 . MRI of the brain dated 03/25/2023. TECHNIQUE: Following the IV administration of 118 cc of Optiray 320, CT angiogram of the brain was performed from the skull base to the vertex. Images are reviewed in the axial, sagittal, and coronal planes. 3-D MIPS images are created and assessed. IV contrast was administered without complication. A dose lowering technique was utilized adhering to the principles of ALARA. FINDINGS: Brain parenchyma: There is postsurgical change from left posterior parietal resection. There is a round 3 cm focus showing loss of weston-white matter differentiation in the left posterior parietal lobe on axial image #50 of 81. This does not show discernible postcontrast enhancement. There is no evidence of hemorrhage or midline shift. There is no evidence of acute territorial ischemia noting angiographic phase technique. No extra-axial fluid collection is seen. Ventricles, sulci, and cisterns: Normal in configuration. CT angiogram of the brain: The internal carotid arteries are widely patent, as are the anterior and middle cerebral arteries. The vertebrobasilar system and posterior cerebral arteries are widely patent. The right vertebral artery is dominant. There is a left posterior communicating artery. There is no aneurysm, high-grade stenosis, or focal vessel cutoff identified throughout the intracranial circulation. Dural sinuses: Clear as visualized. Orbits: The bony orbits are intact. The orbital contents are normal as visualized. Sinuses and mastoids: The paranasal sinuses are clear. The mastoid air cells are well pneumatized. Calvarium: There is postsurgical change from left posterior craniotomy. No destructive calvarial lesion is seen. IMPRESSION: 1. There is no evidence of hemorrhage, midline shift, or acute territorial ischemia noting angiographic phase technique. 2. There is postsurgical change from left parietal lobe resection. 3. There is an approximately 3 cm focus showing loss of weston-white matter diffe rentiation in the left posterior parietal lobe in the region of the resection margin. This did not show discernible postcontrast enhancement. Although this could potentially represent a focus of ischemia, the appearance is more suspicious for recurrent/residual neoplasm. A contrast enhanced MRI of the brain is recommended for further assessment. 4. There is no aneurysm, high-grade stenosis or focal vessel cutoff seen throughout the intracranial circulation. ACT 112: Negative or not required by law. Electronically signed by: Milad Rouse M.D. 10/13/2023 4:21 PM Neck CTA 10/13/23 15:33 CT ANGIOGRAPHY OF THE NECK WITH CONTRAST CLINICAL HISTORY: neuro deficit, acute stroke suspected COMPARISON STUDY: None. Technique: CT angiography of the carotid and vertebral arteries was obtained using Optiray and 3D reconstruction on an independent workstation. NASCET criteria was utilized. Automated exposure control was utilized for the study. A dose lowering technique was utilized adhering to the principles of ALARA. CT DOSE: 2177.25 mGy.cm Findings: Visualized portions of the lung apices are unremarkable. Incidental note is made of a 6 x 3.6 cm heterogeneously enhancing right lobe thyroid nodule. There is no cervical lymphadenopathy. No cervical spinal fractures are present. The bilateral common carotid, cervical internal carotid and vertebral arteries are patent. There is no stenosis or dissection within the neck. There is no aneurysm within the neck. IMPRESSION: 1. No abnormalities within the bilateral common carotid, cervical internal carotid or vertebral arteries. 2. An indeterminate 6 x 3.6 cm right lobe thyroid nodule. ACT 112: Negative or not required by law. Electronically signed by: Aldo Candelaria M.D. 10/13/2023 4:23 PM Brain MRI 10/14/23 08:16 MRI OF THE BRAIN COMBO CLINICAL HISTORY: Astrocytoma status post resection. COMPARISON STUDY: CT of the brain dated 10/13/2023. MRI of the brain dated 03/25/2023. TECHNIQUE: MRI of the brain was performed utilizing various T1 and T2-weighted sequences in the axial, sagittal, and coronal planes. Contrast-enhanced sequen oswaldo were acquired following the administration of 10 cc of Gadavist. FINDINGS: Brain parenchyma: Left posterior parietal encephalomalacia is consistent with a site of prior surgical resection. There is edema centered within the left posterior parietal lobe which contains 2 peripheral enhancing lesions. The larger lesion measures 1.8 cm as seen on coronal postcontrast image #20 and the smaller lesion measures 0.7 cm seen on coronal image #19. These findings are highly suggestive of tumor recurrence. There is extensive surrounding abnormal signal on the FLAIR sequences which crosses the corpus callosum and also involves the right posterior parietal cortex. The overall region of edema within the left posterior hemisphere measures approximately 8 cm and extends into the temporal an occipital lobes. There is mild effacement of the overlying cortical sulci. No midline shift is observed. No hemorrhage is seen. There is no restricted diffusion typical for acute ischemia. Subcentimeter foci of faintly restricted diffusion within the region of edema are likely related to tumor. No extra-axial fluid collection is seen. The cerebellar tonsils are normal in configuration. Ventricles, sulci, and cisterns: Normal in configuration. See above. Pituitary and sella: Unremarkable. Intracranial vasculature: Normal flow voids are maintained at the skull base. Orbits: The bony orbits are grossly intact. Orbital contents are normal in appearance. Sinuses and mastoids: Clear. Calvarium: There is postsurgical change from left posterior parietal craniotomy. No destructive calvarial lesion is seen. Cervical cord: Partially visualized cervical spinal cord is normal in morphology and signal intensity. IMPRESSION: 1. There is no hemorrhage, midline shift, or evidence of acute ischemia. 2. There is extensive signal abnormality and edema centered in the left posterior parietal lobe cortex adjacent to the resection margin with 2 peripherally enhancing lesions identified. This is highly suggestive of tumor recurrence, and abnormal FLAIR signal involves the left temporal and occipital lobes, and also involves/crosses the corpus callosum to involve the right parietal cortex. This likely represents diffuse infiltrative tumor. ACT 112: Negative or not required by law. Electronically signed by: Milad Rouse M.D. 10/14/2023 10:01 AM Venous Doppler Study 10/14/23 08:16 ULTRASOUND BILATERAL LOWER EXTREMITY VENOUS CLINICAL HISTORY: Cancer history. History of deep venous thrombosis. COMPARISON STUDY: No priors. TECHNIQUE: Real-time, grayscale, and color Doppler sonography of the deep veins of the right and left lower extremity was performed from the inguinal crease to the calf. Compression and augmentation were utilized. FINDINGS: Right lower extremity: There is no sonographic evidence of deep venous thrombosis in the right lower extremity. The common femoral, superficial femoral, and popliteal veins are patent and normally compressible. The greater saphenous vein and the profunda femoris vein at the junction with the common femoral vein are clear. The visualized calf veins are patent. There is age indeterminant nonocclusive superficial venous thrombosis in the profunda femoris vein extending from the mid thigh to the knee. Age indeterminate newly occlusive superficial thrombus is also seen in the lesser saphenous vein extending from the posterior knee to the mid calf. Left lower extremity: There is no sonographic evidence of deep venous thrombosis in the left lower extremity. The common femoral, superficial femoral, and popliteal veins are patent and normally compressible. The greater saphenous vein and the profunda femoris vein at the junction with the common femoral vein are clear. The visualized calf veins are patent. IMPRESSION: 1. There is no sonographic evidence of deep venous thrombosis in the right or left lower extremity. 2. There are long segments of age indeterminant superficial venous thrombosis in the right lower extremity as above. ACT 112: Negative or not required by law. Electronically signed by: Milad Rouse M.D. 10/14/2023 10:43 AM Pending Results Patient Have Any Pending Studies at Discharge: No Discharge Instructions Given to Patient (Per Discharging Provider) You were evaluated for increased seizures. Unfortunately it appears that you have brain tumor recurrence. Brain swelling around the tumor caused a lot of the symptoms like increased seizures, increased right sided weakness, headache. Fortunately these symptoms responded well to steroids -take dexamethasone 4 mg bid to reduce the brain swelling - there is no plan to taper the dose right now -you already got a big dose of steroid this morning so its ok to start the decadron tomorrow morning -we increased the keppra to 1000 mg bid -[facility] said it is safe to resume your eliquis - you can start it tonight -neurosurgery at [facility] should be calling you soon to schedule follow up to discuss thermotherapy - a minimally invasive treatment - and biopsy -continue following up with neurology locally It was a pleasure taking care of you in the hospital, Stefania Tamez MD Total Time Total Time Spent Total Time Spent (In Minutes): I personally spent: 40 minutes today on clinical care activities including: reviewing chart notes and vital signs discussion with bank consultant(s) examining and counseling the patient counseling the patient's family writing orders, discharge instructions documentation Coding Level of Care Code 76872 INP/OBS DISCH >30 MIN Diagnoses Anaplastic astrocytoma C71.9 Seizure R56.9 History of pulmonary embolus (PE) Z86.711
[2023-10-17] MEDS ORDERED: APIXABAN 5 MG TABLET PO SCH (21:00)
[2023-10-18] MEDS ORDERED: dexAMETHasone 4 MG TAB PO SCH (09:00)
[2023-10-20] MEDS ORDERED: predniSONE 20 MG TAB PO SCH (09:00)
[2023-10-23] MEDS ORDERED: predniSONE 20 MG TAB PO SCH (09:00)
[2023-10-26] MEDS ORDERED: predniSONE 20 MG TAB PO SCH (09:00)
== END 2023-10-17 14:48 | disposition home or self-care (01) | DRG 54 ==
LOC: ED 15:20 → 4W 18:17 → SUATTDRO 18:17 → 4W 19:59

== ENCOUNTER 2023-11-19 15:07 | Observation (INO) ==
--- NOTE | 2023-11-19 15:21 | Emergency Department Note ---
Impression & Plan Brain mass, Cerebral edema, Slurred speech, Ambulatory dysfunction ED Provider Note NAME: MARLEN CARRASCO AGE: 47 SEX: M : 1975 ARRIVES VIA: Ambulance INFORMANT: Patient ED PROVIDER(S): Az Kelsey DO CHIEF COMPLAINT: Trouble with his speech HPI: Patient is a 47-year-old male with a past medical history of anaplastic astrocytoma, seizures, cerebral edema who presents to the ER as he has had a decline in his speech since last night as well as his ability to get around. Patient denies any headache or change in vision. He notes he was unable to get down the stairs today. No chest pain or shortness of breath. He denies any focal weakness or numbness but he believes his speech is improving currently. Additional history obtained by family who is present at bedside who notes that he has been paranoid today. ADDITIONAL HISTORY OBTAINED: Per HPI Chronic Medical/Social Conditions Affecting Care: Per HPI PAST MEDICAL HISTORY:See Below PAST SURGICAL HISTORY:See Below FAMILY HISTORY:See Below SOCIAL HISTORY:See Below HOME MEDICATIONS:See Below ALLERGIES:See Below VITALS:See Below PHYSICAL EXAMINATION: GENERAL: Sitting up in bed, alert, well appearing, well nourished, no distress, non-toxic EYE EXAM: normal conjunctiva. PERRL and EOM's intact. OROPHARYNX: no exudate, no erythema, lips, buccal mucosa, and tongue normal and mucous membranes are moist NECK: supple, no nuchal rigidity, no adenopathy, non-tender LUNGS: Clear to auscultation. Normal chest wall mechanics HEART: no murmurs, S1 normal and S2 normal ABDOMEN: abdomen soft, non-tender, normo-active bowel sounds, no masses, no rebound or guarding. UPPER EXTREMITIES: upper extremities are grossly normal. LOWER EXTREMITIES: No pitting edema. NEURO EXAM: Normal sensorium, cranial nerves II-XII intact, slurred speech, no weakness of arms, no weakness of legs. No drift. Finger to nose intact. Gross sensation intact MEDICAL DECISION MAKING: Patient is a 47-year-old male who presents to the ER with a past medical history of brain mass with anaplastic astrocytoma who presents to the ER for slurred speech and trouble ambulating. IV was established blood work is obtained. Labs show mild leukocytosis of 13.8. No significant anemia. BMP with a mild hypokalemia 3.3. LFTs and bilirubin were unremarkable. Lipase was normal. UA was ordered but not obtained prior to admission. CT of the head actually shows improvement of edema/mass. Discussed with Dr. Brady from neurology who worked with him last time upon admission and and was agreeable to having him admitted here at [facility] for additional workup. His slurred speech has been improving. CT angios were not obtained as he just recently had these and this was discussed with neurology and they agreed as well. Discussed case with the hospitalist for further evaluation management treatment. Of note patient also appears to be slightly paranoid as he feels as though people are trying to find information about his medical care and he hears people talking in the room. Consults/Care Managements Discussions: Per MDM Triage Nursing notes reviewed. Limited review of prior medical records performed Vital Signs: reviewed and remarkable for no significant abnormalities Differential diagnosis: Differential Diagnosis includes but is not limited to ischemic Stroke, hemorrhagic stroke, bells palsy, mass, neoplasm, migraine headache, seizure, subarachnoid hemorrhage, TIA, and transient global amnesia. ER treatment provided: See below Diagnostics interpreted by me include EKG and cardiac monitoring as listed below: -Cardiac Monitoring: An order was placed for continuous cardiac monitoring. The monitor shows a rate of 90 with sinus rhythm. -ECG: none -Laboratory studies:Interpreted by me as stated above in MDM and shown below. 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 treated at [facility] [place]. follows with Neurology at [facility] [place]. Hyperlipidemia no current medications Medical History (Updated 11/19/23 @ 18:47 by Az Kelsey DO) On anticoagulant therapy managed by pcp Tonic-clonic seizure last seizure was 03/25/23 (treated inpatient at [facility]) after having his seizure medication discontinued at the time. no problems since restarting medication. Surgical History History of carpal tunnel release bilateral S/P excision of lipoma History of craniotomy to resection brain tumor in 03/2020 at [facility] [place]. Family History Other No family history of adverse response to anesthesia Social History Smoking Status: Never smoker Tobacco Type: Cigarettes Second Hand Exposure: No; Do You Dip or Chew Tobacco: No; Hx Alcohol Use: No Hx Substance Use: Yes Last Used Substance Other:: 04/13/23 Substance Use Type Other:: [facility] Preferred Language: Liberian Communication Ability: Effective Jacqu[employer]oom Card Changer Required: No Beliefs That Will Affect Care: Evangelical Current Living Situation: Alone Current Living Situation Comment: pt states he plans to move in w/ his brother to assist w/ healthcare needs Feels Safe at Home: Yes Assistive Devices: None Allergies Allergies Allergy/AdvReac Type Severity Reaction Status Date / Time No Known Allergies Allergy Verified 11/09/23 16:13 Home Meds Home Medications Medication Instructions Recorded Confirmed apixaban 5 mg tablet 5 mg PO AMHS 03/25/23 11/19/23 Medical Thc 1 dose PO UD PRN Anxiety 04/12/23 11/19/23 multivitamin 1 tab PO QAM 04/12/23 11/19/23 atorvastatin 10 mg tablet 10 mg PO QAM 06/16/23 11/19/23 tamsulosin 0.4 mg capsule (Flomax) 0.4 mg PO UD 06/16/23 11/19/23 dexamethasone 4 mg tablet 4 mg PO UD 11/19/23 11/19/23 divalproex 500 mg tablet,delayed 500 mg PO UD 11/19/23 11/19/23 release levetiracetam 1,000 mg tablet 1,000 mg PO BID 11/19/23 11/19/23 Results & Data (ED) Vital Signs Vital Signs - 24 hr 11/19/23 15:21 11/19/23 15:21 11/19/23 15:21 Temperature 36.9 C Temperature Source Oral Pulse Rate 96 H Pulse Rate [Apical] Respiratory Rate 20 Respiratory Effort / Characteristics Non-Labored Respiratory Depth Normal Blood Pressure 131/88 Blood Pressure [Right Arm] Blood Pressure Mean 102 Blood Pressure Mean [Right Arm] Pulse Oximetry 98 98 98 Oxygen Delivery Method Room Air Room Air Room Air Sepsis Recent Fever Within 48 Hours No Sepsis New/Unexplained Change in Mental Status Yes Sepsis Action Taken by Nursing No Action Required 11/19/23 16:13 11/19/23 16:58 Temperature Temperature Source Pulse Rate 82 Pulse Rate [Apical] 88 Respiratory Rate 20 Respiratory Effort / Characteristics Non-Labored Respiratory Depth Normal Blood Pressure Blood Pressure [Right Arm] 159/100 H Blood Pressure Mean Blood Pressure Mean [Right Arm] 119 Pulse Oximetry 100 Oxygen Delivery Method Room Air Sepsis Recent Fever Within 48 Hours Sepsis New/Unexplained Change in Mental Status Sepsis Action Taken by Nursing Laboratory Data 11/19/23 15:13 11/19/23 15:13 Lab Results 11/19/23 Range/Units 15:13 WBC 13.85 H (4.8-10.8) K/ul RBC 4.66 L (4.70-6.10) M/uL Hgb 14.4 (14.0-18.0) g/dl Hct 40.7 L (42.0-52.0) % MCV 87.3 (80.0-100.0) fL MCH 30.9 (25.0-34.0) pg MCHC 35.4 (32.0-36.0) g/dL RDW Std Deviation 43.1 (36.4-46.3) fL RDW Coeff of Aj 13.7 (11.5-14.5) % Plt Count 242 (130-400) K/uL MPV 9.1 L (9.4-12.4) fL Immature Gran % (Auto) 0.6 % Neut % (Auto) 68.8 % Lymph % (Auto) 20.4 % [place] % (Auto) 9.2 % Eos % (Auto) 0.9 % Baso % (Auto) 0.1 % Neut # (Auto) 9.52 H (1.40-6.50) K/uL Lymph # (Auto) 2.83 (1.20-3.40) K/uL [place] # (Auto) 1.28 H (0.11-0.59) K/uL Eos # (Auto) 0.12 (0.00-0.50) K/uL Baso # (Auto) 0.02 (0.00-0.20) K/uL Immature Gran # (Auto) 0.08 (0.01-0.20) K/uL Sodium 137 (136-145) mmol/L Potassium 3.3 L (3.5-5.1) mmol/L Chloride 101 (98-107) mmol/L Carbon Dioxide 27 (21-32) mmol/L Anion Gap 9 (3-11) BUN 20 (6-23) mg/dl Creatinine 0.69 (0.6-1.4) mg/dl Est Cr Clr Drug Dosing Not Reportable Est GFR ( Amer) 130.1 ml/min Est GFR (Non-Af Amer) 112.3 ml/min BUN/Creatinine Ratio 29.0 H (10-20) Glucose 94 (70-99(Fasting)) mg/dl Calcium 9.1 (8.6-10.3) mg/dl Magnesium 1.8 (1.7-2.4) mg/dl Total Bilirubin 1.0 (0.2-1.0) mg/dl AST 71 H (13-39) U/L ALT 57 H (7-52) U/L Alkaline Phosphatase 32 L (34-104) U/L Total Protein 6.2 (6.0-8.3) gm/dl Albumin 4.1 (3.4-5.0) gm/dl Globulin 2.1 L (2.5-4.0) gm/dl Albumin/Globulin Ratio 2.0 (0.9-2) Lipase 33 (11-82) U/L Procalcitonin Cancelled Prolactin 11.75 ng/ml Anaplasma Smear See Comment Babesia Smear See Comment Lyme Disease Screen Negative (Negative) Administered Medications Discontinued Medications Acetaminophen (Ofirmev) 1,000 mg in 100 mls @ 400 mls/hr IV NOW STA Stop: 11/19/23 17:32 Last Infusion: 11/19/23 18:17 Dose: Infused Documented By: Admin: 11/19/23 17:41 Dose: 400 mls/hr Documented By: JAZ Imaging Data Radiologist's Impression: Chest X-Ray 11/19/23 15:19 XR chest 1V portable CLINICAL HISTORY: Chest pain, nonspecific TECHNIQUE: Single frontal radiograph of the chest was obtained. Comparison: Comparison is made to chest radiograph 10/13/2023 FINDINGS: No lines and tubes are seen. The cardiomediastinal silhouette is normal. The lungs are clear. No evidence of pleural effusion or pneumothorax. IMPRESSION: No acute chest disease. ACT 112: Negative or not required by law. Electronically signed by: Jayce Joya M.D. 11/19/2023 4:[address] 11/19/23 15:19 CT head/brain wo con CLINICAL HISTORY: brain mass trouble talking Technique: Contiguous axial CT images of the head were acquired from the base of the skull to the vertex without intravenous contrast administration. Images were viewed in brain, subdural and bone windows. Automated dose lowering techniques and/or adjustment according to patient size were utilized for this exam. Comparison: Comparison is made to CT head 10/13/2023 Findings: Postsurgical changes of prior left parietal craniotomy. Previously noted mass lesion is possibly slightly decreased in size. Imaged portions of the paranasal sinuses and mastoid air cells are clear. The orbits appear normal. There are no acute fractures of the calvaria or scalp swelling. Impression: No acute abnormalities. Postsurgical changes of left parietal craniotomy with possibly slightly decreased soft tissue mass compared to prior exam. ACT 112: Negative or not required by law. Electronically signed by: Jayce Joya M.D. 11/19/2023 4:08 PM Discharge Plan Visit Data Chief Complaint: Seizure Stated Complaint: POSSIBLE SEIZURE, MH ISSUES ED Provider: Az Kelsey Discharge Problem: Brain mass, Cerebral edema, Slurred speech, Ambulatory dysfunction Forms Stand Alone Forms: [facility] Prescriptions Prescriptions: No Action atorvastatin 10 mg tablet 10 mg PO QAM tamsulosin [Flomax] 0.4 mg capsule 0.4 mg PO UD Rx Instructions: 0.4 mg po qam last filled 07/04 30 day supply Medical Thc 1 dose PO UD PRN (Reason: Anxiety) multivitamin Tablet 1 tab PO QAM apixaban 5 mg Tablet 5 mg PO AMHS dexamethasone 4 mg tablet 4 mg PO UD Rx Instructions: 4 mg po bid filled 11/15 3 day supply. divalproex 500 mg tablet,delayed release (DR/EC) 500 mg PO UD Rx Instructions: 500 mg po bid last filled 09/24 60 day supply levetiracetam 1,000 mg tablet 1,000 mg PO BID Referrals Referrals: Lesley Melgoza, DO [Primary Care Provider] -
[2023-11-19 15:47] LABS: Basophils # (auto) 0.02 K/uL (0.00-0.20); Basophils % (auto) 0.1 %; Eosinophils # (auto) 0.12 K/uL (0.00-0.50); Eosinophils % (auto) 0.9 %; Hematocrit (blood only) 40.7 % (42.0-52.0); Hemoglobin 14.4 g/dl (14.0-18.0); Immature Granulocytes # (auto) 0.08 K/uL (0.01-0.20); Immature Granulocytes % (auto) 0.6 %; Lymphocytes # (auto) 2.83 K/uL (1.20-3.40); Lymphocytes % (auto) 20.4 %; Mean Corpuscular Hemoglobin 30.9 pg (25.0-34.0); Mean Corpuscular Hgb Conc 35.4 g/dL (32.0-36.0); Mean Corpuscular Volume 87.3 fL (80.0-100.0); Mean Platelet Volume 9.1 fL (9.4-12.4); Monocytes # (auto) 1.28 K/uL (0.11-0.59); Monocytes % (auto) 9.2 %; Neutrophils # (auto) 9.52 K/uL (1.40-6.50); Neutrophils % (auto) 68.8 %; Platelet Count 242 K/uL (130-400); RDW Coefficient of Variation 13.7 % (11.5-14.5); RDW Standard Deviation 43.1 fL (36.4-46.3); Red Blood Count 4.66 M/uL (4.70-6.10); White Blood Count 13.85 K/ul (4.8-10.8)
[2023-11-19 15:55] LABS: Alanine Aminotransferase 57 U/L (7-52); Albumin Level 4.1 gm/dl (3.4-5.0); Alkaline Phosphatase 32 U/L (34-104); Anion Gap 9 (3-11); Aspartate Aminotransferase 71 U/L (13-39); Blood Urea Nitrogen 20 mg/dl (6-23); Calcium 9.1 mg/dl (8.6-10.3); Carbon Dioxide 27 mmol/L (21-32); Chloride 101 mmol/L (98-107); Est GFR (African American) 130.1 ml/min; Est GFR (Non-African American) 112.3 ml/min; Globulin 2.1 gm/dl (2.5-4.0); Glucose 94 mg/dl (70-99(Fasting)); Lipase 33 U/L (11-82); Potassium 3.3 mmol/L (3.5-5.1); Sodium 137 mmol/L (136-145); Total Protein 6.2 gm/dl (6.0-8.3)
--- NOTE | 2023-11-19 16:02 | XRay Report ---
XR chest 1V portable CLINICAL HISTORY: Chest pain, nonspecific TECHNIQUE: Single frontal radiograph of the chest was obtained. Comparison: Comparison is made to chest radiograph 10/13/2023 FINDINGS: No lines and tubes are seen. The cardiomediastinal silhouette is normal. The lungs are clear. No evid ence of pleural effusion or pneumothorax. IMPRESSION: No acute chest disease. ACT 112: Negative or not required by law. Electronically signed by: Jayce Joya M.D. 11/19/2023 4:00 PM
--- NOTE | 2023-11-19 16:09 | CT Scan Report ---
CT head/brain wo con CLINICAL HISTORY: brain mass trouble talking Technique: Contiguous axial CT images of the head were acquired from the base of the skull to the jose adithya without intravenous contrast administration. Images were viewed in brain, subdural and bone [facility]. Automated dose lowering techniques and/or adjustment according to patient size were utilized for this exam. Comparison: Comparison is made to CT head 10/13/2023 Findings: Postsurgical changes of prior left parietal craniotomy. Previously noted mass lesion is possibly slig htly decreased in size. Imaged portions of the paranasal sinuses and mastoid air cells are clear. The orbits appear normal. There are no acute fractures of the calvaria or scalp swelling. Impression: No acute abnormalities. Postsurgical changes of left parietal craniotomy with possibly slightly decre ased soft tissue mass compared to prior exam. ACT 112: Negative or not required by law. Electronically signed by: Jayce Joya M.D. 11/19/2023 4:08 PM
--- NOTE | 2023-11-19 16:51 | History & Physical Report ---
Date of Service November 19, 2023 Assessment & Plan (1) Seizure: Plan: Patient may have sustained an unwitnessed seizure on the morning of 11/18 around 9 AM Altered mental status, tongue bite lambert, and bruising on the knees and left flank Leukocytosis at 13.[address] Head CT without acute findings Brain MRI ordered, pending Prolactin ordered, pending Lactate ordered, pending Procalcitonin ordered, pending Magnesium level ordered, pending Seizure precautions Patient recently moved into independent living ?Patient not taking medication as prescribed Ativan 2 mg IV q5m x 3 max doses as needed for active seizure-like activity EEG ordered for the morning of 11/19 Neurology consult appreciated Case management consulted at family's request to see will likely require assisted living moving forward Keppra increased from 1000->1500mg IV BID Hold Valproate A.m. CBC, CMP, mag (2) Slurred speech: Plan: Speech therapy consult appreciated Dysphagia screen N.p.o. 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 for now pending speech eval VTE PPx: Eliquis History of Present Illness Chief Complaint: Garbled speech, AMS, seizures Primary Care Provider: DO Charly Ortega is a 47-year-old male with PMH of anaplastic astrocytoma, HLD, cerebral edema, and seizures. He presented on 11/18 for altered mental status. Patient is a poor historian at time of admission. Patient's brother (Reid), and oxzndq-dj-ops (Betty) are at the bedside provide the history. They report that he was previously living with them, but is now living on his own. [id number] reports that he began acting strange yesterday while at the grocery store and was more hyperverbal with her. Last known well was at 8 PM when the patient sent them a picture of him playing guitar outside the house. They then got a call around 9 AM, after neighbors called police due to banging in house followed by screaming. The family believes he had a grand-mal seizure around 8:30-9:00 AM this morning and bit his tongue. Patient also says he might of had a smaller one last night. These were both unwitnessed seizures. He denies any falls or injuries to the head or neck. No history of stroke to the family's knowledge. Patient has been managing his own medication at home. He reports he is still taking his medication, but believes the timing is off. He is unsure if he took them today. While family has not noticed facial droop or unilateral deficits, they confirm slurred speech and drooling. Patient does have a history of a blood clot, and has swelling in his right leg greater than his left. He also has a new purpuric rash on his right posterior ankle that is new according to the family. According to family, there is been an acute change in cognitive baseline since he last night. Patient denies smoking, tobacco use, recent alcohol use. Patient is hypertensive at 159/100 at time of admission; vitals otherwise stable. ED course: ROS: Patient endorses altered mental status, slurred speech, incoherent thought processes, swelling in the lower extremities bilaterally, pain in feet. Patient denies fever, chills, night-sweats, chest pain, SOB, pleuritic CP, abdominal pain, or N/V/D. Addendum: Spoke to both the patient's brother and [id number] outside the room. Patient's [id number] reports that she found multiple supplements in the home. She also reports that patient's neighbor has reported he has been up at night screaming and banging around, and may be having visual/auditory hallucinations. He is also been more depressed recently, and has said things such as "I am sorry" and that "I do not want to be a burden anymore". They are concerned that Allergies Allergy/AdvReac Type Severity Reaction Status Date / Time No Known Allergies Allergy Verified 11/09/23 16:13 Home Medications Medication Instructions Recorded Confirmed Type apixaban 5 mg tablet 5 mg PO AMHS 03/25/23 11/19/23 History Medical Thc 1 dose PO UD PRN Anxiety 04/12/23 11/19/23 History multivitamin 1 tab PO QAM 04/12/23 11/19/23 History atorvastatin 10 mg tablet 10 mg PO QAM 06/16/23 11/19/23 History tamsulosin 0.4 mg capsule (Flomax) 0.4 mg PO UD 06/16/23 11/19/23 History dexamethasone 4 mg tablet 4 mg PO UD 11/19/23 11/19/23 History divalproex 500 mg tablet,delayed 500 mg PO UD 11/19/23 11/19/23 History release levetiracetam 1,000 mg tablet 1,000 mg PO BID 11/19/23 11/19/23 History Past Med/Surg History Problem List (Updated 11/19/23 @ 19:48 by Kaz Agarwal PA-C) Depression Edema of right lower extremity Transaminitis History of seizures Ambulatory dysfunction (Acute) Slurred speech (Acute) Cerebral edema (Acute) Brain mass (Acute) Encounter for pre-operative examination Seizure (Acute) Visual changes 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 treated at [facility]. follows with Neurology at [facility]. Hyperlipidemia no current medications Medical History (Updated 11/19/23 @ 19:48 by Kaz Agarwal PA-C) On anticoagulant therapy managed by pcp Tonic-clonic seizure last seizure was 03/25/23 (treated inpatient at [facility]) after having his seizure medication discontinued at the time. no problems since restarting medication. Surgical History History of carpal tunnel release bilateral S/P excision of lipoma History of craniotomy to resection brain tumor in 03/2020 at [facility]. 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 Beliefs That Will Affect Care: Christianity Current Living Situation: Alone Current Living Situation Comment: pt states he plans to move in w/ his brother to assist w/ healthcare needs Feels Safe at Home: Yes Assistive Devices: None Review of Systems 2 Review of Systems: See HPI above Physical Exam 2 Physical Exam: General: no acute distress; non-toxic appearing; well-nourished; cooperative; SpO2 100% on RA HEENT: normocephalic, atraumatic; no scleral icterus; PERRLA; vision and hearing intact; bite lambert noted on the tongue Neck: supple; no lymphadenopathy; trachea midline Skin: warm, dry without signs of tenting; bruising on the knees bilaterally, and bruising/lambert on the left upper back and flank CV: chest wall NTP; RRR; S1/S2 normal; no murmurs/rubs/gallops; pulses intact and symmetric at radial, DP, and PT Lungs: no acute respiratory distress; symmetrical chest wall expansion; clear breath sounds across all lung wade w/o adventitious sounds; no wheezing ABD: Soft, NTP; BS present; no rebound/guarding; no distention MSK: no tics or fasciculations; RLE swelling > left, nonerythematous; purpuric rash noted on the right ankle Neuro: Oriented to name, but not oriented to date of /month; incoherent thought processes; slurred/garbled speech; no facial droop; patient reports that sensation is intact and symmetric in the face/UE/LE bilaterally Results & Data Results & Data Vital Signs (Past 12 Hours) Vital Signs Temp Pulse Resp BP Pulse Ox O2 Del Method 11/19/23 16:13 82 11/19/23 15:21 98 Room Air 11/19/23 15:21 98 Room Air 11/19/23 15:21 36.9 C 96 H 20 131/88 98 Room Air Laboratory Results Abnormal lab results 11/19/23 Range/Units 15:13 WBC 13.85 H (4.8-10.8) K/ul RBC 4.66 L (4.70-6.10) M/uL Hct 40.7 L (42.0-52.0) % MPV 9.1 L (9.4-12.4) fL Neut # (Auto) 9.52 H (1.40-6.50) K/uL Clark # (Auto) 1.28 H (0.11-0.59) K/uL Potassium 3.3 L (3.5-5.1) mmol/L BUN/Creatinine Ratio 29.0 H (10-20) AST 71 H (13-39) U/L ALT 57 H (7-52) U/L Alkaline Phosphatase 32 L (34-104) U/L Globulin 2.1 L (2.5-4.0) gm/dl Diagnostic Findings Chest X-Ray 11/19/23 15:19 XR chest 1V portable CLINICAL HISTORY: Chest pain, nonspecific TECHNIQUE: Single frontal radiograph of the chest was obtained. Comparison: Comparison is made to chest radiograph 10/13/2023 FINDINGS: No lines and tubes are seen. The cardiomediastinal silhouette is normal. The lungs are clear. No evidence of pleural effusion or pneumothorax. IMPRESSION: No acute chest disease. ACT 112: Negative or not required by law. Electronically signed by: Jayce Joya M.D. 11/19/2023 4:[address] 11/19/23 15:19 CT head/brain wo con CLINICAL HISTORY: brain mass trouble talking Technique: Contiguous axial CT images of the head were acquired from the base of the skull to the vertex without intravenous contrast administration. Images were viewed in brain, subdural and bone windows. Automated dose lowering techniques and/or adjustment according to patient size were utilized for this exam. Comparison: Comparison is made to CT head 10/13/2023 Findings: Postsurgical changes of prior left parietal craniotomy. Previously noted mass lesion is possibly slightly decreased in size. Imaged portions of the paranasal sinuses and mastoid air cells are clear. The orbits appear normal. There are no acute fractures of the calvaria or scalp swelling. Impression: No acute abnormalities. Postsurgical changes of left parietal craniotomy with possibly slightly decreased soft tissue mass compared to prior exam. ACT 112: Negative or not required by law. Electronically signed by: Jayce Joya M.D. 11/19/2023 4:08 PM ECG Additional Comments: ECG revealed NSR at 84 bpm; QTc 458 Code Status & VTE Plan Code Status Conditional code (long discussion with patient's brother/POA and patient [id number]. He has had palliative care discussions in the past, and reports that hewhile he would be okay with intubation in the setting of status epilepticushe would not want CPR or free of defibrillation under any circumstances; intubation only outside of cardiac arrest) VTE Prophylaxis Plan VTE Prophylaxis will be ordered: Yes Supervising Physician Co-Signing Physician Notes Patient seen and examined, chart reviewed, case discussed with Kaz Agarwal PA-C and I agree with the assessment and plan as above except as otherwise noted Labs and images reviewed 47-year-old male with past medical history of anaplastic astrocytoma, recurrent seizures, PE on Eliquis, BPH, hyperlipidemia who presents to the ER for decline in speech, and decline in ambulatory ability. On admitting assessment patient does have evidence of tongue laceration suspicious for seizure activity, banging and then yelling afterwards was heard but falls/user was not observed. Was altered yesterday and seemed hyperverbal, and today around 9 AM patient was found banging and yelling in his home. Family is concerned he may have had seizures, although these were not witnessed there was screaming heard from neighbors overnight. Case was reviewed with neurology by the ER, patient is recommended for MRI. Angiography was not recommended to be repeated given recent imaging.Collateral obtained from family. Concerns for SI. Per reports from neighbor Charly has been yelling at people to get out of home in the middle of the night and suspect that he has been hallucinating. Has confessed to family that he has not been taking medications and has been trying herbal supplements instead. AMS ? Due to seizure, astrocytoma, or toxic ingestion CThead: No acute findings. Postsurgical changes with slightly decreased soft tissue mass compared to prior. Seizure precautions The patient has been taking his antiseizure medications. He is prescribed Divalproex and Keppra. Levels pending Ativan on-call for seizure EEG pending MRI improved from prior, no acute findings, no enlargement of mass or acute/worsening edema Medical THC held Hallucinations/depression/anxiety/SI Concern for hallucinations as above, patient with depression and adjustment disorder, possible suicidal ideation and gestures. Family did find a mixture of pills and some herbs mixed together Psych liaison consulted. One-to-one ordered. Management of toxic ingestion as noted Plant ingestion On review of imaging from patient's family discussed with family may have had attempted ingestion of toxic plants. ?Water hemlock/poison hemlock/pokeweed ingestion. No nausea/vomiting/diarrhea. Did have an episode of vomiting prior to admission. He is not bradycardic. He does not have a metabolic acidosis. EKG is normal sinus rhythm, QT 458. Creatinine is normal. CK is pending, no evidence of rhabdo. Reportedly with an episode of vomiting tonight, no nausea/vomiting since arriving in the ER Reviewed poison control. Recommend treating as unknown plant ingestion. Given mild elevation of LFTs which is new recommend 21-hour NAC protocol. Ordered and discussed with pharmacy. EKG trended every 8 hours. INR pending. LFTs trended History of seizure Switch to Keppra 1.5 g every 12, double Prolex held due to transaminitis. Seizure precautions. Ativan as needed for rescue PG Care Time/CCT Total # of Minutes Spent Total Time Spent with Patient: Total time spent is greater than 50% in coordination of care (as documented) at patient's floor/unit and/or counseling patient: C[place] [address] INT INP/OBS CARE 3/75MIN Patient Type Established Medical Decision Making High Complexity Diagnoses Seizure R56.9 Slurred speech R47.81 Depression F32.A Anaplastic astrocytoma C71.9 Transaminitis R74.01 Edema of right lower extremity R60.0 Ambulatory dysfunction R26.2 History of seizures Z87.892
[2023-11-19] MEDS: ACETAMINOPHEN 1,000 MG/100 ML VIAL IV STA (17:41)
[2023-11-19 18:32] LABS: Magnesium 1.8 mg/dl (1.7-2.4)
--- NOTE | 2023-11-19 19:08 | Magnetic Resonance Report ---
MR brain wo con CLINICAL HISTORY: AMS; anaplastic astrocytoma TECHNIQUE: Multiplanar and multisequence MR images of the brain were obtained without intravenous con trast. Comparison: Comparison is made to MRI brain 10/14/2023 FINDINGS: No abnormal restricted diffusion is identified. Foci of DWI hyperintensity in the left parietal lobe corresponding to T2 shine through. The white matter is unremarkable. The ventricular system is normal in appearance. Partial visualization, the absence of IV contrast, of the previously noted left parie nba lesions. These appear grossly stable from prior exam although the dominant lesion may be slightly decreased in size. Postsurgical changes of left parietal craniotomy again noted. There is no mass ef fect or midline shift. There is no evidence of acute intraparenchymal hemorrhage. No extra axial flui d collections are seen. The corpus callosum, pituitary gland, and cerebellar tonsils appear grossly u nremarkable. Flow voids of the major intracranial arterial vessels are identified. The imaged portions of the para nasal sinuses, mastoid air cells, and orbits are unremarkable. IMPRESSION: 1. No acute abnormality and in particular no evidence of acute infarct. 2. Left parietal mass lesions are again seen with expected postsurgical changes. Evaluation is limit ed by noncontrast technique. ACT 112: Negative or not required by law. Electronically signed by: Jayce Joya M.D. 11/19/2023 7:06 PM
[2023-11-19] MEDS: POTASSIUM CHLORIDE CRTAB 20 MEQ TABCR PO STA (19:10)
[2023-11-19] MEDS: LACTATED RINGER'S 1,000 ML IV SCH (19:10)
[2023-11-19 19:27] LABS: Appearance Urine Clear (Clear); Bilirubin Urine Negative (Negative); Blood Urine Negative (Negative); Color Urine Yellow; Glucose Urine UA Negative (Negative); Ketones Urine Trace (Negative); Leukocyte Esterase Urine Negative (Negative); Nitrite Urine Negative (Negative); Protein Urine Negative (Negative); Specific Gravity Urine 1.013 (1.000-1.030); Urobilinogen Urine Negative (Negative); pH Urine 6.5 (4.5-7.5)
[2023-11-19] MEDS ORDERED: LORazepam 2 MG/1 ML VIAL IV PRN (19:30)
[2023-11-19] MEDS ORDERED: STAT IV/IM STA (21:01)
[2023-11-19] MEDS ORDERED: AcetylCYSTEINE IV 21 HR REGIMEN (>40KG) IV STA (21:01)
[2023-11-19 21:02] LABS: Amphetamines+Metham, Urine Neg (Neg); Barbiturates, Urine Neg (Neg); Benzodiazepine, Urine Neg (Neg); Cocaine, Urine Neg (Neg); Fentanyl, Urine Neg (Neg); MDMA (Ecstacy), Urine Neg (Neg); Marijuana, Urine Pos (Neg); Methadone, Urine Neg (Neg); Opiate, Urine Neg (Neg); Phencyclidine, Urine Neg (Neg)
[2023-11-19] MEDS: MAGNESIUM SULFATE / D5W 1 GM/100 ML BAG IV ONE (21:20)
[2023-11-19] MEDS: SODIUM CHLORIDE 0.9% IV SCH (21:32)
[2023-11-19] MEDS: LEVETIRACETAM IV SCH (21:32)
[2023-11-19] MEDS: APIXABAN 5 MG TABLET PO SCH (21:51)
[2023-11-19] MEDS: AcetylCYSTEINE 15,000 MG in DEXTROSE 5% 200 ML IV ONE (21:54)
[2023-11-19 22:09] LABS: Prothrombin Time 10.9 Seconds (9.0-12.0)
[2023-11-19 22:47] LABS: Acetaminophen < 3 ug/ml (10-30); Salicylate < 3.0 mg/dl (3.0-30)
--- NOTE | 2023-11-19 23:52 | Ultrasound Report ---
Exam(s): US VENOUS RIGHT LOWER EXTREMITY EXAM: US Duplex Right Lower Extremity Veins CLINICAL HISTORY: Reason for exam: DVT r/o. TECHNIQUE: Real-time duplex ultrasound scan of the right lower extremity veins integrating B-mode two-dimensional vascular structure, Doppler spectral analysis, color flow Doppler imaging and compression. COMPARISON: No relevant prior studies available. FINDINGS: Deep veins: There is nonocclusive thrombus in the deep profunda femoral vein of the right lower extremity. No DVT in the visualized common femoral or popliteal veins. The veins demonstrate otherwise normal color flow, are normally compressible, with normal phasic flow and/or augmentation response. Superficial veins: Unremarkable. No thrombus in the visualized great saphenous vein. Soft tissues: No acute findings. No popliteal cyst. IMPRESSION: Nonocclusive thrombus is noted in the profunda femoral vein of the right lower extremity. Electronically signed by: Charly Garcia MD 11/19/23 23:50 PM
[2023-11-20] MEDS: AcetylCYSTEINE 5,000 MG in DEXTROSE 5% 500 ML IV ONE (00:11)
[2023-11-20] MEDS: AcetylCYSTEINE 10,000 MG in DEXTROSE 5% 1,000 ML IV ONE (05:03)
[2023-11-20 06:08] LABS: Basophils # (auto) 0.01 K/uL (0.00-0.20); Basophils % (auto) 0.1 %; Eosinophils # (auto) 0.09 K/uL (0.00-0.50); Hematocrit (blood only) 38.4 % (42.0-52.0); Hemoglobin 13.2 g/dl (14.0-18.0); Immature Granulocytes # (auto) 0.03 K/uL (0.01-0.20); Immature Granulocytes % (auto) 0.3 %; Lymphocytes # (auto) 1.56 K/uL (1.20-3.40); Lymphocytes % (auto) 18.2 %; Mean Corpuscular Hemoglobin 30.3 pg (25.0-34.0); Mean Corpuscular Hgb Conc 34.4 g/dL (32.0-36.0); Mean Corpuscular Volume 88.3 fL (80.0-100.0); Mean Platelet Volume 8.9 fL (9.4-12.4); Monocytes # (auto) 0.82 K/uL (0.11-0.59); Monocytes % (auto) 9.6 %; Neutrophils # (auto) 6.07 K/uL (1.40-6.50); Neutrophils % (auto) 70.8 %; Platelet Count 183 K/uL (130-400); RDW Coefficient of Variation 13.5 % (11.5-14.5); RDW Standard Deviation 43.8 fL (36.4-46.3); Red Blood Count 4.35 M/uL (4.70-6.10); White Blood Count 8.58 K/ul (4.8-10.8)
[2023-11-20 06:25] LABS: Albumin Globulin Ratio 2.2 (0.9-2); Albumin Level 3.5 gm/dl (3.4-5.0); BUN Creatinine Ratio 22.4 (10-20); Creatinine Clr Calc Pharmacy 236.3 ml/min; Est GFR (African American) 149.8 ml/min; Est GFR (Non-African American) 129.2 ml/min; Globulin 1.6 gm/dl (2.5-4.0); Magnesium 1.7 mg/dl (1.7-2.4); Potassium 3.5 mmol/L (3.5-5.1); Total Protein 5.1 gm/dl (6.0-8.3)
[2023-11-20 06:31] LABS: INR 1.1 (0.9-1.1); Prothrombin Time 11.9 Seconds (9.0-12.0)
--- NOTE | 2023-11-20 07:16 | Neurology Consultation ---
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 no further seizure event. pt with good conversation and able to recognize and knew my name when I walked in. pt not sure if he had seizure. his repeat mri brain appears to be similar as recent scan. seen in our neuro clinic just last week. pt with concern for possible SI/worsening of his depression. It is unclear if he is taking all his meds as prescribed. he admits to smoking marijuana but not last few days. admission: Charly is a 47-year-old male with PMH of anaplastic astrocytoma, HLD, cerebral edema, and seizures. He presented on 11/18 for altered mental status. Patient is a poor historian at time of admission. Patient's brother (Reid), and [id number] (Betty) are at the bedside provide the history. They report that he was previously living with them, but is now living on his own. [id number] reports that he began acting strange yesterday while at the grocery store and was more hyperverbal with her. Last known well was at 8 PM when the patient sent them a picture of him playing guitar outside the house. They then got a call around 9 AM, after neighbors called police due to banging in house followed by screaming. The family believes he had a grand-mal seizure around 8:30-9:00 AM this morning and bit his tongue. Patient also says he might of had a smaller one last night. These were both unwitnessed seizures. He denies any falls or injuries to the head or neck. No history of stroke to the family's knowledge. Patient has been managing his own medication at home. He reports he is still taking his medication, but believes the timing is off. He is unsure if he took them today. While family has not noticed facial droop or unilateral deficits, they confirm slurred speech and drooling. Patient does have a history of a blood clot, and has swelling in his right leg greater than his left. He also has a new purpuric rash on his right posterior ankle that is new according to the family. According to family, there is been an acute change in cognitive baseline since he last night. Patient denies smoking, tobacco use, recent alcohol use. Patient is hypertensive at 159/100 at time of admission; vitals otherwise stable. Allergies Allergy/AdvReac Type Severity Reaction Status Date / Time No Known Allergies Allergy Verified 11/09/23 16:13 Home Medications Medication Instructions Recorded Confirmed Type apixaban 5 mg tablet 5 mg PO AMHS 03/25/23 11/19/23 History Medical Thc 1 dose PO UD PRN Anxiety 04/12/23 11/19/23 History multivitamin 1 tab PO QAM 04/12/23 11/19/23 History atorvastatin 10 mg tablet 10 mg PO QAM 06/16/23 11/19/23 History tamsulosin 0.4 mg capsule (Flomax) 0.4 mg PO UD 06/16/23 11/19/23 History dexamethasone 4 mg tablet 4 mg PO UD 11/19/23 11/19/23 History divalproex 500 mg tablet,delayed 500 mg PO UD 11/19/23 11/19/23 History release levetiracetam 1,000 mg tablet 1,000 mg PO BID 11/19/23 11/19/23 History Patient History Medical History (Updated 11/19/23 @ 19:48 by Kaz Agarwal PA-C) On anticoagulant therapy managed by pcp Tonic-clonic seizure last seizure was 03/25/23 (treated inpatient at [facility]) after having his seizure medication discontinued at the time. no problems since restarting medication. Surgical History History of carpal tunnel release bilateral S/P excision of lipoma History of craniotomy to resection brain tumor in 03/2020 at [facility] [place]. Family History Other No family history of adverse response to anesthesia Social History Smoking Status: Former smoker Tobacco Type: Cigarettes Second Hand Exposure: No; Do You Dip or Chew Tobacco: No; Hx Alcohol Use: No Hx Substance Use: Yes Last Used Substance Other:: 04/13/23 Substance Use Type Other:: medical marijuana Preferred Language: Amharic Communication Ability: Effective Hospice Music Therapy Required: No Beliefs That Will Affect Care: None Current Living Situation: Alone Current Living Situation Comment: pt states he plans to move in w/ his brother to assist w/ healthcare needs Feels Safe at Home: Yes Assistive Devices: None Exam (Neuro) Physical Exam: HEENT: normocephalic grossly Neuro: Mental: Alert, not sure of the month or year but this is likely due to his known left anaplastic astrocytoma lesion and edema. fluent speech, normal comprehension, no apraxia, no L/R confusion, no finger agnosia. Able to carry out good conversation but at times tangential thoughts. CN: PERRL, Full EOM, symmetric face, midline T/U/P, grossly full ROM neck Motor: No abnormal movements, normal tone, 5/5 t/o bilaterally Coord: intact DTR: 2+ sym b/l Gait:deferred Impression: 47 yo male with known left hemisphere Anaplastic astrocytoma with s/p surgery and recent admission for progression with edema. It is unclear if he actually had seizure. Currently no suggestion of repeat seizure. Pt appears to be back to his baseline. MRI brain appears unchanged from recent scan. Recommendations: agree with psych consult. continue keppra 1500mg po bid recommend starting gabapentin 300mg po tid, this will help with headache and also seizure prevention. as for headache management, can try prn anti-emetics and magnesium IV infusion 1gm over a hour prn for breakthrough headache. Also CGRP blockers if needed as prn use, e.g. Ubrelvy 100mg prn headache or Nurtec 75mg prn use. 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 Chart reviewed I have spent more than 50% educating patient about potential diagnosis and neurological evaluation and coordinating care with patient's treatment team. Total time spent (including chart review and coordination of care): 60 min (this includes chart review). Results & Data Vital Signs (Past 12 Hours) Vital Signs Temp Pulse Pulse Resp BP BP Pulse Ox 11/20/23 07:04 73 11/20/23 06:02 60 11/20/23 06:00 64 11/20/23 03:00 66 16 134/66 95 11/20/23 02:10 71 12 151/95 H 98 11/20/23 00:33 63 21 141/90 H 96 11/20/23 00:09 66 23 95 11/20/23 00:00 149/84 H 11/19/23 23:48 83 17 96 11/19/23 23:39 64 30 H 93 11/19/23 23:34 36.3 C L 11/19/23 23:06 65 20 94 11/19/23 23:00 155/98 H 11/19/23 23:00 155/98 H 11/19/23 23:00 65 20 155/98 H 94 11/19/23 22:57 90 16 95 11/19/23 22:57 160/114 H 11/19/23 22:57 160/114 H 11/19/23 22:57 160/114 H 11/19/23 22:45 76 17 160/114 H 94 11/19/23 22:33 63 20 95 11/19/23 22:21 66 19 96 11/19/23 22:05 73 11/19/23 21:59 115/65 11/19/23 21:51 64 16 96 11/19/23 21:50 81 20 115/65 95 11/19/23 21:50 11/19/23 21:30 97 H 24 11/19/23 21:03 70 17 11/19/23 21:01 11/19/23 20:30 78 17 11/19/23 20:27 79 20 87 L 11/19/23 19:45 71 23 11/19/23 19:30 145/102 H 11/19/23 19:30 145/102 H 11/19/23 19:30 Pulse Ox O2 Del Method O2 Del Method 11/20/23 07:04 11/20/23 06:02 11/20/23 06:00 11/20/23 03:00 Room Air 11/20/23 02:10 Room Air 11/20/23 00:33 11/20/23 00:09 11/20/23 00:00 11/19/23 23:48 11/19/23 23:39 11/19/23 23:34 11/19/23 23:06 11/19/23 23:00 11/19/23 23:00 11/19/23 23:00 Room Air 11/19/23 22:57 11/19/23 22:57 11/19/23 22:57 11/19/23 22:57 11/19/23 22:45 Room Air 11/19/23 22:33 11/19/23 22:21 11/19/23 22:05 11/19/23 21:59 11/19/23 21:51 11/19/23 21:50 Room Air 11/19/23 21:50 96 Room Air 11/19/23 21:30 11/19/23 21:03 11/19/23 21:01 94 Room Air 11/19/23 20:30 11/19/23 20:27 11/19/23 19:45 11/19/23 19:30 11/19/23 19:30 11/19/23 19:30 Room Air PG Care Time/CCT Total # of Minutes Spent Total Time Spent with Patient: Total time spent is greater than 50% in coordination of care (as documented) at patient's floor/unit and/or counseling patient: Coding Level of Care Code 29386 IN/OBS CONSULT LVL 4,60M Diagnoses Anaplastic astrocytoma C71.9
[2023-11-20] MEDS: ATORVASTATIN 10 MG TAB PO SCH (09:10)
[2023-11-20] MEDS: ONDANSETRON INJ 2 MG/ML 2 ML VIAL IV PRN (09:20)
[2023-11-20] MEDS: MAGNESIUM SULFATE / D5W 1 GM/100 ML BAG IV ONE (09:59)
--- NOTE | 2023-11-20 12:20 | Hospitalist Progress Note ---
Date of Service November 20, 2023 Assessment & Plan (1) Anaplastic astrocytoma: Plan: Dx in 02/2020 S/p surgical intervention + chemotherapy/radiation (2) History of seizures: Plan: - last seizure was 03/25/23 (treated inpatient at [facility]) after having his seizure medication discontinued at the time - no problems since restarting medication - neurology consulted: continue keppra 1500mg po bid; recommend starting gabapentin 300mg po tid to help with headache and also seizure prevention; can try prn anti-emetics, IV Mg 1gm/h prn, CGRP blockers if needed (e.g. Ubrelvy 100mg or Nurtec 75mg) (3) Adjustment disorder with depressed mood: Plan: - psych consult determined does not require 1-on-1 nor safety precautions at [facility] s time - [facility] considering mirtazapine 7.5mg HS prn for insomnia; SSRI such as fluoxetine if concern arises for major depression or SI; outpatient palliative care follow-up prn given possibility that some of his recent mood symptoms/behavior change may be due to medication changes and cancer advancement - Psych liaison to work on trying to find him an outpatient psychotherapist Plan Disposition: Admit to PCU telemetry Condition code (intubation only) VTE PPx: Eliquis Admission and Anticipated Discharge Date Admission Date: November 19, 2023 Supervising Physician Co-Signing Physician Notes I personally examined the patient and verified all torres points of history and exam, discussed case, and agree with decision making with Dr Hodgson feeling okay. No new complaints. Vitals noted, in general he is awake and alert pleasant no distress. HEENT normocephalic atraumatic mucous membranes moist. Breathing unlabored no accessory muscle use good effort. Skin without rashes pallor or icterus. Seizure/DVTsuspect due to med nonadherence, poor self-care. He appears stable at this timemostly resume home meds and keep him safe. I agree with family's assessment that he likely need some form of supervised living. Appreciate neurology and psychiatry input as well. Appreciate poison control input, appears to be doing quite well in the respect of any concerning ingestions. Pamela Parks is feeling well today, is conversant and cooperative. He reports no memory of seizing and . Acknowledges not "being good" about regularly taking meds. Denies any thoughts of self-harm/SI. Expresses appropriate concern and sadness about the brain cancer. Denies fevers, ULRICH, dizziness, chest pain, SOB, abd pain, n/v/d, pain or swelling in extremities, numbness/tingling, mood sx, or AVH. Physical Exam Physical Exam: General: no acute distress; non-toxic appearing; well-nourished; cooperative; SpO2 100% on RA HEENT: normocephalic, atraumatic; no scleral icterus; PERRLA; vision and hearing intact; bite lambert noted on the tongue Neck: supple; no lymphadenopathy; trachea midline Skin: warm, dry without signs of tenting; bruising on the knees bilaterally, and bruising/lambert on the left upper back and flank CV: chest wall NTP; RRR; S1/S2 normal; no murmurs/rubs/gallops; pulses intact and symmetric at radial, DP, and PT Lungs: no acute respiratory distress; symmetrical chest wall expansion; clear breath sounds across all lung wade w/o adventitious sounds; no wheezing ABD: Soft, NTP; BS present; no rebound/guarding; no distention MSK: no tics or fasciculations; RLE swelling > left, nonerythematous; purpuric rash noted on the right ankle Neuro: Oriented to name, but not oriented to date of /month; incoherent thought processes; slurred/garbled speech; no facial droop; patient reports that sensation is intact and symmetric in the face/UE/LE bilaterally Constitutional: NAD, WD/WN, pleasant and cooperative HEENT: NCAT, PERRL CV: RRR, no m/r/g, S1/S2 normal, Resp: CTAB, symmetrical chest rise, breathing non-labored MSK: Full ROM, no gross deformities Neuro: alert, oriented to person, CN II-XII intact, no tremors or tics Psych: Mood-affect congruent. Speech pace normal, content disorganized but coherent. Results & Data Results & Data Vital Signs (Past 12 Hours) Vital Signs Pulse Pulse Resp BP BP BP Pulse Ox 11/20/23 10:04 69 16 144/87 H 11/20/23 08:29 75 18 135/91 97 11/20/23 08:11 66 20 144/93 H 96 11/20/23 07:33 73 22 148/80 H 97 11/20/23 07:04 73 11/20/23 06:02 60 11/20/23 06:00 64 11/20/23 03:00 66 16 134/66 95 11/20/23 02:10 71 12 151/95 H 98 11/20/23 00:33 63 21 141/90 H 96 O2 Del Method 11/20/23 10:04 11/20/23 08:29 Room Air 11/20/23 08:11 Room Air 11/20/23 07:33 Room Air 11/20/23 07:04 11/20/23 06:02 11/20/23 06:00 11/20/23 03:00 Room Air 11/20/23 02:10 Room Air 11/20/23 00:33 Resident Activity Tracking Resident Involvement: Resident Care Provided Care Provided: Adult Hospital Medicine
--- NOTE | 2023-11-20 13:21 | Psychiatric Consultation ---
Date of Consultation November 20, 2023 Impression / Recommendations Impression 47 yo man with a history of anaplastic astrocytoma, HLD, cerebral edema, and seizures who was admitted medically for confusion and concern for possible suicide attempt via ingestion of plants including hemlock/poison hemlock/pokeweed ingestion vs utilizing them as supplements. Psychiatry consulted for risk assessment and recommendations. Diagnostically from psychiatric standpoint possible adjustment disorder with depressed mood versus recent emotional lability/hyperverbal speech/insomnia/erratic behavior?/?impulsivity/possible hallucinations/paranoia from recent seizures, brain cancer advancement, radiation treatment and recent course of high dose steroids. Today there is no evidence for hypomania/marielle nor major depression. Suspect his word finding difficulty and mild confusion may be due to suspected seizure prior to admission with some post-ictal confusion (family reports urinary incontinence and witnessed seizure, neurology note from today feels seizure less likely) vs from recent radiation? (unconfirmed if this gamma knife procedure occurred in late October) vs parietal lobe involvement from cancer advancement. Unfortunately we have no labwork or imaging to be able to definitively determine if he did intake ingest any plant matter and if so what his intention was. At this time his report of possible mood symptoms is certainly more minimal compared to that of his [id number]. If he did in fact ingest this material, and if it was a suicide attempt, he is convincingly and adamantly denying any current SI and reports being glad to be alive and is future-oriented, speaks of feeling well supported by family and is willing to engage in outpatient psychotherapy. At this time acute risk of self-harm is low given denial of SI, denial of any major mood symptoms, no evidence on assessment today of any acute psychosis nor paranoia and future-orientation. Chronic risk is moderate given chronic illness (cancer) but with few other non-modifiable risk factors and multiple protective factors. Therapy is likely to be one of the most significant interventions to reduce his acute and chronic risk and help him continue to focus on having the best quality of life possible. Reviewed option for SSRI medication, he declines at this time. He is interested in option for mirtazapine if he could use it as a prn for insomnia. I suspect his insomnia will improve now that he has completed his higher than baseline steroid course. Overall, I spent a total of 60 minutes with this case including review of chart records, review of labwork, direct evaluation of the patient at bedside, counseling the patient, discussion of the patient with the Nurse and with the hospitalist provider, discussion with the psychiatric liason during clinical rounds, review of collateral historian information from the family and documentation in the electronic health record. (1) Adjustment disorder with depressed mood: (2) Anaplastic astrocytoma: (3) History of seizures: (4) Word finding difficulty: (5) Insomnia: was recently on high dose steroid course Plan -Consider use of mirtazapine 7.5mg HS prn for insomnia -In future he may benefit from SSRI such as fluoxetine if concern arises for major depression or SI -From psychiatric standpoint he does not require 1-on-1 nor safety precautions at this time -Agree with ongoing outpatient palliative care follow-up prn given possibility that some of his recent mood symptoms/behavior change may be due to medication changes and cancer advancement -Psych liason to work on trying to find him an outpatient psychotherapist Psych History Identifying Data 47 yo man with a history of anaplastic astrocytoma, HLD, cerebral edema, and seizures who was admitted medically for confusion and concern for possible suicide attempt via ingestion of plants including hemlock/poison hemlock/pokew eed ingestion vs utilizing them as supplements. Psychiatry consulted for risk assessment and recommendations. Chief Complaint "Sometimes I have trouble sleeping". History of Present Illness Charly was admitted for altered mental status, confusion and behavior changes. Per chart review he was recently admitted in early October following multiple seizures with imaging showing advancement of his brain cancer. Outpatient radiation oncology note suggests recent gamma knife radiosurgery in late October to slow progression. Collateral information from his brother and mocwgn-ry-unk shared with the admitting hospitalist provider notable for concern for change in behaviors starting in recent days including an episode of strange behavior and hyperverbal speech, making loud noises and seeming to be talking out loud at night in his apartment, possible paranoia, and concern for repeat seizures. Apparently his [id number] also discovered a bag of plants and pills at his apartment and possible emesis in the toilet with some plant matter raising her concern that he may have tried to ingest the plant matter. Reports that he had been more emotionally labile and spoke at times of being a burden. Further collateral information per psychiatric kai ROSS's note from today: "Met with pt for initial consult. Consulted for depression and suspected SA by ingestion of poisonous plant. Pt is pleasant and alert and oriented x4. He stated he recalls prior to hospitalization that he began having difficulty speaking and right sided weakness. He attempted to walk down the stairs at his apartment and was unable to do so. He is unsure whether he had a seizure prior to arrival but stated when he was unable to speak or walk he started yelling and banging on the nuno in attempt to call for help. He denies any history of SA and denies any current SI. When asked about the plants in his home and if he ingested them he adamantly denies this and stated, "They grow in my garden and I just thought they looked cool. I picked them and had them on the table." He admits to feeling depressed and tearful at times due to his brain cancer but denies any SI. He did admit to stating that he feels like a burden sometimes but states he does not feel he would rather be . He denies any hx of inpatient or current psych providers/medications. He feels he has a lot of support from his family and friends and feels comfortable talking to them. PHQ9=5 with question #9=0. Pt's brother, Reid as well a pt's CHERYL present in the room. NIKHIL obtained for Reid and additional supplemental information obtained. Family stated he was recently in [place] in hopes that he would see his daughter but his ex- prevented him from seeing her. This was upsetting to him. When he returned to [place], his daughter did visit and she recently left and he was obviously upset when she needed to return to [place]. Pt's CHERYL found vomit in the toilet with remnants of the plant which made family believe he intentionally ingested plant as a means of a suicide attempt. Pt continued to deny this and stated, "If I did eat any of it, I don't remember."" In meeting with Charly this afternoon he is tired but wakes with prompting and is agreeable to speaking with me. He adamantly denies any SI nor that he i ngested any plants or medications or other substances as part of a suicide attempt. He acknowledges having some depression at times but overall feels grateful to be alive noting that many people in a similar circumstance with brain cancer quickly and he is grateful for the time he has. He uses humor at times appropriately, feels that he has a lot of support from family and speaks about his pride about his children. 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 He denies any recent auditory or visual hallucinations with exception of possibly one day recently of hearing his neighbors vs hallucination. Denies any paranoia and none evidenced during our conversation. Does report some increased difficulty sleeping for the first time in the last 1-2 weeks as previously this was not a problem for him. He denies any access to guns, denies any prior suicide attempts, denies any history of psychiatric conditions, denies hopelessness. Agrees he can feel like a burden at times but also knows that his family is there to support him and feels he would never try to kill himself or by suicide. He reports wanting to remain on his medications and to continue with treatment in hopes of allowing for ongoing quality of life. He is open to therapy noting "why not" and acknowledging that it could be nice for his family and for him to have someone else to talk to about things. Allergies Allergy/AdvReac Type Severity Reaction Status Date / Time No Known Allergies Allergy Verified 11/09/23 16:13 Home Medications Medication Instructions Recorded Confirmed Type apixaban 5 mg tablet 5 mg PO AMHS 03/25/23 11/19/23 History Medical Thc 1 dose PO UD PRN Anxiety 04/12/23 11/19/23 History multivitamin 1 tab PO QAM 04/12/23 11/19/23 History atorvastatin 10 mg tablet 10 mg PO QAM 06/16/23 11/19/23 History tamsulosin 0.4 mg capsule (Flomax) 0.4 mg PO UD 06/16/23 11/19/23 History dexamethasone 4 mg tablet 4 mg PO UD 11/19/23 11/19/23 History divalproex 500 mg tablet,delayed 500 mg PO UD 11/19/23 11/19/23 History release levetiracetam 1,000 mg tablet 1,000 mg PO BID 11/19/23 11/19/23 History Patient History Medical History On anticoagulant therapy managed by pcp Tonic-clonic seizure last seizure was 03/25/23 (treated inpatient at [facility]) after having his seizure medication discontinued at the time. no problems since restarting medication. Surgical History History of carpal tunnel release bilateral S/P excision of lipoma History of craniotomy to resection brain tumor in 03/2020 at [facility]. Family History Other No family history of adverse response to anesthesia Social History Smoking Status: Former smoker Tobacco Type: Cigarettes Second Hand Exposure: No; Do You Dip or Chew Tobacco: No; Hx Alcohol Use: No Hx Substance Use: Yes Last Used Substance Other:: 04/13/23 Substance Use Type Other:: medical marijuana Preferred Language: Pashto Communication Ability: Effective Access Clinician Required: No Beliefs That Will Affect Care: None Current Living Situation: Alone Current Living Situation Comment: pt states he plans to move in w/ his brother to assist w/ healthcare needs Feels Safe at Home: Yes Assistive Devices: Cane Physical Exam Psychiatric: Orientation: alert, oriented to person, oriented to place, oriented to time and cooperative Apperance: appropriately dressed and appropriately groomed Eye Contact: good eye contact Motor Behavior: no abnormal motor movements Speech: normal rate/rhythm/volume of speech Affect: euthymic affect Mood: + depressed mood (at times, denies currently); no anxious mood Thought Process: linear/logical thought process Thought Content: reality based without delusions Suicidal Thoughts: denies suicidal thoughts Homicidal Thoughts: denies homicidal thoughts Hallucinations: no auditory hallucinations and no visual hallucinations Cognition: recent memory grossly intact, remote memory grossly intact and attention grossly intact; + language not intact (some word finding difficulty) Insight: + limited insight Judgment: + limited judgement Vital Signs (Past 24 Hours): Last Vital Signs Temp 36.3 C L 11/19/23 23:34 Pulse 69 11/20/23 10:04 Resp 16 11/20/23 10:04 BP 144/87 H 11/20/23 10:04 Pulse Ox 97 11/20/23 08:29 O2 Del Method Room Air 11/20/23 08:29 Results & Data (PSY) Medications Administered Apixaban (Apixaban 5 Mg Tablet) 5 mg PO BID [facility] Stop: 12/19/23 20:59 Last Admin: 11/20/23 09:10 Dose: 5 mg Documented By: Admin: 11/19/23 21:51 Dose: 5 mg Documented By: BRANDON Atorvastatin Calcium (Atorvastatin 10 Mg Tab) 10 mg PO QAM INDER Stop: 12/20/23 08:59 Last Admin: 11/20/23 09:10 Dose: 10 mg Documented By: KEVEN Levetiracetam 1,500 mg/ Sodium (Chloride) 115 mls @ 460 mls/hr IV Q12H INDER Stop: 12/19/23 19:59 Last Infusion: 11/20/23 09:44 Dose: Infused Documented By: Admin: 11/20/23 09:07 Dose: 460 mls/hr Documented By: Infusion: 11/19/23 21:51 Dose: Infused Documented By: Admin: 11/19/23 21:32 Dose: 460 mls/hr Documented By: BRANDON Acetylcysteine 10,000 mg/ (Dextrose) 1,050 mls @ 62.5 mls/hr IV ONCE ONE; Protocol Stop: 11/20/23 18:55 Last Admin: 11/20/23 05:03 Dose: 62.5 mls/hr Documented By: NINOSKA Ondansetron HCl (Ondansetron Inj 2 Mg/Ml 2 Ml Vial) 4 mg IV Q6H PRN PRN Reason: Nausea Stop: 12/19/23 19:29 Last Admin: 11/20/23 09:20 Dose: 4 mg Documented By: KEVEN Coding Level of Care Code 00331 IN/OBS CONSULT LVL 4,60M Diagnoses Adjustment disorder with depressed mood F43.21 Anaplastic astrocytoma C71.9 History of seizures Z87.898 Word finding difficulty R47.89 Insomnia G47.00
[2023-11-20] MEDS: GABAPENTIN 300 MG CAP PO SCH (14:20)
[2023-11-20 18:32] LABS: Albumin Level 3.7 gm/dl (3.4-5.0); Bilirubin Direct 0.1 mg/dl (0-0.2); Bilirubin,Total 0.8 mg/dl (0.2-1.0); Total Protein 5.7 gm/dl (6.0-8.3)
[2023-11-20 18:47] LABS: Prothrombin Time 11.3 Seconds (9.0-12.0)
--- NOTE | 2023-11-20 19:50 | Billing Data ---
Date of Service November 20, 2023 Coding Level of Care Code 93333 SUB INP/OBS CARE MIN
[2023-11-21 06:49] LABS: Basophils # (auto) 0.03 K/uL (0.00-0.20); Basophils % (auto) 0.4 %; Eosinophils # (auto) 0.15 K/uL (0.00-0.50); Eosinophils % (auto) 2.2 %; Hematocrit (blood only) 39.8 % (42.0-52.0); Hemoglobin 13.7 g/dl (14.0-18.0); Immature Granulocytes # (auto) 0.03 K/uL (0.01-0.20); Immature Granulocytes % (auto) 0.4 %; Lymphocytes # (auto) 1.33 K/uL (1.20-3.40); Lymphocytes % (auto) 19.6 %; Mean Corpuscular Hemoglobin 30.6 pg (25.0-34.0); Mean Corpuscular Hgb Conc 34.4 g/dL (32.0-36.0); Mean Corpuscular Volume 88.8 fL (80.0-100.0); Mean Platelet Volume 9.1 fL (9.4-12.4); Monocytes # (auto) 0.79 K/uL (0.11-0.59); Monocytes % (auto) 11.6 %; Neutrophils # (auto) 4.47 K/uL (1.40-6.50); Neutrophils % (auto) 65.8 %; Platelet Count 195 K/uL (130-400); RDW Coefficient of Variation 13.8 % (11.5-14.5); Red Blood Count 4.48 M/uL (4.70-6.10)
[2023-11-21 07:20] LABS: Albumin Globulin Ratio 1.7 (0.9-2); Albumin Level 3.4 gm/dl (3.4-5.0); BUN Creatinine Ratio 15.4 (10-20); Bilirubin,Total 0.7 mg/dl (0.2-1.0); Calcium 8.6 mg/dl (8.6-10.3); Creatinine Clr Calc Pharmacy 178.1 ml/min; Est GFR (African American) 133.3 ml/min; Magnesium 1.9 mg/dl (1.7-2.4); Potassium 3.7 mmol/L (3.5-5.1); Total Protein 5.4 gm/dl (6.0-8.3)
--- NOTE | 2023-11-21 07:42 | Hospitalist Progress Note ---
Date of Service November 21, 2023 Assessment & Plan (1) Acute alteration in mental status: Plan: Pt presented with acute AMS change. Confusion and concern for possible suicide attempt. AMS possibly due to Marijuana intake, Pt tested positive for urine on toxico logy. patient is noncompliant with his regular medication at home. He lives alone. Pt was evaluated by Psych recommended mirtazapine 7.5mg HS/ prn for insomnia, advised No need for 1-to-1 at this time and recommended SSRI such as fluoxetine if concern arises for major depression or SI. Today patient is back to baseline AOX3. Pt is appropriate outpatient palliative care follow and in the process of placement to a care facility, case loader operator is aware and family is on board. (2) History of seizures: Plan: last seizure was 03/25/23 (treated inpatient at [facility]) after having his seizure medication discontinued at the time Evaluated by neurology: unlikely seizures. CT head cerebral shown to be improved, MRI no acute stroke. Advised no need for EEG at this admission. Advised prn anti-emetics, IV Mg 1gm/h prn, CGRP blockers if needed (e.g. 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 feeling okay. comfortable in chair. No new complaints. Vitals noted, in general he is awake and alert pleasant no distress. HEENT normocephalic atraumatic mucous membranes moist. Breathing unlabored no accessory muscle use good effort. Skin without rashes pallor or icterus. MS change - d/t possible ingestion of some plant. Appreciate neurology and psychiatry input. Appreciate poison control input - s/p NAC protocol. h/o Seizure - Depakote d/yanci d/t rise in LFT. Keppra dose increased. No concern of seizure on presentation per neuro. DVT - continue apixaban. Adjustment ds with depressed mood and chronic insomnia - Per psych - Denied SI during the interview. Likely adjustment ds with depressed mood. To consider mirtazapine 7.5mgs prn for insomnia on discharge. May benefit from SSRI if concern arises for major depression or SI. Hx of anaplastic astrocytoma resection - no concerns. Palliative care following as outpatient. Consult added. Subjective Pt says he is feeling well today sat out in chair had his breakfast. He is conversant and cooperative. oriented to time place and person however he is slightly slow to respond to the questions. Denies any thoughts of self-harm/SI says his mood is good this morning. Denies fevers, ULRICH, dizziness, chest pain, SOB, abd pain, n/v/d, pain or swelling in extremities, numbness/tingling. Pt lives alone and noncompliant with his medications so appropriate to arrange for a placement at a care facility, when discharged. Discussed with patient and he is in agreement with the plan. Review of Systems Review of Systems: HEENT: denies dizziness, congestion Cardio: denies chest pain, palpitations Resp: denies shortness of breath, cough GI: denies abdominal pain, nausea, vomiting, diarrhea : denies pain with urination, change in urinary frequency Neuro: denies new numbness, tingling, weakness Physical Exam Physical Exam: General:Alert and oriented X3, no acute distress HEENT: Normocephalic, moist oral mucosa, Cardio: Regular rate and rhythm, no murmur, Resp:Lungs clear to auscultation b/l, no wheezes or rhonchi, GI: Soft and nontender, nondistended, bowel sounds active Skin: Warm, pink, dry, Psych: Mood-affect congruence. Results & Data Results & Data Vital Signs (Past 12 Hours) Vital Signs Temp Pulse Pulse Resp BP BP Pulse Ox 11/21/23 04:44 37.1 C 80 17 121/75 96 11/20/23 23:50 36.7 C 95 H 17 152/99 H 96 11/20/23 21:42 83 O2 Del Method 11/21/23 04:44 Room Air 11/20/23 23:50 Room Air 11/20/23 21:42 Resident Activity Tracking Resident Involvement: Resident Care Provided Care Provided: Adult [facility] Medicine
[2023-11-21] MEDS: POLYETHYLENE (MIRALAX) 17 GM PACK PO SCH (12:14)
[2023-11-21] MEDS: levETIRAcetam 500 MG TAB PO SCH (20:22)
--- NOTE | 2023-11-22 05:31 | Electrocardiogram Report ---
Test Reason : Blood Pressure : */* mmHG Vent. Rate : 84 BPM Atrial Rate : 84 BPM P-R Int : 156 ms QRS Dur : 98 ms QT Int : 388 ms P-R-T Axes : 38 43 11 degrees QTcB Int : 458 ms Normal sinus rhythm Normal ECG When compared with ECG of 13-Oct-2023 15:46, No significant change was found Confirmed by Venkata Vyas ([id number]) on 11/22/2023 5:31:01 AM Referred By: Confirmed By: Venkata Vyas
--- NOTE | 2023-11-22 05:53 | Electrocardiogram Report ---
Test Reason : Blood Pressure : */* mmHG Vent. Rate : 73 BPM Atrial Rate : 73 BPM P-R Int : 150 ms QRS Dur : 92 ms QT Int : 400 ms P-R-T Axes : 21 38 28 degrees QTcB Int : 440 ms Normal sinus rhythm Normal ECG When compared with ECG of 19-Nov-2023 15:19, (unconfirmed) No significant change was found Confirmed by Venkata Vyas ([id number]) on 11/22/2023 5:53:28 AM Referred By: REFERRED SELF Confirmed By: Venkata Vyas
--- NOTE | 2023-11-22 06:02 | Electrocardiogram Report ---
Test Reason : Blood Pressure : */* mmHG Vent. Rate : 64 BPM Atrial Rate : 64 BPM P-R Int : 152 ms QRS Dur : 92 ms QT Int : 422 ms P-R-T Axes : 12 44 23 degrees QTcB Int : 435 ms Normal sinus rhythm Normal ECG When compared with ECG of 19-Nov-2023 22:05, (unconfirmed) No significant change was found Confirmed by Venkata Vyas ([id number]) on 11/22/2023 6:02:38 AM Referred By: REFERRED SELF Confirmed By: Venkata Vyas
--- NOTE | 2023-11-22 06:41 | Electrocardiogram Report ---
Test Reason : Blood Pressure : */* mmHG Vent. Rate : 70 BPM Atrial Rate : 70 BPM P-R Int : 142 ms QRS Dur : 96 ms QT Int : 412 ms P-R-T Axes : 6 55 31 degrees QTcB Int : 444 ms Normal sinus rhythm Normal ECG When compared with ECG of 20-Nov-2023 05:57, (unconfirmed) No significant change was found Confirmed by Venkata Vyas ([id number]) on 11/22/2023 6:41:34 AM Referred By: REFERRED SELF Confirmed By: Venkata Vyas
[2023-11-22 07:36] LABS: Basophils # (auto) 0.03 K/uL (0.00-0.20); Basophils % (auto) 0.4 %; Eosinophils # (auto) 0.16 K/uL (0.00-0.50); Eosinophils % (auto) 2.3 %; Hematocrit (blood only) 39.9 % (42.0-52.0); Immature Granulocytes # (auto) 0.03 K/uL (0.01-0.20); Immature Granulocytes % (auto) 0.4 %; Lymphocytes # (auto) 1.26 K/uL (1.20-3.40); Lymphocytes % (auto) 18.4 %; Mean Corpuscular Hemoglobin 31.3 pg (25.0-34.0); Mean Corpuscular Hgb Conc 35.1 g/dL (32.0-36.0); Mean Corpuscular Volume 89.1 fL (80.0-100.0); Mean Platelet Volume 9.4 fL (9.4-12.4); Monocytes # (auto) 0.87 K/uL (0.11-0.59); Monocytes % (auto) 12.7 %; Neutrophils # (auto) 4.48 K/uL (1.40-6.50); Neutrophils % (auto) 65.8 %; Platelet Count 231 K/uL (130-400); RDW Coefficient of Variation 13.5 % (11.5-14.5); RDW Standard Deviation 44.5 fL (36.4-46.3); Red Blood Count 4.48 M/uL (4.70-6.10); White Blood Count 6.83 K/ul (4.8-10.8)
[2023-11-22 08:00] LABS: Albumin Globulin Ratio 1.8 (0.9-2); Albumin Level 3.6 gm/dl (3.4-5.0); BUN Creatinine Ratio 15.7 (10-20); Bilirubin,Total 0.6 mg/dl (0.2-1.0); Calcium 8.8 mg/dl (8.6-10.3); Creatinine Clr Calc Pharmacy 165.4 ml/min; Est GFR (African American) 129.3 ml/min; Est GFR (Non-African American) 111.6 ml/min; Potassium 3.9 mmol/L (3.5-5.1); Total Protein 5.6 gm/dl (6.0-8.3)
--- NOTE | 2023-11-22 11:26 | Psychiatric Progress Note ---
Date of Service November 22, 2023 Impression / Recommendations Impression 47 yo man with a history of anaplastic astrocytoma, HLD, cerebral edema, and seizures who was admitted medically for confusion and concern for possible suicide attempt via ingestion of plants including hemlock/poison hemlock/pokeweed ingestion vs utilizing them as supplements. Psychiatry consulted for risk assessment and recommendations. Diagnostically from psychiatric standpoint possible adjustment disorder with depressed mood versus recent emotional lability/hyperverbal speech/insomnia/erratic behavior?/?impulsivity/possible hallucinations/paranoia from recent seizures, brain cancer advancement, radiation treatment and recent course of high dose steroids. A: Mood remains stable and continues to deny symptoms of depression nor SI. Less word finding difficulty today, still with some evidence of cognitive deficits including not fully oriented, seemed to repeat information a few times. Unclear what is driving some of his cognitive deficits (cancer advancement with increased pariteal lobe involvement vs deficits from recent seizures vs post radiation tx effects) and whether or not this will stabilize or worsen and given family concerns about his safety at home agree that looking into more supportive living options makes sense. However, Charly remains able to meaningfully engage and voice his preferences so encourage involving him in these decisions as much as possible and relying on family acting as surrogate decision maker only when Charly's preferences seem to be in conflict with what is felt to be safe or reasonable by the treatment team and his family in which case his decision ma yvette capacity can be further assessed if necessary. Overall, I spent a total of 40 minutes with this case including review of chart records, review of labwork, direct evaluation of the patient at bedside, counseling the patient, discussion of the patient with the hospitalist provider, discussion with the psychiatric liason during clinical rounds, review of collateral historian information from the family and documentation in the electronic health record. (1) Adjustment disorder with depressed mood: (2) Anaplastic astrocytoma: (3) History of seizures: (4) Word finding difficulty: (5) Insomnia: was recently on high dose steroid course Plan -Consider use of mirtazapine 7.5mg HS prn for insomnia -In future he may benefit from SSRI such as fluoxetine if concern arises for major depression or SI -From psychiatric standpoint he does not require 1-on-1 nor safety precautions at this time -Agree with ongoing outpatient palliative care follow-up prn given possibility that some of his recent mood symptoms/behavior change may be due to medication changes and cancer advancement -Psych liason to work on trying to find him an outpatient psychotherapist -Involve him as much as possible disposition planning discussions, decision making capacity is dynamic and can vary based on the burden of the decision being made Interval History Identifying Information 47 yo man with a history of anaplastic astrocytoma, HLD, cerebral edema, and seizures who was admitted medically for confusion and concern for possible suicide attempt via ingestion of plants including hemlock/poison hemlock/pokeweed ingestion vs utilizing them as supplements. Psychiatry consulted for risk assessment and recommendations. Chief Complaint "I'm much better, every time I have a seizure it scrambles my brain". Subjective Subjective Patient was seen & assessed and interval progress reviewed. Charly reports feeling much better and more like himself again. Notes that he finds having seizures "really scary" and that his brain feels "scrambled" afterwards but that he feels he's settling back into feeling more like himself. He continues to deny any type of ingestion, denies SI and again reiterates "I know I have challenging stuff but I like my life". Remains agreeable to outpatient therapy. Oriented to place, city, year but not to the month states it is the "third" month. Reflects that he is a social person and likes being around other people and wants to start volunteering but has struggled recently with being more isolated "like in a cocoon" and wants to try to change this by being around others more often. He recognizes he cannot live in a second floor apartment any longer given his concerns for having another seizure with muscle weakness and speech impacted and how scary it was to not be able to go down the stairs. He is hopeful he could live in an independent apartment on the first floor or may be open to an apartment with an assisted living type setting. He feels his sleep has been improving. Physical Exam Psychiatric Orientation: alert, oriented to person, oriented to place and cooperative; + not oriented to time Apperance: appropriately dressed and appropriately groomed Eye Contact: good eye contact Motor Behavior: no abnormal motor movements Speech: normal rate/rhythm/volume of speech Affect: euthymic affect Mood: no depressed mood and no anxious mood Thought Process: linear/logical thought process Thought Content: reality based without delusions Suicidal Thoughts: denies suicidal thoughts Homicidal Thoughts: denies homicidal thoughts Hallucinations: no auditory hallucinations and no visual hallucinations Cognition: recent memory grossly intact, remote memory grossly intact, attention grossly intact and language grossly intact Insight: + limited insight Judgment: + limited judgement Vital Signs (Past 24 Hours) Last Vital Signs Temp 36.6 C 11/22/23 07:12 Pulse 74 11/22/23 07:12 Resp 16 11/22/23 07:12 BP 114/75 11/22/23 07:12 Pulse Ox 97 11/22/23 07:12 O2 Del Method Room Air 11/22/23 07:12 Results & Data ([facility]) Laboratory Results Laboratory Results - last 24 hr 11/22/23 05:43 WBC 6.83 RBC 4.48 L Hgb 14.0 Hct 39.9 L MCV 89.1 MCH 31.3 MCHC 35.1 RDW Std Deviation 44.5 RDW Coeff of Aj 13.5 Plt Count 231 MPV 9.4 Immature Gran % (Auto) 0.4 Neut % (Auto) 65.8 Lymph % (Auto) 18.4 [place] % (Auto) 12.7 Eos % (Auto) 2.3 Baso % (Auto) 0.4 Neut # (Auto) 4.48 Lymph # (Auto) 1.26 [place] # (Auto) 0.87 H Eos # (Auto) 0.16 Baso # (Auto) 0.03 Immature Gran # (Auto) 0.03 Sodium 138 Potassium 3.9 Chloride 103 Carbon Dioxide 30 Anion Gap 5 BUN 11 Creatinine 0.70 Est Cr Clr Drug Dosing 165.4 Est GFR ( Amer) 129.3 Est GFR (Non-Af Amer) 111.6 BUN/Creatinine Ratio 15.7 Glucose 85 Calcium 8.8 Total Bilirubin 0.6 AST 18 ALT 38 Alkaline Phosphatase 32 L Total Protein 5.6 L Albumin 3.6 Globulin 2.0 L Albumin/Globulin Ratio 1.8 Current Inpatient Medications Current Inpatient Medications: Current Inpatient Medications Acetaminophen (Acetaminophen 500 Mg Tab) 1,000 mg PO Q8H PRN PRN Reason: Pain Stop: 12/22/23 09:23 Apixaban (Apixaban 5 Mg Tablet) 5 mg PO BID INDER Stop: 12/19/23 20:59 Last Admin: 11/22/23 08:06 Dose: 5 mg Atorvastatin Calcium (Atorvastatin 10 Mg Tab) 10 mg PO QAM INDER Stop: 12/20/23 08:59 Last Admin: 11/22/23 08:06 Dose: 10 mg Gabapentin (Gabapentin 300 Mg Cap) 300 mg PO TID INDER Stop: 12/20/23 13:59 Last Admin: 11/22/23 08:06 Dose: 300 mg Levetiracetam (Levetiracetam 500 Mg Tab) 1,500 mg PO Q12 INDER Stop: 12/21/23 20:59 Last Admin: 11/22/23 08:06 Dose: 1,500 mg Lorazepam (Lorazepam 2 Mg/1 Ml Vial) 2 mg IV Q5M PRN PRN Reason: Active seizure Ondansetron HCl (Ondansetron Inj 2 Mg/Ml 2 Ml Vial) 4 mg IV Q6H PRN PRN Reason: Nausea Stop: 12/19/23 19:29 Last Admin: 11/20/23 09:20 Dose: 4 mg Polyethylene Glycol (Polyethylene (Miralax) 17 Gm Pack) 17 gm PO DAILY INDER Stop: 12/21/23 10:14 Last Admin: 11/22/23 08:07 Dose: 17 gm
--- NOTE | 2023-11-22 13:16 | Hospitalist Progress Note ---
Date of Service November 22, 2023 Assessment & Plan (1) Acute alteration in mental status: Plan: Pt presented with acute AMS change. Confusion and concern for possible suicide attempt. Acute episode completely now. AMS was possibly due to Marijuana intake, Pt tested positive for urine on toxicology. patient is noncompliant with his regular medication at home. He lives alone. Pt was evaluated by Psych recommended mirtazapine 7.5mg HS/ prn for insomnia, advised No need for 1-to-1 at this time and recommended SSRI such as fluoxetine if concern arises for major depression or SI. Patient continued to be at baseline AOX3. Pt is appropriate outpatient palliative care and in the process of placement to a care facility, supportive employment case manager is aware and family is on board. (2) History of seizures: Plan: last seizure was 03/25/23 (treated inpatient at [facility]) after having his seizure medication discontinued at the time Evaluated by neurology: unlikely seizures. CT head cerebral shown to be imp roved, MRI no acute stroke. Advised no need for EEG at this admission. Advised prn anti-emetics, IV Mg 1gm/h prn, CGRP blockers if needed (e.g. 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 Brother at bedside. No new complaints. Wants to return home. Vitals noted, in general he is awake and alert pleasant no distress. HEENT normocephalic atraumatic mucous membranes moist. Breathing unlabored no accessory muscle use good effort. Skin without rashes pallor or icterus. MS change - d/t possible ingestion of some plant. Appreciate neurology and psychiatry input. Appreciate poison control input - s/p NAC protocol. h/o Seizure - Depakote d/yanci d/t rise in LFT. Keppra dose increased. No concern of seizure on presentation per neuro. Acute DVT - continue apixaban. Adjustment ds with depressed mood and chronic insomnia - Per psych - Denied SI during the interview. Likely adjustment ds with depressed mood. To consider m irtazapine 7.5mgs prn for insomnia on discharge. May benefit from SSRI if concern arises for major depression or SI. Hx of anaplastic astrocytoma resection - s/p radiation/chemo. Concern of cognitive deficit - Ox3 during visits. Slower responses at times. Could consider further cognitive testing as outpt. Palliative care input awaited. Dispo plan pending. Subjective Pt says he is feeling better today sitting in bed having his breakfast. AOx3. Pts brotherReid was by the bedside. Denies any thoughts of self-harm/SI says his mood is good. Denies fevers, ULRICH, dizziness, chest pain, SOB, abd pain, n/v/d, pain or swelling in extremities, numbness/tingling. Patient is awaiting placement at a care facility. Discussed with patient and his brotherReid - family onboard with the plan. Review of Systems Review of Systems: HEENT: denies dizziness, congestion Cardio: denies chest pain, palpitations Resp: denies shortness of breath, cough GI: denies abdominal pain, nausea, vomiting, diarrhea : denies pain with urination, change in urinary frequency Neuro: denies new numbness, tingling, weakness Physical Exam Physical Exam: General:Alert and oriented X3, no acute distress HEENT: Normocephalic, moist oral mucosa, Cardio: Regular rate and rhythm, no murmur, Resp:Lungs clear to auscultation b/l, no wheezes or rhonchi, GI: Soft and nontender, nondistended, bowel sounds active Skin: Warm, pink, dry, Psych: Mood-affect congruence. Results & Data Results & Data Vital Signs (Past 12 Hours) Vital Signs Temp Pulse Resp BP Pulse Ox O2 Del Method 11/22/23 07:12 36.6 C 74 16 114/75 97 Room Air
--- NOTE | 2023-11-22 18:57 | Palliative Care Consultation ---
Date of Consultation November 22, 2023 Assessment & Plan (1) Acute alteration in mental status: (2) Adjustment disorder with depressed mood: (3) Advanced care planning/counseling discussion: 80-minute [id number] advance care planning discussion was held at the bedside with Ernesto, his brother Reid, and marmho-nj-tks Betty. Clinical issues and challenges of remaining in his apartment were discussed in detail. Ernesto currently lives in an apartment that is on the second floor. Due to his issues with growing weakness and balance as well as the increased frequency of seizures, it has been very concerning for his safety to remain in a second floor apartment as there have been several times when he is felt that he may fall. Additionally, when his nausea and vomiting become problematic, or his mood becomes subdued/depressed/exacerbated worries and feelings of isolation increase, then he tends to have trouble adhering/maintaining his medication regimen. This leads to missed doses during the course of the day which ultimately leads into a pattern of multiple missed doses over the next several days to weeks. These then lead to increased frequency of seizures (the last 2 admissions have been seizure related, as while he was admitted while visiting family in [place] for an acute grand mal seizure) as well as worsening mood with psychosis, behavioral changes erratic behavior, and disruptive and somewhat aggressive tendencies. His neighbors have had to call the police a few times due to these outbursts. He is at the risk of being asked to leave the apartment complex due to the lack of consistent and appropriate behavior. Angus and Reid have been investigating assisted living options for him as here he would have more support and supervision as well as some staff who could assist with his medical needs as needed. Talib has been very vocal and very resistant to changes in his living structure and has also been very resistant to the idea of a long-term. We reviewed today the difference between assisted living and nursing homes. We also reviewed the distinct differences between remaining in environment that is safe versus unsafe. His current apartment does not have the capacity to move him to a first-floor unit. Even if he were to move to a first- floor unit, there is no way to provide him with [id number] on-call support like an assisted living center would have without him being in an actual assisted living center. There was a lot of [id number] discussion between family and patient especially between Ernesto and Aliza with regards to his safety and his mental health concerns. Because he is on SSI patient, he is does not have the means to pay for any assisted living facility that would be [id number]. We discussed that there are very few facilities in the region both in and out of the [facility], that accept SSI as a form of payment. Betty has been doing extensive research and contacting facilities in the area to see if they would accept him. She was able to make contact with an assisted living in [facility] called [facility] who are willing to accept him with SSI as payment as early as this weekend. We discussed the advantages of an assisted living facility from the safety perspective and that he would still be able to maintain private residence he with autonomy, privacy and some relative freedom including the ability to leave the assisted living to visit with family, as well as go away with family or spend weekends/vacations with them. Following a very lengthy and somewhat circular discussion, ultimately Talib agreed to an assisted living facility placement but he continues to express a desire to perhaps be able to work back to being able to live on his own in a private apartment. Talib also expressed an interest in obtaining a life alert bracelet. He notes that when he was in his escalating state with declining functional abilities, utilization of his cell phone became extremely difficult both from a visual acuity perspective as well as from a fine motor operational perspective due to the increased tremulousness and muscle weakness/coordination difficulties with seizures. He states that a life alert button whether in a bracelet or necklace form would be the easiest for him as he could then press the button for help when indicated and not try to have to coordinate both unlocking a phone, dialing for help, and then having to coordinate speech which in the throes of a seizure or postictal state are often very difficult for him. He asked if care management would be able to assist with this as he feels that it might be covered by his insurance. I advised him that I would let them know of his request and then asked that he follow-up with them tomorrow when they round. (4) Depression: (5) Palliative care by specialist: (6) Seizure: (7) Word finding difficulty: (8) Anaplastic astrocytoma: (9) Fatigue: Fatigue type: chronic, unspecified Qualified Code(s): R53.82 - Chronic fatigue, unspecified Plan as above Thank you for allowing us to participate in the ongoing care of this patient. Please page with any additional concerns. Ammon Garcia [facility] Director, Palliative Medicine History of Present Illness Reason for Consultation: continuity of care Attending Physician: Jayna Merchant MD History of Present Illness Talib is a 47-year-old gentleman known to me from outpatient palliative medicine clinic who has been admitted following a recent seizure with behavioral changes. 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 Following his last admission in October of this year, he had a follow-up with [facility] and underwent gamma knife treatment. 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 Since gamma knife treatment, he feels that his vasogenic edema has been improving and that overall he has been able to function better. This current admission was precipitated by increasing erratic behavior, psychosis, and some intolerance to medications with nausea and vomiting, ultimately leading to several days to perhaps up to a week of missed doses of medication including his seizure medication. He is seen today at the bedside together with his family, his brother Reid who is the [employer] garment turner as well as his [id number], Betty (Reid's ). Allergies Allergy/AdvReac Type Severity Reaction Status Date / Time No Known Allergies Allergy Verified 11/09/23 16:13 Home Medications Medication Instructions Recorded Confirmed Type apixaban 5 mg tablet 5 mg PO AMHS 03/25/23 11/19/23 History Medical Thc 1 dose PO UD PRN Anxiety 04/12/23 11/19/23 History multivitamin 1 tab PO QAM 04/12/23 11/19/23 History atorvastatin 10 mg tablet 10 mg PO QAM 06/16/23 11/19/23 History tamsulosin 0.4 mg capsule (Flomax) 0.4 mg PO UD 06/16/23 11/19/23 History dexamethasone 4 mg tablet 4 mg PO UD 11/19/23 11/19/23 History divalproex 500 mg tablet,delayed 500 mg PO UD 11/19/23 11/19/23 History release levetiracetam 1,000 mg tablet 1,000 mg PO BID 11/19/23 11/19/23 History Patient History Medical History On anticoagulant therapy managed by pcp Tonic-clonic seizure last seizure was 03/25/23 (treated inpatient at [facility]) after having his seizure medication discontinued at the time. no problems since restarting medication. Surgical History History of carpal tunnel release bilateral S/P excision of lipoma [place] [facility] [place] History Other No family history of adverse response to anesthesia Social History Smoking Status: Former smoker Tobacco Type: Cigarettes Second Hand Exposure: No; Do You Dip or Chew Tobacco: No; Hx Alcohol Use: No Hx Substance Use: Yes Last Used Substance Other:: 04/13/23 Substance Use Type Ot her:: medical marijuana Preferred Language: Cymro Communication Ability: Effective Web Analytics Specialist Required: No Beliefs That Will Affect Care: None Current Living Situation: Alone Current Living Situation Comment: pt states he plans to move in w/ his brother to assist w/ healthcare needs Feels Safe at Home: Yes Assistive Devices: Cane Review of Systems Review of Systems: All systems reviewed & are unremarkable except as noted in Subjective Physical Exam Physical Exam: chronically ill appearing mild bitemp wasting, healed crani scar AAOx3 able to follow simple commands neck supple no stridor resp even no wheeze or rales abd soft, NTP, BS+ strength mild diminished overall following commands Delirium screen is negative Alert to person, place and time (year = 2023) Results & Data Vital Signs (Past 12 Hours) Vital Signs Temp Pulse Resp BP BP Pulse Ox O2 Del Method 11/22/23 14:24 37.6 C H 98 H 16 131/83 96 Room Air 11/22/23 07:12 36.6 C 74 16 114/75 97 Room Air Laboratory Results 11/22/23 11/21/23 11/20/23 Range/Units 05:43 06:01 17:41 WBC 6.83 6.80 (4.8-10.8) K/ul RBC 4.48 L 4.48 L (4.70-6.10) M/uL Hgb 14.0 13.7 L (14.0-18.0) g/dl Hct 39.9 L 39.8 L (42.0-52.0) % MCV 89.1 88.8 (80.0-100.0) fL MCH 31.3 30.6 (25.0-34.0) pg MCHC 35.1 34.4 (32.0-36.0) g/dL RDW Std Deviation 44.5 45.0 (36.4-46.3) fL RDW Coeff of Aj 13.5 13.8 (11.5-14.5) % Plt Count 231 195 (130-400) K/uL MPV 9.4 9.1 L (9.4-12.4) fL Immature Gran % (Auto) 0.4 0.4 % Neut % (Auto) 65.8 65.8 % Lymph % (Auto) 18.4 19.6 % Dillon % (Auto) 12.7 11.6 % Eos % (Auto) 2.3 2.2 % Baso % (Auto) 0.4 0.4 % Neut # (Auto) 4.48 4.47 (1.40-6.50) K/uL Lymph # (Auto) 1.26 1.33 (1.20-3.40) K/uL Dillon # (Auto) 0.87 H 0.79 H (0.11-0.59) K/uL Eos # (Auto) 0.16 0.15 (0.00-0.50) K/uL Baso # (Auto) 0.03 0.03 (0.00-0.20) K/uL Immature Gran # (Auto) 0.03 0.03 (0.01-0.20) K/uL PT 11.3 (9.0-12.0) Seconds INR 1.0 (0.9-1.1) Sodium 138 140 (136-145) mmol/L Potassium 3.9 3.7 (3.5-5.1) mmol/L Chloride 103 106 (98-107) mmol/L Carbon Dioxide 30 30 (21-32) mmol/L Anion Gap 5 4 (3-11) BUN 11 10 (6-23) mg/dl Creatinine 0.70 0.65 (0.6-1.4) mg/dl Est Cr Clr Drug Dosing 165.4 178.1 Est GFR ( Amer) 129.3 133.3 ml/min Est GFR (Non-Af Amer) 111.6 115.0 ml/min BUN/Creatinine Ratio 15.7 15.4 (10-20) Glucose 85 81 (70-99(Fasting)) mg/dl Lactate (0.4-2.0) mmol/L Calcium 8.8 8.6 (8.6-10.3) mg/dl Magnesium 1.9 (1.7-2.4) mg/dl Total Bilirubin 0.6 0.7 0.8 (0.2-1.0) mg/dl Direct Bilirubin 0.1 (0-0.2) mg/dl AST 18 23 30 (13-39) U/L ALT 38 41 44 (7-52) U/L Alkaline Phosphatase 32 L 31 L 33 L (34-104) U/L Total Creatine Kinase 86 (30-223) U/L Total Protein 5.6 L 5.4 L 5.7 L (6.0-8.3) gm/dl Albumin 3.6 3.4 3.7 (3.4-5.0) gm/dl Globulin 2.0 L 2.0 L (2.5-4.0) gm/dl Albumin/Globulin Ratio 1.8 1.7 (0.9-2) Lipase (11-82) U/L Procalcitonin Prolactin ng/ml Urine Color Urine Appearance (Clear) Urine pH (4.5-7.5) Ur Specific Argyle (1.000-1.030) Urine Protein (Negative) Urine Glucose (UA) (Negative) Urine Ketones (Negative) Urine Blood (Negative) Urine Nitrite (Negative) Urine Bilirubin (Negative) Urine Urobilinogen (Negative) Ur Leukocyte Esterase (Negative) Salicylates (3.0-30) mg/dl Urine Opiates Screen (Neg) Ur Methadone, Qual (Neg) Urine Fentanyl Screen (Neg) Acetaminophen < 3 L (10-30) ug/ml Urine Barbiturates (Neg) Free Valproic Acid Total Valproic Acid Levetiracetam Ur Phencyclidine (PCP) (Neg) U Amphetamin/Meth Scrn (Neg) MDMA (Ecstasy) Screen (Neg) U Benzodiazepines Scrn (Neg) Ur Cocaine Metabolite (Neg) U Marijuana (THC) Screen (Neg) U Marijuana THC Carboxy Drug Screen Comment Ethyl Alcohol mg/dL 11.1 H (<10.0) mg/dl Anaplasma Smear Babesia Smear Babesia microti DNA PCR Lyme Disease Screen (Negative) 11/20/23 11/19/23 11/19/23 Range/Units 05:46 Unknown 21:29 WBC 8.58 (4.8-10.8) K/ul RBC 4.35 L (4.70-6.10) M/uL Hgb 13.2 L (14.0-18.0) g/dl Hct 38.4 L (42.0-52.0) % MCV 88.3 (80.0-100.0) fL MCH 30.3 (25.0-34.0) pg MCHC 34.4 (32.0-36.0) g/dL RDW Std Deviation 43.8 (36.4-46.3) fL RDW Coeff of Aj 13.5 (11.5-14.5) % Plt Count 183 (130-400) K/uL MPV 8.9 L (9.4-12.4) fL Immature Gran % (Auto) 0.3 % Neut % (Auto) 70.8 % Lymph % (Auto) 18.2 % Dillon % (Auto) 9.6 % Eos % (Auto) 1.0 % Baso % (Auto) 0.1 % Neut # (Auto) 6.07 (1.40-6.50) K/uL Lymph # (Auto) 1.56 (1.20-3.40) K/uL Dillon # (Auto) 0.82 H (0.11-0.59) K/uL Eos # (Auto) 0.09 (0.00-0.50) K/uL Baso # (Auto) 0.01 (0.00-0.20) K/uL Immature Gran # (Auto) 0.03 (0.01-0.20) K/uL PT 11.9 10.9 (9.0-12.0) Seconds INR 1.1 1.0 (0.9-1.1) Sodium 138 (136-145) mmol/L Potassium 3.5 (3.5-5.1) mmol/L Chloride 104 (98-107) mmol/L Carbon Dioxide 28 (21-32) mmol/L Anion Gap 6 (3-11) BUN 11 (6-23) mg/dl Creatinine 0.49 L (0.6-1.4) mg/dl Est Cr Clr Drug Dosing 236.3 Est GFR ( Amer) 149.8 ml/min Est GFR (Non-Af Amer) 129.2 ml/min BUN/Creatinine Ratio 22.4 H (10-20) Glucose 97 (70-99(Fasting)) mg/dl Lactate (0.4-2.0) mmol/L Calcium 8.0 L (8.6-10.3) mg/dl Magnesium 1.7 (1.7-2.4) mg/dl Total Bilirubin 1.0 (0.2-1.0) mg/dl Direct Bilirubin (0-0.2) mg/dl AST 37 (13-39) U/L ALT 43 (7-52) U/L Alkaline Phosphatase 29 L (34-104) U/L Total Creatine Kinase 698 H (30-223) U/L Total Protein 5.1 L (6.0-8.3) gm/dl Albumin 3.5 (3.4-5.0) gm/dl Globulin 1.6 L (2.5-4.0) gm/dl Albumin/Globulin Ratio 2.2 H (0.9-2) Lipase (11-82) U/L Procalcitonin Prolactin ng/ml Urine Color Urine Appearance (Clear) Urine pH (4.5-7.5) Ur Specific Argyle (1.000-1.030) Urine Protein (Negative) Urine Glucose (UA) (Negative) Urine Ketones (Negative) Urine Blood (Negative) Urine Nitrite (Negative) Urine Bilirubin (Negative) Urine Urobilinogen (Negative) Ur Leukocyte Esterase (Negative) Salicylates < 3.0 L (3.0-30) mg/dl Urine Opiates Screen Neg (Neg) Ur Methadone, Qual Neg (Neg) Urine Fentanyl Screen Neg (Neg) Acetaminophen < 3 L (10-30) ug/ml Urine Barbiturates Neg (Neg) Free Valproic Acid Total Valproic Acid Levetiracetam Ur Phencyclidine (PCP) Neg (Neg) U Amphetamin/Meth Scrn Neg (Neg) MDMA (Ecstasy) Screen Neg (Neg) U Benzodiazepines Scrn Neg (Neg) Ur Cocaine Metabolite Neg (Neg) U Marijuana (THC) Screen Pos H (Neg) U Marijuana THC Carboxy Pending Drug Screen Comment Pending Ethyl Alcohol mg/dL (<10.0) mg/dl Anaplasma Smear Babesia Smear Babesia microti DNA PCR Lyme Disease Screen (Negative) 11/19/23 11/19/23 11/19/23 Range/Units 19:14 19:03 15:13 WBC 13.85 H (4.8-10.8) K/ul RBC 4.66 L (4.70-6.10) M/uL Hgb 14.4 (14.0-18.0) g/dl Hct 40.7 L (42.0-52.0) % MCV 87.3 (80.0-100.0) fL MCH 30.9 (25.0-34.0) pg MCHC 35.4 (32.0-36.0) g/dL RDW Std Deviation 43.1 (36.4-46.3) fL RDW Coeff of Aj 13.7 (11.5-14.5) % Plt Count 242 (130-400) K/uL MPV 9.1 L (9.4-12.4) fL Immature Gran % (Auto) 0.6 % Neut % (Auto) 68.8 % Lymph % (Auto) 20.4 % Dillon % (Auto) 9.2 % Eos % (Auto) 0.9 % Baso % (Auto) 0.1 % Neut # (Auto) 9.52 H (1.40-6.50) K/uL Lymph # (Auto) 2.83 (1.20-3.40) K/uL Dillon # (Auto) 1.28 H (0.11-0.59) K/uL Eos # (Auto) 0.12 (0.00-0.50) K/uL Baso # (Auto) 0.02 (0.00-0.20) K/uL Immature Gran # (Auto) 0.08 (0.01-0.20) K/uL PT (9.0-12.0) Seconds INR (0.9-1.1) Sodium 137 (136-145) mmol/L Potassium 3.3 L (3.5-5.1) mmol/L Chloride 101 (98-107) mmol/L Carbon Dioxide 27 (21-32) mmol/L Anion Gap 9 (3-11) BUN 20 (6-23) mg/dl Creatinine 0.69 (0.6-1.4) mg/dl Est Cr Clr Drug Dosing Not Reportable Est GFR ( Amer) 130.1 ml/min Est GFR (Non-Af Amer) 112.3 ml/min BUN/Creatinine Ratio 29.0 H (10-20) Glucose 94 (70-99(Fasting)) mg/dl Lactate 1.1 (0.4-2.0) mmol/L Calcium 9.1 (8.6-10.3) mg/dl Magnesium 1.8 (1.7-2.4) mg/dl Total Bilirubin 1.0 (0.2-1.0) mg/dl Direct Bilirubin (0-0.2) mg/dl AST 71 H (13-39) U/L ALT 57 H (7-52) U/L Alkaline Phosphatase 32 L (34-104) U/L Total Creatine Kinase (30-223) U/L Total Protein 6.2 (6.0-8.3) gm/dl Albumin 4.1 (3.4-5.0) gm/dl Globulin 2.1 L (2.5-4.0) gm/dl Albumin/Globulin Ratio 2.0 (0.9-2) Lipase 33 (11-82) U/L Procalcitonin Cancelled Prolactin 11.75 ng/ml Urine Color Yellow Urine Appearance Clear (Clear) Urine pH 6.5 (4.5-7.5) Ur Specific Argyle 1.013 (1.000-1.030) Urine Protein Negative (Negative) Urine Glucose (UA) Negative (Negative) Urine Ketones Trace H (Negative) Urine Blood Negative (Negative) Urine Nitrite Negative (Negative) Urine Bilirubin Negative (Negative) Urine Urobilinogen Negative (Negative) Ur Leukocyte Esterase Negative (Negative) Salicylates (3.0-30) mg/dl Urine Opiates Screen (Neg) Ur Methadone, Qual (Neg) Urine Fentanyl Screen (Neg) Acetaminophen (10-30) ug/ml Urine Barbiturates (Neg) Free Valproic Acid Pending Total Valproic Acid Pending Levetiracetam Pending Ur Phencyclidine (PCP) (Neg) U Amphetamin/Meth Scrn (Neg) MDMA (Ecstasy) Screen (Neg) U Benzodiazepines Scrn (Neg) Ur Cocaine Metabolite (Neg) U Marijuana (THC) Screen (Neg) U Marijuana THC Carboxy Drug Screen Comment Ethyl Alcohol mg/dL (<10.0) mg/dl Anaplasma Smear See Comment Babesia Smear See Comment Babesia microti DNA PCR Pending Lyme Disease Screen Negative (Negative) Diagnostic Findings Chest X-Ray 11/19/23 15:19 XR chest 1V portable CLINICAL HISTORY: Chest pain, nonspecific TECHNIQUE: Single frontal radiograph of the chest was obtained. Comparison: Comparison is made to chest radiograph 10/13/2023 FINDINGS: No lines and tubes are seen. The cardiomediastinal silhouette is normal. The lungs are clear. No evidence of pleural effusion or pneumothorax. IMPRESSION: No acute chest disease. ACT 112: Negative or not required by law. Electronically signed by: Jayce Joya M.D. 11/19/2023 4:[address] 11/19/23 15:19 CT head/brain wo con CLINICAL HISTORY: brain mass trouble talking Technique: Contiguous axial CT images of the head were acquired from the base of the skull to the vertex without intravenous contrast administration. Images were viewed in brain, subdural and bone windows. Automated dose lowering techniques and/or adjustment according to patient size were utilized for this exam. Comparison: Comparison is made to CT head 10/13/2023 Findings: Postsurgical changes of prior left parietal craniotomy. Previously noted mass lesion is possibly slightly decreased in size. Imaged portions of the paranasal sinuses and mastoid air cells are clear. The orbits appear normal. There are no acute fractures of the calvaria or scalp swelling. Impression: No acute abnormalities. Postsurgical changes of left parietal craniotomy with possibly slightly decreased soft tissue mass compared to prior exam. ACT 112: Negative or not required by law. Electronically signed by: Jayce Joya M.D. 11/19/2023 4:08 PM Venous Doppler Study 11/19/23 17:16 Exam(s): US VENOUS RIGHT LOWER EXTREMITY EXAM: US Duplex Right Lower Extremity Veins CLINICAL HISTORY: Reason for exam: DVT r/o. TECHNIQUE: Real-time duplex ultrasound scan of the right lower extremity veins integrating B-mode two-dimensional vascular structure, Doppler spectral analysis, color flow Doppler imaging and compression. COMPARISON: No relevant prior studies available. FINDINGS: Deep veins: There is nonocclusive thrombus in the deep profunda femoral vein of the right lower extremity. No DVT in the visualized common femoral or popliteal veins. The veins demonstrate otherwise normal color flow, are normally compressible, with normal phasic flow and/or augmentation response. Superficial veins: Unremarkable. No thrombus in the visualized great saphenous vein. Soft tissues: No acute findings. No popliteal cyst. IMPRESSION: Nonocclusive thrombus is noted in the profunda femoral vein of the right lower extremity. Electronically signed by: Charly Garcia MD 11/19/23 23:50 PM Brain MRI 11/19/23 17:17 MR brain wo con CLINICAL HISTORY: AMS; anaplastic astrocytoma TECHNIQUE: Multiplanar and multisequence MR images of the brain were obtained without intravenous contrast. Comparison: Comparison is made to MRI brain 10/14/2023 FINDINGS: No abnormal restricted diffusion is identified. Foci of DWI hyperintensity in the left parietal lobe corresponding to T2 shine through. The white matter is unremarkable. The ventricular system is normal in appearance. Partial visualization, the absence of IV contrast, of the previously noted left parietal lesions. These appear grossly stable from prior exam although the dominant lesion may be slightly decreased in size. Postsurgical changes of left parietal craniotomy again noted. There is no mass effect or midline shift. There is no evidence of acute intraparenchymal hemorrhage. No extra axial fluid collections are seen. The corpus callosum, pituitary gland, and cerebellar tonsils appear grossly unremarkable. Flow voids of the major intracranial arterial vessels are identified. The imaged portions of the paranasal sinuses, mastoid air cells, and orbits are unremarkable. IMPRESSION: 1. No acute abnormality and in particular no evidence of acute infarct. 2. Left parietal mass lesions are again seen with expected postsurgical changes. Evaluation is limited by noncontrast technique. ACT 112: Negative or not required by law. Electronically signed by: Jayce Joya M.D. 11/19/2023 7:06 PM PG Care Time/CCT Total # of Minutes Spent Total Time Spent with Patient: Total time spent is greater than 50% in coordination of care (as documented) at patient's floor/unit and/or counseling patient: I spent 140 minutes overall addressing this case: 20 min in medical data review/discussion with referring provider(s) and/or preparation for the visit 10 min in direct interaction with the patient/exam 80 min in Advance Care Planning/Goals of Care discussions as detailed above in note (must be >16min) 15 min in subsequent review and synthesis of assessment and plan 15 min communicating with other providers regarding the patient's case: primary team, care management Advanced Care Planning 45815 Advanced Care Planning 30 Min 96098 Advanced Care Planning Additional 30 [place] [address] IN/OBS CONSULT LVL 4,60M (25 - SIGNIFICANT, SEPARATELY IDENTIFIABLE ) Patient Type New Medical Decision Making High Complexity Diagnoses Acute alteration in mental status R41.82 Adjustment disorder with depressed mood F43.21 Advanced care planning/counseling discussion Z71.89 Depression F32.A Palliative care by specialist Z51.5 Seizure R56.9 Word finding difficulty R47.89 Anaplastic astrocytoma C71.9 Chronic fatigue R53.82 Fatigue type: chronic, unspecified Additional Codes Advanced Care Planning - 20830 Advanced Care Planning 30 Min: 76495 Advanced Care Planning 30 Min ([id number]) Advanced Care Planning - 69415 Advanced Care Planning Additional 30 Min: 49416 Advanced Care Planning Additional 30 Min ([id number])
[2023-11-23 14:31] LABS: Marijuana Quant, GCMS Urine 202 ng/mL (<5)
--- NOTE | 2023-11-23 14:52 | Hospitalist Progress Note ---
Date of Service November 23, 2023 Assessment & Plan (1) Acute alteration in mental status: Plan: Pt presented with acute AMS change. Confusion and concern for possible suicide attempt. Acute episode resolved completely now. AMS was possibly due to Marijuana intake, Pt tested positive for urine on toxicology. patient is noncompliant with his regular medication at home. He lives alone. Pt was evaluated by Psych recommended mirtazapine 7.5mg HS/ prn for insomnia, advised No need for 1-to-1 at this time and recommended SSRI such as fluoxetine if concern arises for major depression or SI. Patient continued to be at baseline AOX3. Palliative care team onboard. Awaiting placement. Present on Admission?: Yes (2) History of seizures: Plan: last seizure was 03/25/23 (treated inpatient at [facility]) after having his seizure medication discontinued at the time Evaluated by neurology: unlikely seizures. CT head cerebral shown to be improved, MRI no acute stroke. Advised no need for EEG at this admission. Advised prn anti-emetics, IV Mg 1gm/h prn, CGRP blockers if needed (e.g. 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 No new concerns today. MS change - d/t possible ingestion of some plant. Appreciate neurology and psychiatry input. Appreciate poison control input - s/p NAC protocol. h/o Seizure - Depakote d/yanci d/t rise in LFT. Keppra dose increased. No concern of seizure on presentation per neuro. Acute DVT - continue apixaban. Adjustment ds with depressed mood and chronic insomnia - Per psych - Denied SI during the interview. Likely adjustment ds with depressed mood. Could consider mirtazapine 7.5mgs prn for insomnia on discharge. May benefit from SSRI if concern arises for major depression or SI. -No acute concerns. Hx of anaplastic astrocytoma resection - s/p radiation/chemo. Concern of cognitive deficit - Ox3 during visits. Slower responses at times. Palliative care consult done. Plan for him to go to [facility] Subjective Pt says he is feeling better today. he is AOx3. Denies any thoughts of self- harm/SI says his mood is good. No acute overnight events. Pt remained medically stable but not considered safe to go back home as he lives alone. Pt awaiting for a placement - both rn case mgr and Palliative care team is on board. Review of Systems Review of Systems: Constitutional: denies fever, chills HEENT: denies congestion, sore throat Cardio: denies chest pain, palpitations Resp: denies shortness of breath, cough GI: denies abdominal pain, nausea, vomiting, constipation, diarrhea : denies pain with urination, change in urinary frequency Neuro: denies new numbness, tingling, weakness Physical Exam Physical Exam: General:Alert and oriented X3, no acute distress HEENT: Normocephalic, moist oral mucosa, Cardio: Regular rate and rhythm, no murmur, Resp:Lungs clear to auscultation b/l, no wheezes or rhonchi, GI: Soft and nontender, nondistended, bowel sounds active Skin: Warm, pink, dry, Psych: Mood-affect congruence. Results & Data Results & Data Vital Signs (Past 12 Hours) Vital Signs Temp Pulse Resp BP Pulse Ox O2 Del Method 11/23/23 14:24 36.9 C 94 H 16 120/86 95 Room Air 11/23/23 07:23 37.1 C 90 16 139/92 97 Room Air Resident Activity Tracking Resident Involvement: Resident Care Provided Care Provided: Adult Hospital Medicine
[2023-11-23] MEDS: ACETAMINOPHEN 500 MG TAB PO PRN (21:41)
--- NOTE | 2023-11-24 14:12 | Hospitalist Progress Note ---
Date of Service November 24, 2023 Assessment & Plan (1) Acute alteration in mental status: Plan: AMS resolved. Patient continued to be at baseline AOX3 Able to hold a normal conversation. No acute overnight events. Palliative care team onboard. Will offer SSRI, Mirtazapine HS if pt willing to try. Awaiting placement. (2) History of seizures: Plan: No acute overnight events. 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 Sitting comfortably in chair. Ox3. Reported having had a pleasant conversation with one of his brother. Denied any concerns. Toxic Encephalopathy POA - d/t possible ingestion of ?some plant. Appreciate neurology and psychiatry input. Appreciate poison control input - s/p NAC protocol. -THC level 202 from admission. Likely contributor. Discussed cutting use. h/o Seizure - Depakote d/yanci d/t rise in LFT. Keppra dose increased. No concern of seizure on presentation per neuro. Acute and chronic DVT - continue apixaban. Adjustment ds with depressed mood and chronic insomnia - Per psych - Denied SI during the interview. Likely adjustment ds with depressed mood. Could consider mirtazapine 7.5mgs prn for insomnia on discharge. May benefit from SSRI if concern arises for major depression or SI. -No concern of major depression/SI Hx of anaplastic astrocytoma resection - s/p radiation/chemo. Concern of cognitive deficit - Ox3 during visits. Slower responses at times. Concerns by family of inability to care for self or make decisions for himself - Ox3. -Understands the risks of medication non-adherence. No intention to hurt self. (Non-adherence could be from altered mentation during periods of excess cannabis use.) Palliative care consult done. Plan for him to go to [facility] Subjective Pt says he is feeling better today. He is AOx3. Denies any thoughts of self- harm/SI says his mood is good. No acute overnight events. Pt awaiting for a placement - scaffold worker and Palliative care team is on board. Pts brother was in the room and is aware and onboard with ongoing plan. Review of Systems 2 Review of Systems: Constitutional: denies fever, chills HEENT: denies congestion, sore throat Cardio: denies chest pain, palpitations Resp: denies shortness of breath, cough GI: denies abdominal pain, nausea, vomiting, constipation, diarrhea : denies pain with urination, change in urinary frequency Neuro: denies new numbness, tingling, weakness Physical Exam Physical Exam: General:Alert and oriented X3, no acute distress. HEENT: Normocephalic, moist oral mucosa, Cardio: Regular rate and rhythm, no murmur, Resp:Lungs clear to auscultation b/l, no wheezes or rhonchi, GI: Soft and nontender, nondistended, bowel sounds active Skin: Warm, pink, dry, Psych: Mood-affect congruence. Results & Data Results & Data Vital Signs (Past 12 Hours) Vital Signs Temp Pulse Resp BP Pulse Ox O2 Del Method 11/24/23 08:02 36.8 C 91 H 18 130/91 99 Room Air Resident Activity Tracking Resident Involvement: Resident Care Provided Care Provided: Adult Hospital Medicine
[2023-11-24 17:42] LABS: Babesia microti DNA Not Detected (Not Detected)
[2023-11-24 18:27] LABS: Valproic Acid, Free <4.0 mg/L (4.8-17.3); Valproic Acid, Total 9.9 mg/L (50.0-100.0)
[2023-11-25 08:05] LABS: Creatinine Clr Calc Pharmacy 160.8 ml/min; Est GFR (African American) 127.8 ml/min; Est GFR (Non-African American) 110.3 ml/min
--- NOTE | 2023-11-25 13:22 | Hospitalist Progress Note ---
Date of Service November 25, 2023 Assessment & Plan (1) Acute alteration in mental status: Plan: AMS resolved. Patient continued to be at baseline AOX3 Able to hold a normal conversation. No acute overnight events. Palliative care team onboard. Today Pts repeat MoCA score = 13/30, that is is reduced compared to previous one, (22) done 3days ago. Awaiting placement. (2) History of seizures: Plan: No acute overnight events. 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 No new concerns. Brother and [id number] visiting. Pleasant. Sitting in chair. Toxic Encephalopathy POA - d/t possible ingestion of ?some plant. Appreciate neurology and psychiatry input. Appreciate poison control input - s/p NAC protocol. -THC level 202 from admission. Discussed cutting use. h/o Seizure - Depakote d/yanci d/t rise in LFT. Keppra dose increased. No concern of seizure on presentation per neuro. Acute and chronic DVT - continue apixaban. Adjustment ds with depressed mood and chronic insomnia - Per psych - Denied SI during the interview. Likely adjustment ds with depressed mood. Per psych - Could consider mirtazapine 7.5mgs prn for insomnia on discharge. May benefit from SSRI if concern arises for major depression or SI. -No concern of major depression/SI Hx of anaplastic astrocytoma resection - s/p radiation/chemo. Cognitive deficit - Ox2. MOCA score 13/30. since astrocytoma treatment. Concerns by family of inability to care for self or make decisions for himself - Definite cognitive deficit. -Understands the risks of medication non-adherence. No intention to hurt self. (Non-adherence likely from cognitive deficit and altered mentation during periods of excess cannabis use.) Palliative care consult done. Plan for him to go to [facility] Subjective Pt says he is feeling better today. He is AOx3. Denies any thoughts of self- harm/SI says his mood is good. No acute overnight events. Pt awaiting for a placement - rescue worker and Palliative care team is on board. Review of Systems Review of Systems: Constitutional: denies fever, chills HEENT: denies congestion, sore throat Cardio: denies chest pain, palpitations Resp: denies shortness of breath, cough GI: denies abdominal pain, nausea, vomiting, constipation, diarrhea : denies pain with urination, change in urinary frequency Neuro: denies new numbness, tingling, weakness Physical Exam Physical Exam: General:Alert and oriented X3, no acute distress. HEENT: Normocephalic, moist oral mucosa, Cardio: Regular rate and rhythm, no murmur, Resp:Lungs clear to auscultation b/l, no wheezes or rhonchi, GI: Soft and nontender, nondistended, bowel sounds active Skin: Warm, pink, dry, Psych: Mood-affect congruence. Results & Data Results & Data Vital Signs (Past 12 Hours) Vital Signs Temp Pulse Resp BP Pulse Ox O2 Del Method 11/25/23 07:27 36.8 C 88 16 126/87 98 Room Air
[2023-11-26 06:03] LABS: Hematocrit (blood only) 43.5 % (42.0-52.0); Mean Corpuscular Hemoglobin 29.4 pg (25.0-34.0); Mean Corpuscular Hgb Conc 32.2 g/dL (32.0-36.0); Mean Corpuscular Volume 91.2 fL (80.0-100.0); Mean Platelet Volume 8.5 fL (9.4-12.4); Platelet Count 270 K/uL (130-400); RDW Coefficient of Variation 13.3 % (11.5-14.5); RDW Standard Deviation 44.9 fL (36.4-46.3); Red Blood Count 4.77 M/uL (4.70-6.10); White Blood Count 6.16 K/ul (4.8-10.8)
--- NOTE | 2023-11-26 15:38 | Hospitalist Progress Note ---
Date of Service November 26, 2023 Assessment & Plan (1) Acute alteration in mental status: Plan: AMS resolved. Patient continued to be at baseline AOX3 No acute overnight events. Palliative care team onboard. Awaiting placement. (2) History of seizures: Plan: No acute overnight events. 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 Toxic Encephalopathy POA - d/t possible ingestion of ?some plant. Appreciate neurology and psychiatry input. Appreciate poison control input - s/p NAC protocol. -THC level 202 from admission. Discussed cutting use. h/o Seizure - Depakote d/yanci d/t rise in LFT. Keppra dose increased. No concern of seizure on presentation per neuro. Acute and chronic DVT - continue apixaban. Adjustment ds with depressed mood and chronic insomnia - Per psych - Denied SI during the interview. Likely adjustment ds with depressed mood. Per psych - Could consider mirtazapine 7.5mgs prn for insomnia on discharge. May benefit from SSRI if concern arises for major depression or SI. -No concern of major depression/SI Hx of anaplastic astrocytoma resection - s/p radiation/chemo. Cognitive deficit - Ox2. MOCA score 13/30. since astrocytoma treatment. Concerns by family of inability to care for self or make decisions for himself in setting of cognitive deficit. -Understands the risks of medication non-adherence. No intention to hurt self. (Non-adherence likely from cognitive deficit and altered mentation during periods of excess cannabis use.) Palliative care consult done. Plan for him to go to [facility] Subjective Pt says he is feeling better today. He is AOx3. Denies any thoughts of self- harm/SI says his mood is good. No acute overnight events. Pt awaiting for a placement - drapery worker and Palliative care team is on board. Review of Systems Review of Systems: Constitutional: denies fever, chills HEENT: denies congestion, sore throat Cardio: denies chest pain, palpitations Resp: denies shortness of breath, cough GI: denies abdominal pain, nausea, vomiting, constipation, diarrhea : denies pain with urination, change in urinary frequency Neuro: denies new numbness, tingling, weakness Physical Exam Physical Exam: General:Alert and oriented X3, no acute distress. HEENT: Normocephalic, moist oral mucosa, Cardio: Regular rate and rhythm, no murmur, Resp:Lungs clear to auscultation b/l, no wheezes or rhonchi, GI: Soft and nontender, nondistended, bowel sounds active Skin: Warm, pink, dry, Psych: Mood-affect congruence. Results & Data Results & Data Vital Signs (Past 12 Hours) Vital Signs Temp Pulse Resp BP Pulse Ox O2 Del Method 11/26/23 14:07 36.8 C 90 16 122/78 97 Room Air 11/26/23 07:09 36.7 C 84 16 130/89 99 Room Air
--- NOTE | 2023-11-27 08:45 | Hospitalist Progress Note ---
Date of Service November 27, 2023 Assessment & Plan (1) Acute alteration in mental status: Plan: AMS resolved. Patient continued to be at baseline AOX3 No acute overnight events. Palliative care team onboard. Awaiting placement. (2) History of seizures: Plan: No acute overnight events. 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 Toxic Encephalopathy POA - d/t possible ingestion of ?some plant. Appreciate neurology and psychiatry input. Appreciate poison control input - s/p NAC protocol. -THC level 202 from admission. Discussed cutting use. h/o Seizure - Depakote d/yanci d/t rise in LFT. Keppra dose increased. No concern of seizure on presentation per neuro. Adjustment ds with depressed mood and chronic insomnia - Per psych - Denied SI during the interview. Likely adjustment ds with depressed mood. Per psych - Could consider mirtazapine 7.5mgs prn for insomnia on discharge. May benefit from SSRI if concern arises for major depression or SI. -No concern of major depression/SI Hx of anaplastic astrocytoma resection - s/p radiation/chemo. Cognitive deficit - Ox2. MOCA score 13/30. since astrocytoma treatment. Concerns by family of inability to care for self or make decisions for himself in setting of cognitive deficit. -Understands the risks of medication non-adherence. No intention to hurt self. (Non-adherence likely from cognitive deficit and altered mentation during periods of excess cannabis use.) Palliative care consult done. Plan for him to go to [facility] DVT - continue apixaban. Subjective Pt says he is feeling better today. He is AOx3. Denies any thoughts of self- harm/SI says his mood is good. No acute overnight events. Pt awaiting for a placement - workers compensation administrator and Palliative care team is on board. Review of Systems Review of Systems: Constitutional: denies fever, chills HEENT: denies congestion, sore throat Cardio: denies chest pain, palpitations Resp: denies shortness of breath, cough GI: denies abdominal pain, nausea, vomiting, constipation, diarrhea : denies pain with urination, change in urinary frequency Neuro: denies new numbness, tingling, weakness Physical Exam Physical Exam: General:Alert and oriented X3, no acute distress. HEENT: Normocephalic, moist oral mucosa, Cardio: Regular rate and rhythm, no murmur, Resp:Lungs clear to auscultation b/l, no wheezes or rhonchi, GI: Soft and nontender, nondistended, bowel sounds active Skin: Warm, pink, dry, Psych: Mood-affect congruence. Results & Data Results & Data Vital Signs (Past 12 Hours) Vital Signs Temp Pulse Resp BP Pulse Ox O2 Del Method 11/27/23 07:36 36.4 C L 89 16 137/90 97 Room Air Resident Activity Tracking Resident Involvement: Resident Care Provided Care Provided: Adult Hospital Medicine
--- NOTE | 2023-11-27 17:48 | Communication Note ---
Date of Service: November 27, 2023 Brother informed that [facility] bed is available starting tomorrow for this whole week. Considering Charly's cognitive deficit, he is not in the capacity to care for himself on his own.
[2023-11-28 08:44] LABS: Creatinine Clr Calc Pharmacy 152.3 ml/min; Est GFR (Non-African American) 107.9 ml/min
--- NOTE | 2023-11-28 17:49 | Hospitalist Progress Note ---
Date of Service November 28, 2023 Assessment & Plan (1) Acute alteration in mental status: Plan: AMS resolved. Patient continued to be at baseline AOX3 No acute overnight events. Palliative care team onboard. Awaiting placement. (2) History of seizures: Plan: No acute overnight events. 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 Seems more okay with the idea of going to personal care today. Extensive discussion with POA earlier as well. Appreciate prior hospitalist depth and assessing mentation and capacity. Patient fairly repetitive during our conversation and seems to lack insight. Vitals noted, in general he is awake and alert pleasant no distress. Breathing unlabored no accessory muscle use good effort. Skin without rashes pallor or icterus. Neuro without focal deficits. Toxic Encephalopathy POA - d/t possible ingestion of ?some plant. Appreciate neurology and psychiatry input. Appreciate poison control input - s/p NAC protocol. 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 Doing well on current medication regimen. Adjustment ds with depressed mood and chronic insomnia - Per psych - Denied SI during the interview. Likely adjustment ds with depressed mood. Per psych - Could consider mirtazapine 7.5mgs prn for insomnia on discharge. May benefit from SSRI if concern arises for major depression or SI. -No concern of major depression/SI, Which underscores the concern of his ability for self-care given that he was causing significant risk to himself without psychiatrically assessed willful self harm Hx of anaplastic astrocytoma resection - s/p radiation/chemo. Cognitive deficit - Ox2. MOCA score 13/30. since astrocytoma treatment. Concerns by family of inability to care for self or make decisions for himself in setting of cognitive deficit. - unfortunately showing significant difficulties in caring for himself independently. Palliative care consult done. Plan for him to go to [facility] DVT - continue apixaban. Subjective Pt says he is feeling better today. He is AOx3. Denies any thoughts of self- harm/SI says his mood is good. No acute overnight events. Pt awaiting for a placement - alteration worker and Palliative care team is on board. Review of Systems Review of Systems: Constitutional: denies fever, chills HEENT: denies congestion, sore throat Cardio: denies chest pain, palpitations Resp: denies shortness of breath, cough GI: denies abdominal pain, nausea, vomiting, constipation, diarrhea : denies pain with urination, change in urinary frequency Neuro: denies new numbness, tingling, weakness Physical Exam Physical Exam: General:Alert and oriented X3, no acute distress. HEENT: Normocephalic, moist oral mucosa, Cardio: Regular rate and rhythm, no murmur, Resp:Lungs clear to auscultation b/l, no wheezes or rhonchi, GI: Soft and nontender, nondistended, bowel sounds active Skin: Warm, pink, dry, Psych: Mood-affect congruence. Results & Data Results & Data Vital Signs (Past 12 Hours) Vital Signs Temp Pulse Resp BP Pulse Ox O2 Del Method 11/28/23 14:35 36.8 C 75 16 128/85 98 Room Air 11/28/23 07:18 36.8 C 77 16 130/89 98 Room Air
--- NOTE | 2023-11-28 18:16 | Billing Data ---
Date of Service November 28, 2023 Coding Level of Care Code 17542 SUB INP/OBS CARE
--- NOTE | 2023-11-29 07:30 | Hospitalist Progress Note ---
Date of Service November 29, 2023 Assessment & Plan (1) Acute alteration in mental status: Plan: AMS resolved. Patient continued to be at baseline AOX3 No acute overnight events. Palliative care team onboard. Awaiting placement. (2) History of seizures: Plan: No acute overnight events. 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 less amenable to [facility] initially although does seem to realize he needs more help. Vitals noted, in general he is awake and alert pleasant no distress. more tangential, less apparent insight today. Breathing unlabored no accessory muscle use good effort. Skin without rashes pallor or icterus. Neuro without focal deficits. Toxic Encephalopathy POA - d/t possible ingestion of ?some plant. Appreciate neurology and psychiatry input. Appreciate poison control input - s/p NAC protocol. 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 Doing well on current medication regimen. Adjustment ds with depressed mood and chronic insomnia - Per psych - Denied SI during the interview. Likely adjustment ds with depressed mood. Per psych - Could consider mirtazapine 7.5mgs prn for insomnia on discharge. May benefit from SSRI if concern arises for major depression or SI. -No concern of major depression/SI, Which underscores the concern of his ability for self-care given that he was causing significant risk to himself without psychiatrically assessed willful self harm Hx of anaplastic astrocytoma resection - s/p radiation/chemo. Cognitive deficit - Ox2. MOCA score 13/30. since astrocytoma treatment. Concerns by family of inability to care for self or make decisions for himself in setting of cognitive deficit. - unfortunately showing significant difficulties in caring for himself independently. Palliative care consult done. Plan for him to go to [facility] seems most appropriate DVT - continue apixaban. (clot was almost certainly due to missing doses) Subjective Pt says he is feeling better today. He is AOx3. Denies any thoughts of self- harm/SI says his mood is good. No acute overnight events. 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 Review of Systems Review of Systems: Constitutional: denies fever, chills HEENT: denies congestion, sore throat Cardio: denies chest pain, palpitations Resp: denies shortness of breath, cough GI: denies abdominal pain, nausea, vomiting, constipation, diarrhea : denies pain with urination, change in urinary frequency Neuro: denies new numbness, tingling, weakness Physical Exam Physical Exam: General:Alert and oriented X3, no acute distress. HEENT: Normocephalic, moist oral mucosa, Cardio: Regular rate and rhythm, no murmur, Resp:Lungs clear to auscultation b/l, no wheezes or rhonchi, GI: Soft and nontender, nondistended, bowel sounds active Skin: Warm, pink, dry, Psych: Mood-affect congruence. Results & Data Results & Data Vital Signs (Past 12 Hours) Vital Signs Temp Pulse Resp BP Pulse Ox O2 Del Method 11/28/23 21:49 36.7 C 89 18 124/80 95 Room Air Resident Activity Tracking Resident Involvement: Resident Care Provided Care Provided: Adult Hospital Medicine
--- NOTE | 2023-11-29 12:58 | Billing Data ---
Date of Service November 29, 2023 Coding Level of Care Code 44213 SUB INP/OBS CARE
--- NOTE | 2023-11-30 10:07 | Hospitalist Progress Note ---
Date of Service November 30, 2023 Assessment & Plan (1) Acute alteration in mental status: Plan: AMS resolved. Patient continued to be at baseline AOX3 No acute overnight events. Palliative care team onboard. Awaiting placement. (2) History of seizures: Plan: No acute overnight events. 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 Vitals noted, in general he is awake and alert pleasant no distress. more tangential, less apparent insight today. Breathing unlabored no accessory muscle use good effort. Skin without rashes pallor or icterus. Neuro without focal deficits. Toxic Encephalopathy POA - d/t possible ingestion of ?some plant. Appreciate neurology and psychiatry input. Appreciate poison control input - s/p NAC protocol. 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 Doing well on current medication regimen. Adjustment ds with depressed mood and chronic insomnia - Per psych - Denied SI during the interview. Likely adjustment ds with depressed mood. Per psych - Could consider mirtazapine 7.5mgs prn for insomnia on discharge. May benefit from SSRI if concern arises for major depression or SI. -No concern of major depression/SI, Which underscores the concern of his ability for self-care given that he was causing significant risk to himself without psychiatrically assessed willful self harm Hx of anaplastic astrocytoma resection - s/p radiation/chemo. Cognitive deficit - MOCA score 13/30. since astrocytoma treatment. Had a mary and open discussion with patient about his cognitive deficits, cognitive incongruity, and good days and bad daysbut also that due to the nature of the deficits, he would really not have an ability to be aware that he is having a bad day. Discussed how all of this presents enormous issues for his safety and wellbeing. discussed with his brother/POA as well. Concerns by family of inability to care for self or make decisions for himself in setting of cognitive deficit. - unfortunately showing significant difficulties in caring for himself independently, As well as significant capacity deficits over the long haul in his ability to truly maintain safety. Palliative care consult done. Plan for him to go to [facility] seems most appropriate DVT - continue apixaban. (clot was almost certainly due to missing doses) Subjective Pt says he is feeling better today. He is AOx3. Denies any thoughts of self- harm/SI says his mood is good. No acute overnight events. 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 Review of Systems Review of Systems: Constitutional: denies fever, chills HEENT: denies congestion, sore throat Cardio: denies chest pain, palpitations Resp: denies shortness of breath, cough GI: denies abdominal pain, nausea, vomiting, constipation, diarrhea : denies pain with urination, change in urinary frequency Neuro: denies new numbness, tingling, weakness Physical Exam Physical Exam: General:Alert and oriented X3, no acute distress. HEENT: Normocephalic, moist oral mucosa, Cardio: Regular rate and rhythm, no murmur, Resp:Lungs clear to auscultation b/l, no wheezes or rhonchi, GI: Soft and nontender, nondistended, bowel sounds active Skin: Warm, pink, dry, Psych: Mood-affect congruence. Results & Data Results & Data Vital Signs (Past 12 Hours) Vital Signs Temp Pulse Resp BP Pulse Ox O2 Del Method 11/30/23 07:51 Room Air 11/30/23 07:08 36.4 C L 78 16 124/83 100 Room Air Resident Activity Tracking Resident Involvement: Resident Care Provided Care Provided: Adult Hospital Medicine
--- NOTE | 2023-11-30 16:48 | Billing Data ---
Date of Service November 30, 2023 Coding Level of Care Code 73675 SUB INP/OBS CARE MIN
[2023-12-01 09:53] LABS: Creatinine Clr Calc Pharmacy 183.8 ml/min; Est GFR (African American) 135.1 ml/min; Est GFR (Non-African American) 116.5 ml/min
--- NOTE | 2023-12-01 17:09 | Hospitalist Progress Note ---
Date of Service December 01, 2023 Assessment & Plan (1) Acute alteration in mental status: Plan: acute altered mental status appears to have been due to seizure, possible substance ingestion, probably stopping all of his medicines, and a degree of what we are seeing and waxing and waning of his mentation as it relates to the brain tumor and surrounding edemahis mental status now seems to wax and wane in acuity, but generally capacity is quite difficult to maintain, and chronically he does not appear to have capacity to make safe decisions. (2) History of seizures: Plan: No acute overnight events. 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 Patient/family concerned about cost of Eliquisdiscussed that we will have case management review for possible coupon/co-pay cards etc.but at the same time given that Pradaxa is a generic, I will need to crosscheckI do not see any contraindications or interactions that would preclude Pradaxa with him, and as long as there are not, it is list [facility] on good Rx of about $60 a month is quite affordable for patient and family. Plan Disposition: Anticipate personal-care Condition code (intubation only) Admission and Anticipated Discharge Date Admission Date: November 19, 2023 Supervising Physician Co-Signing Physician Notes Toxic Encephalopathy POA - d/t possible ingestion of ?some plant. Appreciate neurology and psychiatry input. Appreciate poison control input - s/p NAC protocol. 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 Doing well on current medication regimen. Adjustment ds with depressed mood and chronic insomnia - Per psych - Denied SI during the interview. Likely adjustment ds with depressed mood. Per psych - Could consider mirtazapine 7.5mgs prn for insomnia on discharge. May benefit from SSRI if concern arises for major depression or SI. -No concern of major depression/SI, Which underscores the concern of his ability for self-care given that he was causing significant risk to himself without psychiatrically assessed willful self harm Hx of anaplastic astrocytoma resection - s/p radiation/chemo. Cognitive deficit - MOCA score 13/30. since astrocytoma treatment. 11/29, Had a mary and open discussion with patient about his cognitive deficits, cognitive incongruity, and good days and bad daysbut also that due to the nature of the deficits, he would really not have an ability to be aware that he is having a bad day. Discussed how all of this presents enormous issues for his safety and wellbeing. discussed with his brother/POA as well. reiterated discussions today - and moving forward he is currently amenable to personal care. Concerns by family of inability to care for self or make decisions for himself in setting of cognitive deficit. - unfortunately showing significant difficulties in caring for himself independently, as well as significant capacity deficits over the long haul in his ability to truly maintain safety/make safe decisions reliably. Palliative care consult done. Plan for him to go to [facility] seems most appropriate DVT - continue apixaban. See abovelikely will need to transition to something more affordable, but probably will be able to do so with Pradaxajust need to crosscheck with the rest of his situation first(clot was almost certainly due to missing doses) Subjective Would like to try to wean down on gabapentinwonders if it is making him feel little bit weaker. Notes that it was a fairly new start medication anyway. Is much more amenable to personal care. Family present. Answered all questions to the best my ability and to their satisfaction. Also concern on cost of Eliquis. Review of Systems Review of Systems: All systems reviewed & are unremarkable except as noted in HPI & below Physical Exam Physical Exam: Awake and alert, pleasant and conversational, but also much more tangential, he wanders in the conversation to fairly irrelevant topics and has a very hard time staying focused on discussions at hand, at the same time he is very calm and pleasant today. A little bit of difficulty with word finding. Breathing unlabored no accessory muscle use good effort. Skin without rashes pallor or icterus. Results & Data Results & Data Vital Signs (Past 12 Hours) Vital Signs Temp Pulse Resp BP Pulse Ox O2 Del Method 12/01/23 14:17 97.7 F 82 17 143/96 H 98 Room Air 12/01/23 07:32 Room Air 12/01/23 07:20 98.1 F 82 16 149/98 H 98 Room Air PG Care Time/CCT Total # of Minutes Spent Total Time Spent with Patient: Total time spent is greater than 50% in coordination of care (as documented) at patient's floor/unit and/or counseling patient: Coding Level of Care Code 52556 SUB INP/OBS CARE 2/35MIN Diagnoses Acute alteration in mental status R41.82 History of seizures Z87.898 Anaplastic astrocytoma C71.9 DVT (deep venous thrombosis) I82.409
--- NOTE | 2023-12-01 17:10 | Billing Data ---
Date of Service December 01, 2023 Coding Level of Care Code 41326 SUB INP/OBS CARE
[2023-12-02] MEDS: GABAPENTIN 300 MG CAP PO SCH (09:25)
--- NOTE | 2023-12-02 15:26 | Magnetic Resonance Report ---
MRI OF THE BRAIN WITHOUT CONTRAST CLINICAL HISTORY: Worsening weaknes/ tumor? edema COMPARISON STUDY: MRI of the brain and head CT November 19, 2023. TECHNIQUE: Utilizing a 1.5 Lisa magnet and dedicated coil, multiplanar, multiecho imaging of the bra in was performed without IV contrast. FINDINGS: There are no foci of restricted diffusion to suggest acute infarct. No acute intracranial h emorrhage is identified on this exam. Multiple intra-axial lesions within the left frontal and pariet al lobes have increased in size since MRI of November 19, 2023. Exam is mildly compromised given lac k of postcontrast imaging. However, a posterior left frontal lobe lesion on T2-weighted sequence imag e 17 of 27 measures 3.1 x 1.9 cm, previously 2.8 x 1.8 cm. An adjacent left frontal lobe lesion on im age 18 measures 1.8 x 1.4 cm, previously 1.5 x 1.1 cm. A posterior left temporal lobe lesion on image 15 measures 1.5 x 0.9 cm, previously 1.3 x 0.9 cm. Extensive associated vasogenic edema extending in to the splenium of the corpus callosum and the right cerebral hemisphere has significantly increased. Associated mass effect has increased with sulcal effacement. Interval development of [address] midline shift. Edema slightly extends into the left cerebral peduncle. There is no evidence for he rniation at this time. Mass effect upon the atrium of the left lateral ventricle has increased. The b flower cisterns are patent. A left parietal resection cavity is again noted. IMPRESSION: 1. Findings consistent with disease progression since MRI of November 19, 2023. Increase in size of multiple intra-axial lesions within the left frontal and parietal lobes with significant increase in associated vasogenic edema and mass effect which results in sulcal effacement, compression of portion s of the left lateral ventricle and 5 mm of rightward midline shift. Redemonstration of involvement o f the corpus callosum and the right cerebral hemisphere. 2. No evidence for acute infarction. No acute intracranial hemorrhage. ACT 112: Negative or not required by law. Electronically signed by: Aldo Candelaria M.D. 12/02/2023 3:25 PM
[2023-12-02] MEDS ORDERED: dexAMETHasone**PF** 10 MG/ML VIAL IV ONE (16:03)
--- NOTE | 2023-12-02 16:45 | Hospitalist Progress Note ---
Date of Service December 02, 2023 Assessment & Plan (1) Acute alteration in mental status: Plan: acute altered mental status appears to have been due to seizure, possible substance ingestion, probably stopping all of his medicines, and a degree of what we are seeing and waxing and waning of his mentation as it relates to the brain tumor and surrounding edemahis mental status now seems to wax and wane in acuity, but generally capacity is quite difficult to maintain, and chronically he does not appear to have capacity to make safe decisions. 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 Will need to discuss with oncology about a more prolonged course versus alternative agents/other management. Obviously for now utilizing Decadron to get ahead of the swelling. Also unfortunately the tumor has progressed very slightly, but progressed nonetheless radiographically and only about 2 weeks. As above noted, patient was sleeping and in discussion with nursing his mentation today would likely not have been conducive to him truly being able to process the news, but possibly have a good deal of the fear and dysphoria from it; that, combined with the fact that his family was not present, I will discuss his MRI with him at a later date. POA updated on MRI findings. (3) History of seizures: Plan: No acute overnight events. Plan: c/w keppra to 1500mg po bid At his request, and given that he was likely seizing due to med nonadherence anyway, will try to wean down on gabapentinreduced to twice daily for now and continue to follow seizure precautions (4) DVT (deep venous thrombosis): Plan: currently on Eliquislikely formed a clot due to missing Eliquis doses at home due to difficulty taking care of himself. Patient/family concerned about cost of Eliquisdiscussed that we will have case management review for possible coupon/co-pay cards etc.but at the same time given that Pradaxa is a generic, I will need to crosscheckI do not see any contraindications or interactions that would preclude Pradaxa with him, and as long as there are not, it is list [facility] on good Rx of about $60 a month is quite affordable for patient and family. Plan Disposition: Anticipate personal-care Condition code (intubation only) Admission and Anticipated Discharge Date Admission Date: November 19, 2023 Subjective had worsening right arm weakness today. Given this combined with a little bit of right leg weakness over the last 2 daysconcern on recurrent vasogenic edema - MRI checked to r/o tumor progression or bleed - did show edema, mild tumor progression. pt sleeping - nursing noted that with mentation today likely would not be of benefit to him to awaken him in order to discuss MRI as he likely would not really grasp things with his mentation today, and family also not present for support after breaking bad news. Physical Exam Physical Exam: general he is sleeping comfortably appears to be in no distress. Breathing unlabored no accessory muscle use good effort. Skin without rashes pallor or icterus. Results & Data Results & Data Vital Signs (Past 12 Hours) Vital Signs Temp Pulse Resp BP Pulse Ox O2 Del Method 12/02/23 14:08 97.3 F L 89 16 128/79 96 Room Air 12/02/23 08:30 Room Air 12/02/23 07:38 98.1 F 97 H 16 142/98 H 96 Room Air PG Care Time/CCT Total # of Minutes Spent Total Time Spent with Patient: Total time spent is greater than 50% in coordination of care (as documented) at patient's floor/unit and/or counseling patient: Coding Level of Care Code 55361 SUB INP/OBS CARE 3/50MIN Diagnoses Acute alteration in mental status R41.82 Anaplastic astrocytoma C71.9 History of seizures Z87.898 DVT (deep venous thrombosis) I82.409
[2023-12-02] MEDS ORDERED: dexAMETHasone**PF** 10 MG/ML VIAL IV SCH (17:00)
[2023-12-02] MEDS: dexAMETHasone 4 MG in SYRINGE 0 ML IV SCH (17:28)
[2023-12-02] MEDS: dexAMETHasone 10 MG in SYRINGE 0 ML IV STA (17:28)
[2023-12-03 06:53] LABS: Hematocrit (blood only) 40.3 % (42.0-52.0); Mean Corpuscular Hemoglobin 30.1 pg (25.0-34.0); Mean Corpuscular Hgb Conc 34.7 g/dL (32.0-36.0); Mean Corpuscular Volume 86.7 fL (80.0-100.0); Platelet Count 424 K/uL (130-400); RDW Coefficient of Variation 12.7 % (11.5-14.5); RDW Standard Deviation 40.1 fL (36.4-46.3); Red Blood Count 4.65 M/uL (4.70-6.10); White Blood Count 7.89 K/ul (4.8-10.8)
--- NOTE | 2023-12-03 07:35 | Hospitalist Progress Note ---
Date of Service December 03, 2023 Assessment & Plan (1) Acute alteration in mental status: Plan: AMS resolved. Patient continues to be at baseline AOX3 No acute overnight events. Palliative care team onboard. Plan to discharge to [facility], can be accepted as early as 12/05/23 (2) History of seizures: Plan: No seizures overnight. 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 - Corticosteroids stopped at admission - Recent Brain MRI from 12/01 showed increase in vasogenic edema cause right midline shift when compared to last brain MRI. - Onset right UE and LE weakness as well as decreased coordination at bilateral LE, gradually improving - Continue Dexamethasone 4mg IV - Encourage pt to use right UE for usual activities, ambulation with assistance Plan Disposition: Med/Surg Condition code (intubation only) VTE PPx: Eliquis Admission and Anticipated Discharge Date Admission Date: November 19, 2023 Supervising Physician Co-Signing Physician Notes I personally examined the patient and verified all torres points of history and exam, discussed case, and agree with decision making with Dr Moraes ongoing right-sided weakness but otherwise feeling okay. Brother (POA) and [id number]-go-dos at the bedside. They are all having a good conversation. Vitals noted, in general he is awake and alert pleasant has a lot of difficulty with word finding no distress right-sided weakness predominantly arm with a lot of clumsiness and motor control. Vasogenic edema surrounding brain tumormain acute problemback on dexamethasone. Unfortunately was unable to tolerate being off of it. I suspect with another day or so his right sided deficits will improve. Continue steroids. Will definitely need input from his [facility] neurology team on ongoing management given the fairly unfavorable risk/benefit in either directiongiven that he is having recurrent cerebral edema off the steroids, but obviously given that chronic steroids in his situation will enhance frailty. Similarly with the tumor being slightly bigger we will need [facility] [place] input on possibly repeat gamma knife for other management. if R sided weakness doesn't improve, then may need to discuss hospital to hospital transfer, but doubt this will be the case. Ongoing plans of less current acuity as below Toxic Encephalopathy POA - d/t possible ingestion of ?some plant. Appreciate neurology and psychiatry input. Appreciate poison control input - s/p NAC protocol. 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 Doing well on current medication regimen. Adjustment ds with depressed mood and chronic insomnia - Per psych - Denied SI during the interview. Likely adjustment ds with depressed mood. Per psych - Could consider mirtazapine 7.5mgs prn for insomnia on discharge. May benefit from SSRI if concern arises for major depression or SI. -No concern of major depression/SI, Which underscores the concern of his ability for self-care given that he was causing significant risk to himself without psychiatrically assessed willful self harm Hx of anaplastic astrocytoma resection - s/p radiation/chemo. see above Cognitive deficit - MOCA score . since astrocytoma treatment. 11/29, Had a mary and open discussion with patient about his cognitive deficits, cognitive incongruity, and good days and bad daysbut also that due to the nature of the deficits, he would really not have an ability to be aware that he is having a bad day. Discussed how all of this presents enormous issues for his safety and wellbeing. discussed with his brother/POA as well. reiterated discussions today - and moving forward he is currently amenable to personal care. relationship w brother/POA has gotten back to very good the last few days. Concerns by family of inability to care for self or make decisions for himself in setting of cognitive deficit. - unfortunately showing significant difficulties in caring for himself independently, as well as significant capacity deficits over the long haul in his ability to truly maintain safety/make safe decisions reliably. Palliative care consult done. Plan for him to go to [facility] seems most appropriate - once R sided weakness improves enough that this is safe. DVT - continue apixaban. See abovelikely will need to transition to something more affordable, but probably will be able to do so with Pradaxajust need to crosscheck with the rest of his situation first(clot was almost certainly due to missing doses) Subjective Pt is a 47 yo male with hx of anaplastic astrocytoma, cerebral edema, seizures and DVT. Pt continues with right UE and LE weakness. He reports he wants his current new medication discontinued and he is ready to leave the hospital for the personal senior living. He denies pain, recent seizures, GI problems, CP, SOB or urinary issues. Review of Systems Review of Systems: As per HPI Physical Exam Constitutional: WD/WN, vitals as above Respiratory: normal respiratory effort, lungs clear to auscultation Gastrointestinal (Abdomen): normal bowel sounds, soft, nontender, no hepatosplenomegaly Musculoskeletal: 2+ to 3/5 strength at right arm, 2+/5 at right leg. Full PROM at right arm and leg. No significant tone noted. Neurologic: A&O x 3, but apraxic when trying answer questions or give specific information. Decreased coordination at bilateral lower extremities Psychiatric: A+Ox3, euthymic affect Results & Data Results & Data Vital Signs (Past 12 Hours) Vital Signs Temp Pulse Resp BP Pulse Ox O2 Del Method 12/02/23 20:30 36.7 C 90 18 126/80 95 Room Air Resident Activity Tracking Resident Involvement: Resident Care Provided Care Provided: Adult Hospital Medicine
--- NOTE | 2023-12-03 14:19 | Billing Data ---
Date of Service December 03, 2023 Coding Level of Care Code 46707 SUB INP/OBS CARE
[2023-12-03] MEDS: POLYETHYLENE (MIRALAX) 17 GM PACK PO ONE (22:51)
[2023-12-04 06:44] LABS: Creatinine Clr Calc Pharmacy 203.1 ml/min; Est GFR (African American) 141.8 ml/min; Est GFR (Non-African American) 122.4 ml/min
--- NOTE | 2023-12-04 07:05 | Hospitalist Progress Note ---
Date of Service December 04, 2023 Assessment & Plan (1) Acute alteration in mental status: Plan: AMS resolved. Patient continues to be at baseline AOX3 No acute overnight events. -Palliative care team onboard. -Plan to discharge to [facility], likely to be ready tomorrow (12/05/23) (2) History of seizures: Plan: No seizures overnight. 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 Corticosteroids stopped at admission - Recent Brain MRI from 12/01 showed increase in vasogenic edema cause right midline shift when compared to last brain MRI. - Onset right UE and LE weakness as well as decreased coordination at bilateral LE, Improvement noted in strength and coordination compared to yesterday - Continue Dexamethasone 4mg IV - Encourage pt to use right arm and leg for usual activities, ambulation with assistance - [place]ach out [place] 12/04 [place] [facility] upon [place] as well as findings from latest MRI and possible follow up with patient. Plan Disposition: Med/Surg Condition code (intubation only) VTE PPx: Eliquis Admission and Anticipated Discharge Date Admission Date: November 19, 2023 Supervising Physician Co-Signing Physician Notes I personally examined the patient and verified all torres points of history and exam, discussed case, and agree with decision making with Dr Moraes no new complaints today. feels like R arm working better, feels like walking better. Vitals noted, in general he is awake and alert pleasant still has a lot of difficulty with word finding no distress right-sided weakness predominantly arm with a lot of clumsiness and motor control but notably better than yesterday Vasogenic edema surrounding brain tumormain acute problemback on dexamethasone. Unfortunately was unable to tolerate being off of it. deficits improving. does not quite yet appear [facility] appropriate but strongly suspect in another 1-2 days he will (original plan before recurrent cerebral edema was [facility] tuesday - seems like this still might be viable - will obviously need to see how much his gait has improved by tomorrow. have held off on PT/OT given that the edema by all counts almost certainly should improve and therefore SNF placement exceedingly unlikely to be necessary). Continue steroids. Will definitely need input from his [place] neurology team on ongoing management given the fairly unfavorable risk/benefit in either directiongiven that he is having recurrent cerebral edema off the steroids, but obviously given that chronic steroids in his situation will enhance frailty. Similarly with the tumor being slightly bigger we will need [facility] input on possibly repeat gamma knife for other management. (if R sided weakness doesn't improve, then may need to discuss hospital to hospital transfer, but doubt this will be the case.) for tomorrow 12/04 - will ask that the team reach out to his oncologist at [place] so that (a) they can continue to manage/monitor dexamethasone after he is out of the hospital and (b) they are aware of small but noted tumor growth so that if further gamma knife etc would be viable plans, those plans could proceed expeditiously. when discharged - if case management unable to procure coupons that would make eliquis affordable, would then change to dabigatran for affordability Ongoing plans of less current acuity as below Toxic Encephalopathy POA - d/t possible ingestion of ?some plant. Appreciate neurology and psychiatry input. Appreciate poison control input - s/p NAC protocol. 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 Doing well on current medication regimen. he has expressed a repeated desire to wean gabapentin (and it appears to be a recent addition) - dropped to 300mg bid a few days ago without any notable problems. will reduce again to HS only. likely can wean entirely over coming week(s). Adjustment ds with depressed mood and chronic insomnia - Per psych - Denied SI during the interview. Likely adjustment ds with depressed mood. Per psych - Could consider mirtazapine 7.5mgs prn for insomnia on discharge. May benefit from SSRI if concern arises for major depression or SI. -No concern of major depression/SI, Which underscores the concern of his ability for self-care given that he was causing significant risk to himself without psychiatrically assessed willful self harm Hx of anaplastic astrocytoma resection - s/p radiation/chemo. see above Cognitive deficit - MOCA score 30. since astrocytoma treatment. 11/29, Had a mary and open discussion with patient about his cognitive deficits, cognitive incongruity, and good days and bad daysbut also that due to the nature of the deficits, he would really not have an ability to be aware that he is having a bad day. Discussed how all of this presents enormous issues for his safety and wellbeing. discussed with his brother/POA as well. reiterated discussions today - and moving forward he is currently amenable to personal care. relationship w brother/POA has gotten back to very good the last few days. Concerns by family of inability to care for self or make decisions for himself in setting of cognitive deficit. - unfortunately showing significant difficulties in caring for himself independently, as well as significant capacity deficits over the long haul in his ability to truly maintain safety/make safe decisions reliably. Palliative care consult done. Plan for him to go to [facility] seems most appropriate - once R sided weakness improves enough that this is safe. DVT - continue apixaban for now. See abovelikely will need to transition to something more affordable, but probably will be able to do so with Pradaxaon review does not appear to have any contraindications or significant drug interactions, and [employer] for generic was in a range that he/family noted they could affort Subjective Pt is a 47 yo male with hx of anaplastic astrocytoma, cerebral edema, seizures and DVT. Pt continues with right UE and LE weakness, but feels like his arm is stronger today. Pt is in good spirits as today is his birthday. Denies CP, SOB, dizziness, changes in vision, joint/muscle pain, numbness, urinary issues or GI problems. Review of Systems Review of Systems: As per HPI Physical Exam Constitutional: WD/WN, vitals as above Respiratory: normal respiratory effort, lungs clear to auscultation Gastrointestinal (Abdomen): normal bowel sounds, soft, nontender, no hepatosplenomegaly Musculoskeletal: Right arm strength is grossly 3-/5, right leg is 3/5. Neurologic: Bilateral LE coordination remains reduced with [id number], but improved ability to find heel to li positioning. Apraxia continues, but decreased frequency of word loss. Psychiatric: A+Ox3, euthymic affect Results & Data Results & Data Vital Signs (Past 12 Hours) Vital Signs Temp Pulse Resp BP Pulse Ox O2 Del Method 12/03/23 21:38 36.3 C L 90 16 128/86 97 Room Air Resident Activity Tracking Resident Involvement: Resident Care Provided Care Provided: Adult Hospital Medicine
[2023-12-04 07:32] VITALS: TEMP 97.5
--- NOTE | 2023-12-04 16:48 | Billing Data ---
Date of Service December 04, 2023 Coding Level of Care Code 17905 SUB INP/OBS CARE MIN
[2023-12-04] MEDS: dexAMETHasone 4 MG TAB PO SCH (17:46)
[2023-12-04] MEDS: GABAPENTIN 300 MG CAP PO SCH (21:16)
[2023-12-05 07:48] VITALS: BP 148/89; PULSE 68; RESP 18; O2SAT 98
--- NOTE | 2023-12-05 11:55 | Discharge Summary ---
Date of Service December 05, 2023 Admission HPI Per Admitting Provider Charly is a 47-year-old male with PMH of anaplastic astrocytoma, HLD, cerebral edema, and seizures. He presented on 11/18 for altered mental status. Patient is a poor historian at time of admission. Patient's brother (Reid), and jqpblp-[id number]-tzm (Betty) are at the bedside provide the history. They report that he was previously living with them, but is now living on his own. Gqzmjf-ka-udb reports that he began acting strange yesterday while at the grocery store and was more hyperverbal with her. Last known well was at 8 PM when the patient sent them a picture of him playing guitar outside the house. They then got a call around 9 AM, after neighbors called police due to banging in house followed by screaming. The family believes he had a grand-mal seizure around 8:30-9:00 AM this morning and bit his tongue. Patient also says he might of had a smaller one last night. These were both unwitnessed seizures. He denies any falls or injuries to the head or neck. No history of stroke to the family's knowledge. Patient has been managing his own medication at home. He reports he is still taking his medication, but believes the timing is off. He is unsure if he took them today. While family has not noticed facial droop or unilateral deficits, they confirm slurred speech and drooling. Patient does have a history of a blood clot, and has swelling in his right leg greater than his left. He also has a new purpuric rash on his right posterior ankle that is new according to the family. According to family, there is been an acute change in cognitive baseline since he last night. Patient denies smoking, tobacco use, recent alcohol use. Patient is hypertensive at 159/100 at time of admission; vitals otherwise stable. ED course: ROS: Patient endorses altered mental status, slurred speech, incoherent thought processes, swelling in the lower extremities bilaterally, pain in feet. Patient denies fever, chills, night-sweats, chest pain, SOB, pleuritic CP, abdominal pain, or N/V/D. Addendum: Spoke to both the patient's brother and dhoczx-ao-noj outside the room. Patient's lpdaoq-em-wye reports that she found multiple supplements in the home. She also reports that patient's neighbor has reported he has been up at night screaming and banging around, and may be having visual/auditory hallucinations. He is also been more depressed recently, and has said things such as "I am sorry" and that "I do not want to be a burden anymore". They are concerned that Admission Exam Per Admitting Provider General: no acute distress; non-toxic appearing; well-nourished; cooperative; SpO2 100% on RA HEENT: normocephalic, atraumatic; no scleral icterus; PERRLA; vision and hearing intact; bite lambert noted on the tongue Neck: supple; no lymphadenopathy; trachea midline Skin: warm, dry without signs of tenting; bruising on the knees bilaterally, and bruising/lambert on the left upper back and flank CV: chest wall NTP; RRR; S1/S2 normal; no murmurs/rubs/gallops; pulses intact and symmetric at radial, DP, and PT Lungs: no acute respiratory distress; symmetrical chest wall expansion; clear breath sounds across all lung wade w/o adventitious sounds; no wheezing ABD: Soft, NTP; BS present; no rebound/guarding; no distention MSK: no tics or fasciculations; RLE swelling > left, nonerythematous; purpuric rash noted on the right ankle Neuro: Oriented to name, but not oriented to date of /month; incoherent thought processes; slurred/garbled speech; no facial droop; patient reports that sensation is intact and symmetric in the face/UE/LE bilaterally Principal Diagnosis astrocytoma, h/o seizures & AMS Discharge Exam Constitutional: NAD, WD/WN HEENT: NCAT, PERRL CV: RRR, no m/r/g, S1/S2 normal, Resp: CTAB, symmetrical chest rise, breathing non-labored Skin: Warm, dry, pink, no rashes or lesions Neuro: AOx3, CN II-XII grossly intact, right UE + LE str 4/5, nl sensation Psych: Mood-affect congruent. Speech pace and content normal. No SI/HI/AVH Discharge Data Allergies Allergy/AdvReac Type Severity Reaction Status Date / Time No Known Allergies Allergy Verified 11/09/23 16:13 Consultations 11/19/23 16:55 ED Decision to Admit Stat 11/19/23 18:10 Consult Neurology Routine 11/19/23 19:46 Consult Psychiatry Routine 11/21/23 17:45 Consult Palliative Care Routine Ordered Studies 11/19/23 15:19 CT head/brain wo con Stat 11/19/23 17:16 US venous doppler LE RT Stat 11/19/23 17:17 MR brain wo con Stat 12/02/23 11:36 MRI Brain [MR brain wo con] Urgent Hospital Course (1) Acute alteration in mental status: (2) History of seizures: (3) Anaplastic astrocytoma: Plan Patient with h/o astrocytoma, s/p surgery + chemo/rad, was hospitalized for altered mental status and suspected seizure. Anaplastic astrocytoma: - Dx in Feb 2020, S/p surgical intervention + chemotherapy/radiation - Brain MRI from 12/01 showed increase in vasogenic edema w right midline shift, compared to last brain MRI from 11/18 - New onset (~12/02) right UE + LE weakness and bilateral LE decreased coordination; strength and coordination improving daily, not quite back to baseline at discharge - Corticosteroids stopped at admission. Resumed dexamethasone 4mg IV upon new sx and MRI findings - Will update [place] [facility] [place] continued [place] upon [place] as well as findings from latest MRI and follow up appts. AMS - resolved, patient now at baseline AOx3 - concern for toxic ingestion; seen by psych, who felt pt has adjustment disorder with depressed mood and would benefit from mirtazapine (7.5mg HS prn) & fluoxetine H/o seizures - last known seizure was 03/25/23 - Continue Keppra to 1500mg po bid - Continue gabapentin 300mg po tid Total Time Total Time Spent Total Time Spent (In Minutes): See attending documentation Discharge Plan Discharge Items Patient Disposition: [facility] Reason For Visit: AMS, SEIZURE Discharge Diagnosis: Astrocytoma, h/o seizures Activity: Per Instructions section Non-emergency contact: Primary Care Provider Call non-emergency contact if: you have any medication questions and your symp toms worsen Follow-up/Referrals: Lesley Melgoza DO [Primary Care Provider] - Diet: Regular Addtl Attending Provider Instructions: Patient with h/o astrocytoma, s/p surgery + chemo/rad, was hospitalized for altered mental status and suspected seizure. Anaplastic astrocytoma: - Dx in Feb 2020, S/p surgical intervention + chemotherapy/radiation - Brain MRI from 12/01 showed increase in vasogenic edema w right midline shift, compared to last brain MRI from 11/18 - New onset (~12/02) right UE + LE weakness and bilateral LE decreased coordinati on; strength and coordination improving daily, not quite back to baseline at discharge - Corticosteroids stopped at admission. Resumed dexamethasone 4mg IV upon new sx and MRI findings - Will update oncologist [place] [facility] [place] continued corticosteroids upon discharge as well as findings from latest MRI and follow up appts. AMS - resolved, patient now at baseline AOx3 - concern for toxic ingestion; seen by psych, who felt pt has adjustment disorder with depressed mood and would benefit from mirtazapine (7.5mg HS prn) & fluoxetine H/o seizures - last known seizure was 03/25/23 - Continue Keppra to 1500mg po bid - Continue gabapentin 300mg po tid Pending Studies at Discharge: No Stand-Alone Forms: My [employer], Smoking Cessation Skilled Items Patient informed of condition?: Yes DNR: No Discharge Level of Care: Other Communicable Disease: No Discharge Prognosis: Stable Lines: None Urinary Catheter: No Medications and DC Order Prescriptions: New dabigatran etexilate [Pradaxa] 150 mg capsule 150 mg PO BID 60 Days Qty: 120 0RF Continued Medical Thc 1 dose PO UD PRN (Reason: Anxiety) multivitamin Tablet 1 tab PO QAM 60 Days Qty: 60 0RF atorvastatin 10 mg tablet 10 mg PO QAM 60 Days Qty: 0 0RF tamsulosin 0.4 mg capsule 0.4 mg PO UD 60 Days Qty: 60 0RF Rx Instructions: 0.4 mg po qam last filled 07/04 30 day supply levetiracetam 1,000 mg tablet 1,000 mg PO BID 60 Days Qty: 120 0RF Changed divalproex 500 mg tablet,delayed release (DR/EC) 500 mg PO UD 60 Days Qty: 60 0RF Rx Instructions: 500 mg po bid last filled 09/24 60 day supply dexamethasone 4 mg tablet 4 mg PO UD 60 Days Qty: 60 0RF Rx Instructions: 4 mg po bid filled 11/15 3 day supply. Discontinued apixaban 5 mg Tablet 5 mg PO [facility] Discharge Orders: Discharge Order (Routine); Ordered 12/05/23 Ordered By: Flaquita Hodgson Admission Data Admit Date/Time: 11/19/23 17:32 Attending Provider: Marvin Wood Admit Provider: Jose Manuel Longo Primary Care Provider: Lesley Melgoza Other Providers: Az Farias; Jose Manuel Longo; Omar Brady; Justyna Quezada; David Joseph; Collins Stock Jr; Casi Murray; Natali Saha; Luis E Colon; Christina Garcia Other Interventions: Discharge Summary Assessment (RN) Last Done: 12/05/23 14:48 Supervising Physician Co-Signing Physician Notes Attending attestation Pt seen and examined in concert with Dr. Hodgson. In agreement with the documented findings as noted in the resident documentation with any exceptions or additions as noted here. Resting comfortably in bed, tangential and confused at purported baseline. Conversation with POA (brother) re: code status would prefer to return to DNR/DNI, but POLST completed by patient as noted. On examination, S1/S2 nl RRR no MCG. CTAB. Abd NT/ND BS+ve Delirium in the setting of anaplastic astrocytoma - returned to baseline, though still tangential and confused intermittently. Tapering gabapentin due to intolerance without recurrence of symptoms, can complete taper this week so long as continues to tolerate. Will contact patient's primary oncology team [place] [facility] [place] of care and support and continuation of steroid therapy. History of seizures in the setting of above - continue keppra 1500mg BID and tapering gabapentin from qHS gradually over the next 7 days. Else see resident documentation as noted. Total attending physician time spent with this patient's care on the day of discharge: 40 minutes. Resident Activity Tracking Resident Involvement: Resident Care Provided Care Provided: Adult Hospital Medicine
== END 2023-12-05 15:29 | disposition home or self-care (01) | DRG 91 ==
LOC: ED 15:07 → SUATTDRO 17:32 → INTOOBSV 17:32 → EDINP 17:32 → 2E 19:30 → 3N 11-21 18:19